=== PATIENT | female | born 1970 | race Caucasian/White ===

== ENCOUNTER 2018-01-15 10:51 | Inpatient (IN) | payer BC ==
--- NOTE | 2018-01-15 12:10 | HP ---
CIWA Score - CIWA Score Nausea/Vomitin Muscle Tremors: 3 Anxiety: 3 Agitation: 2 Paroxysmal Sweats: 1-Minimal Palms Moist Orientation: 0-Oriented Tacttile Disturbances: 1-Very Mild Itch/Numbness Auditory Disturbances: 1-Very Mild Visual Disturbances: 0-None Headache: 2-Mild CIWA-Ar Total Score: 16 Admission ROS BHS - HPI Chief Complaint: i need help to stop drinking alcoho,heroin abused Allergies/Adverse Reactions: Allergies Allergy/AdvReac Type Severity Reaction Status Date / Time Fish Containing Products Allergy Verified 01/15/18 12:04 History of Present Illness: this 47 years old female with alcohol and heroin dependence,seeking detox, withdrawal symptom,last detox 2017 unknown facility in the city seen in [place] last night history of anemia weight loss no significant period of sobriety Exam Limitations: No Limitations - Ebola screening Have you traveled outside of the country in the last 21 days: No Have you had contact with anyone from an Ebola affected area: No Have you been sick,other than usual withdrawal symptoms: No Do you have a fever: No - Review of Systems Constitutional: Loss of Appetite, Malaise, Night Sweats, Changes in sleep, Weakness, Unintentional Wgt. Loss EENT: reports: Nose Congestion Respiratory: reports: No Symptoms reported Cardiac: reports: No Symptoms Reported GI: reports: Nausea, Vomiting, Abdominal cramping : reports: No Symptoms Reported Musculoskeletal: reports: Back Pain, Muscle Pain Integumentary: reports: Dryness Neuro: reports: Headache, Tremors Endocrine: reports: No Symptoms Reported Hematology: reports: No Symptoms Reported Psychiatric: reports: No Sypmtoms Reported, Judgement Intact, Mood/Affect Appropiate Patient History - Patient Medical History Hx Anemia: No Hx Asthma: No Hx Chronic Obstructive Pulmonary Disease (COPD): No Hx Cancer: No Hx Cardiac Disorders: No Hx Congestive Heart Failure: No Hx Hypertension: No Hx Hypercholesterolemia: No Hx Pacemaker: No HX Cerebrovascular Accident: No Hx Seizures: No Hx Dementia: No Hx Diabetes: No Hx Gastrointestinal Disorders: No Hx Liver Disease: No Hx Genitourinary Disorders: No Hx Sexually Transmitted Disorders: No Hx Renal Disease (ESRD): No Hx Thyroid Disease: No Hx Human Immunodeficiency Virus (HIV): No (last ) Hx Hepatitis C: No Hx Depression: No Hx Suicide Attempt: No Hx Bipolar Disorder: No Hx Schizophrenia: No Other Medical History: no suicidal,no homicidal - Patient Surgical History Past Surgical History: No - PPD History Previous Implant?: Yes Documented Results: Negative w/o proof Implanted On Prior [facility] Admission?: No PPD to be Administered?: Yes - Reproductive History Patient is a Female of Child Bearing Age (11 -55 yrs old): Yes Last Menstrual Period: 12/04/17 Patient : No - Smoking Cessation Smoking history: Never smoked - Substance & Tx. History Hx Alcohol Use: Yes Hx Substance Use: Yes Substance Use Type: Alcohol, Heroin Hx Substance Use Treatment: Yes (2017 unknown facility ) Family Disease History - Family Disease History Family Disease History: Other: Father (alcohol ) Admission Physical Exam [facility] - Vital Signs Vital Signs: Vital Signs - 24 hr 01/15/18 01/15/18 11:23 11:36 Temperature 97.4 F L 97.4 F L Pulse Rate 97 H 97 H Respiratory 18 18 Rate Blood Pressure 101/68 101/68 - Physical General Appearance: Yes: Moderate Distress, Tremorous, Irritable, Sweating, Anxious HEENTM: Yes: Normal ENT Inspection, ROSALBA, Pharynx Normal Respiratory: Yes: Within Normal Limits, Lungs Clear, Normal Breath Sounds Neck: Yes: Within Normal Limits, Supple, Trachea in good position Breast: Yes: Breast Exam Deferred Cardiology: Yes: Within Normal Limits, Regular Rhythm, Regular Rate, S1, S2 Abdominal: Yes: Within Normal Limits, Normal Bowel Sounds, Non Tender, Flat, Soft Genitourinary: Yes: Within Normal Limits Back: Yes: Muscle Spasm Musculoskeletal: Yes: full range of Motion, Back pain, Muscle Pain Extremities: Yes: Tremors Neurological: Yes: building maintenance mechanic II-XII NML intact, Alert, Motor Strength 5/5 Integumentary: Yes: Dry, Other (tattoes) Lymphatic: Yes: Within Normal Limits - Diagnostic (1) Alcohol dependence with uncomplicated withdrawal Current Visit: Yes Status: Acute (2) Heroin abuse Current Visit: Yes Status: Acute (3) Dehydration Current Visit: Yes Status: Acute (4) Weight loss Current Visit: Yes Status: Acute Cleared for Admission [facility] - Detox or Rehab [facility] Level of Care: Medically Managed Detox Regimen/Protocol: Librium (urine for drug screeing negative for opiate, patient is awared she will not get methadone ) [facility] Breath Alcohol Content Breath Alcohol Content: 0.088 Urine Pregancy Test - Result Urine Test Results: Negative- NO Line Present Urine Drug Screen - Results Drug Screen Negative: No Urine Drug Screen Results: BZO-Benzodiazepines, TCA-Tricyclic Antidepress
[2018-01-15] MEDS ORDERED: MAGNESIUM HYDROX 2400MG/30ML ORAL SUSPENSION 30 ML CUP PO PRN (12:31)
[2018-01-15] MEDS ORDERED: guaiFENesin/D-METHORPHAN HB 10 ML UNIT-DOSE CUPS PO PRN (12:31)
[2018-01-15] MEDS ORDERED: IBUPROFEN 400 MG TABLET (FP) PO PRN (12:31)
[2018-01-15] MEDS ORDERED: LOPERAMIDE HCL 2 MG CAPSULE PO PRN (12:31)
[2018-01-15] MEDS ORDERED: MAGNESIUM CITRATE 300 ML BOTTLE PO PRN (12:31)
[2018-01-15] MEDS ORDERED: P-EPHED 60MG/TRIPROLIDI 2.5MG TABLET PO PRN (12:31)
[2018-01-15] MEDS ORDERED: MENTHOL/PHENOL 1 EACH UD MM PRN (12:31)
[2018-01-15] MEDS ORDERED: MAG HYDROX/AL HYDROX/SIMETH 30 ML UNIT-DOSE CUP PO PRN (12:31)
[2018-01-15] MEDS ORDERED: chlordiazePOXIDE HCL 25 MG CAPSULE PO PRN (12:31)
[2018-01-15] MEDS ORDERED: ACETAMINOPHEN 325 MG TABLET (FP) PO PRN (12:31)
[2018-01-15] MEDS ORDERED: CYCLOBENZAPRINE HCL 5 MG TABLET PO PRN (12:34)
[2018-01-15] MEDS ORDERED: chlordiazePOXIDE HCL 25 MG CAPSULE PO ONE (13:00)
[2018-01-15] MEDS: chlordiazePOXIDE HCL 25 MG CAPSULE PO SCH ×2 (17:53→22:34)
[2018-01-15] MEDS ORDERED: MELATONIN 5 MG TABLETS PO PRN (22:00)
[2018-01-15] MEDS: cloNIDine HCL 0.1 MG TABLET PO SCH (22:34)
[2018-01-15] MEDS: THIAMINE HCL 100 MG TABLET (FP) PO SCH (22:34)
[2018-01-16] MEDS: chlordiazePOXIDE HCL 25 MG CAPSULE PO SCH ×4 (08:27→22:59)
[2018-01-16 10:17] LABS: HEMATOCRIT 22.4 % (32.4-45.2); MCHC 30.8 g/dl (32.0-36.0); MEAN CELL VOLUME 63.4 fl (80-96); MEAN PLT VOLUME 7.7 fl (7.5-11.1); PLATELET COUNT 467 K/MM3 (134-434); RBC 3.54 M/mm3 (3.60-5.2); RDW 21.4 % (11.6-15.6); WHITE BLOOD COUNT 5.8 K/mm3 (4.0-10.0)
[2018-01-16 10:28] LABS: MCH 19.5 pg (25.7-33.7)
[2018-01-16 10:30] LABS: HEMOGLOBIN 6.9 GM/dL (10.7-15.3)
[2018-01-16 10:32] LABS: URINE APPEARANCE SLCLOUDY; URINE BILIRUBIN NEGATIVE (<2.0 mg/dL); URINE COLOR LTYELLOW; URINE GLUCOSE (UA) NEGATIVE (NEGATIVE); URINE KETONE NEGATIVE (NEGATIVE); URINE LEUK ESTERASE NEGATIVE (NEGATIVE); URINE NITRITE NEGATIVE (NEGATIVE); URINE PROTEIN NEGATIVE (NEGATIVE); URINE UROBILINOGEN NEGATIVE mg/dL (0.2-1.0)
[2018-01-16 10:36] LABS: ALK PHOS 64 U/L (45-117); ANION GAP 9 (8-16); BILIRUBIN,TOTAL 0.3 mg/dL (0.2-1.0); BLOOD UREA NITROGEN 16 mg/dL (7-18); CALCIUM 8.6 mg/dL (8.5-10.1); CHLORIDE 104 mmol/L (98-107); CO2 25 mmol/L (21-32); CREATININE 0.7 mg/dL (0.55-1.02); GLUCOSE,RANDOM 80 mg/dL (74-106); SGOT/AST 27 U/L (15-37); SGPT/ALT 25 U/L (12-78); SODIUM 138 mmol/L (136-145); TOT PROT 8.4 g/dl (6.4-8.2)
--- NOTE | 2018-01-16 10:45 | PN ---
S CIWA - CIWA Score Nausea/Vomitin Muscle Tremors: 2 Anxiety: 2 Agitation: 2 Paroxysmal Sweats: 2 Orientation: 0-Oriented Tacttile Disturbances: 1-Very Mild Itch/Numbness Auditory Disturbances: 1-Very Mild Visual Disturbances: 1-Very Mild Sensitivity Headache: 2-Mild CIWA-Ar Total Score: 15 S Progress Note (SOAP) Subjective: Generalized weakness, interrupted sleep, restlessness Objective: 01/16/18 10:42 Vital Signs - 8 hr 01/16/18 01/16/18 01/16/18 03:30 06:00 10:35 Temperature 96.6 F L 97.9 F Pulse Rate 85 96 H Respiratory 16 18 16 Rate Blood Pressure 107/65 94/58 Laboratory Last Values WBC 5.8 K/mm3 (4.0-10.0) 01/16/18 05:30 RBC 3.54 M/mm3 (3.60-5.2) L 01/16/18 05:30 Hgb 6.9 GM/dL (10.7-15.3) L* 01/16/18 05:30 Hct 22.4 % (32.4-45.2) L 01/16/18 05:30 MCV 63.4 fl (80-96) L 01/16/18 05:30 MCH 19.5 pg (25.7-33.7) L 01/16/18 05:30 MCHC 30.8 g/dl (32.0-36.0) L 01/16/18 05:30 RDW 21.4 % (11.6-15.6) H 01/16/18 05:30 Plt Count 467 K/MM3 (134-434) H 01/16/18 05:30 MPV 7.7 fl (7.5-11.1) 01/16/18 05:30 Urine Color Ltyellow 01/16/18 05:50 Urine Appearance Slcloudy 01/16/18 05:50 Urine pH 5.0 (5.0-8.0) 01/16/18 05:50 Ur Specific [place] 1.009 (1.001-1.035) 01/16/18 05:50 Urine Protein Negative (NEGATIVE) 01/16/18 05:50 Urine Glucose (UA) Negative (NEGATIVE) 01/16/18 05:50 Urine Ketones Negative (NEGATIVE) 01/16/18 05:50 Urine Blood Negative (NEGATIVE) 01/16/18 05:50 Urine Nitrite Negative (NEGATIVE) 01/16/18 05:50 Urine Bilirubin Negative (<2.0 mg/dL) 01/16/18 05:50 Urine Urobilinogen Negative mg/dL (0.2-1.0) 01/16/18 05:50 Ur Leukocyte Esterase Negative (NEGATIVE) 01/16/18 05:50 HIV 1&2 Antibody Screen Negative 01/15/18 12:30 HIV P24 Antigen Negative 01/15/18 12:30 Labs noted-low H/H Assessment: 01/16/18 10:43 Withdrawal sx Anemia with critical values, patient reports h/o blood transfusions, most recent in June at a [facility] Plan: Transfer to ED for possible BT Continue detox
[2018-01-16] MEDS: PRENATAL VITAMINS W/ FOLIC ACID TABLET (FP) PO SCH (10:56)
[2018-01-16] MEDS: cloNIDine HCL 0.1 MG TABLET PO SCH ×2 (10:57→22:59)
[2018-01-16] MEDS: THIAMINE HCL 100 MG TABLET (FP) PO SCH (23:00)
[2018-01-17] MEDS: chlordiazePOXIDE HCL 25 MG CAPSULE PO SCH ×2 (06:34→10:41)
[2018-01-17] MEDS: PRENATAL VITAMINS W/ FOLIC ACID TABLET (FP) PO SCH (10:41)
[2018-01-17] MEDS: cloNIDine HCL 0.1 MG TABLET PO SCH (10:41)
--- NOTE | 2018-01-17 15:12 | PN ---
[facility] CIWA - CIWA Score Nausea/Vomitin-No Nausea/No Vomiting Muscle Tremors: 4-Moderate,w/Arms Extend Anxiety: 4-Mod. Anxious/Guarded Agitation: 4-Moderately Restless Paroxysmal Sweats: 1-Minimal Palms Moist Orientation: 0-Oriented Tacttile Disturbances: 0-None Auditory Disturbances: 0-None Visual Disturbances: 0-None Headache: 0-None Present CIWA-Ar Total Score: 13 [facility] Progress Note (SOAP) Subjective: sweat tremor restlessness returned to [facility] after 2 units blood transfusion denies shortness of breath no blood transfusion complication noted eating meals in day room with peers Objective: 01/17/18 15:14 Vital Signs Temperature 96.8 F L 01/17/18 10:00 Pulse Rate 82 01/17/18 10:00 Respiratory Rate 18 01/17/18 10:00 Blood Pressure 105/72 01/17/18 10:00 O2 Sat by Pulse Oximetry (%) Laboratory Last Values WBC 5.8 K/mm3 (4.0-10.0) 01/16/18 05:30 RBC 3.54 M/mm3 (3.60-5.2) L 01/16/18 05:30 Hgb 6.9 GM/dL (10.7-15.3) L* 01/16/18 05:30 Hct 22.4 % (32.4-45.2) L 01/16/18 05:30 MCV 63.4 fl (80-96) L 01/16/18 05:30 MCH 19.5 pg (25.7-33.7) L 01/16/18 05:30 MCHC 30.8 g/dl (32.0-36.0) L 01/16/18 05:30 RDW 21.4 % (11.6-15.6) H 01/16/18 05:30 Plt Count 467 K/MM3 (134-434) H 01/16/18 05:30 MPV 7.7 fl (7.5-11.1) 01/16/18 05:30 Sodium 138 mmol/L (136-145) 01/16/18 05:30 Potassium 4.0 mmol/L (3.5-5.1) 01/16/18 05:30 Chloride 104 mmol/L (98-107) 01/16/18 05:30 Carbon Dioxide 25 mmol/L (21-32) 01/16/18 05:30 Anion Gap 9 (8-16) 01/16/18 05:30 BUN 16 mg/dL (7-18) 01/16/18 05:30 Creatinine 0.7 mg/dL (0.55-1.02) 01/16/18 05:30 Creat Clearance w eGFR > 60 (>60) 01/16/18 05:30 Random Glucose 80 mg/dL (74-106) 01/16/18 05:30 Calcium 8.6 mg/dL (8.5-10.1) 01/16/18 05:30 Total Bilirubin 0.3 mg/dL (0.2-1.0) 01/16/18 05:30 AST 27 U/L (15-37) 01/16/18 05:30 ALT 25 U/L (12-78) 01/16/18 05:30 Alkaline Phosphatase 64 U/L (45-117) 01/16/18 05:30 Total Protein 8.4 g/dl (6.4-8.2) H 01/16/18 05:30 Albumin 4.0 g/dl (3.4-5.0) 01/16/18 05:30 Urine Color Ltyellow 01/16/18 05:50 Urine Appearance Slcloudy 01/16/18 05:50 Urine pH 5.0 (5.0-8.0) 01/16/18 05:50 Ur Specific [place] 1.009 (1.001-1.035) 01/16/18 05:50 Urine Protein Negative (NEGATIVE) 01/16/18 05:50 Urine Glucose (UA) Negative (NEGATIVE) 01/16/18 05:50 Urine Ketones Negative (NEGATIVE) 01/16/18 05:50 Urine Blood Negative (NEGATIVE) 01/16/18 05:50 Urine Nitrite Negative (NEGATIVE) 01/16/18 05:50 Urine Bilirubin Negative (<2.0 mg/dL) 01/16/18 05:50 Urine Urobilinogen Negative mg/dL (0.2-1.0) 01/16/18 05:50 Ur Leukocyte Esterase Negative (NEGATIVE) 01/16/18 05:50 RPR Titer Nonreactive (NONREACTIVE) 01/16/18 05:30 HIV 1&2 Antibody Screen Negative 01/15/18 12:30 HIV P24 Antigen Negative 01/15/18 12:30 lab noted Assessment: 01/17/18 15:14 withdrawal sx s/p blood transfusion Plan: continue detox
[2018-01-17] MEDS: chlordiazePOXIDE 5 MG CAPSULE PO SCH (18:05)
[2018-01-18] MEDS: THIAMINE HCL 100 MG TABLET (FP) PO SCH (00:23)
[2018-01-18] MEDS: cloNIDine HCL 0.1 MG TABLET PO SCH (00:23)
[2018-01-18] MEDS: chlordiazePOXIDE 5 MG CAPSULE PO SCH ×2 (00:23→05:37)
[2018-01-18 07:09] VITALS: BP 106/72; PULSE 64; TEMP 97.7
--- NOTE | 2018-01-18 09:51 | DS ---
[facility] Detox Discharge Summary Admission Date: 01/15/18 Discharge Date: 01/18/18 - History Present History: Alcohol Dependence Additional Comments: 47 years old female admitted on 01/15/18 for alcohol withdrawal sx patient prefers to return home and follow up with primary care hemotologist in [facility] total of six blood transfusion over the past few years reports major drug issue is cocaine encourage chemical rehab program patient said that she lives in the [place] and is closer to [facility] - Physical Exam Results Vital Signs: Vital Signs Temperature 97.7 F 01/18/18 07:08 Pulse Rate 64 01/18/18 07:08 Respiratory Rate 18 01/18/18 07:08 Blood Pressure 106/72 01/18/18 07:08 O2 Sat by Pulse Oximetry (%) Pertinent Admission Physical Exam Findings: alcohol withdrawal sx Vital Signs Temperature 97.7 F 01/18/18 07:08 Pulse Rate 64 01/18/18 07:08 Respiratory Rate 18 01/18/18 07:08 Blood Pressure 106/72 01/18/18 07:08 O2 Sat by Pulse Oximetry (%) Laboratory Last Values WBC 5.8 K/mm3 (4.0-10.0) 01/16/18 05:30 RBC 3.54 M/mm3 (3.60-5.2) L 01/16/18 05:30 Hgb 6.9 GM/dL (10.7-15.3) L* 01/16/18 05:30 Hct 22.4 % (32.4-45.2) L 01/16/18 05:30 MCV 63.4 fl (80-96) L 01/16/18 05:30 MCH 19.5 pg (25.7-33.7) L 01/16/18 05:30 MCHC 30.8 g/dl (32.0-36.0) L 01/16/18 05:30 RDW 21.4 % (11.6-15.6) H 01/16/18 05:30 Plt Count 467 K/MM3 (134-434) H 01/16/18 05:30 MPV 7.7 fl (7.5-11.1) 01/16/18 05:30 Sodium 138 mmol/L (136-145) 01/16/18 05:30 Potassium 4.0 mmol/L (3.5-5.1) 01/16/18 05:30 Chloride 104 mmol/L (98-107) 01/16/18 05:30 Carbon Dioxide 25 mmol/L (21-32) 01/16/18 05:30 Anion Gap 9 (8-16) 01/16/18 05:30 BUN 16 mg/dL (7-18) 01/16/18 05:30 Creatinine 0.7 mg/dL (0.55-1.02) 01/16/18 05:30 Creat Clearance w eGFR > 60 (>60) 01/16/18 05:30 Random Glucose 80 mg/dL (74-106) 01/16/18 05:30 Calcium 8.6 mg/dL (8.5-10.1) 01/16/18 05:30 Total Bilirubin 0.3 mg/dL (0.2-1.0) 01/16/18 05:30 AST 27 U/L (15-37) 01/16/18 05:30 ALT 25 U/L (12-78) 01/16/18 05:30 Alkaline Phosphatase 64 U/L (45-117) 01/16/18 05:30 Total Protein 8.4 g/dl (6.4-8.2) H 01/16/18 05:30 Albumin 4.0 g/dl (3.4-5.0) 01/16/18 05:30 Urine Color Ltyellow 01/16/18 05:50 Urine Appearance Slcloudy 01/16/18 05:50 Urine pH 5.0 (5.0-8.0) 01/16/18 05:50 Ur Specific [place] 1.009 (1.001-1.035) 01/16/18 05:50 Urine Protein Negative (NEGATIVE) 01/16/18 05:50 Urine Glucose (UA) Negative (NEGATIVE) 01/16/18 05:50 Urine Ketones Negative (NEGATIVE) 01/16/18 05:50 Urine Blood Negative (NEGATIVE) 01/16/18 05:50 Urine Nitrite Negative (NEGATIVE) 01/16/18 05:50 Urine Bilirubin Negative (<2.0 mg/dL) 01/16/18 05:50 Urine Urobilinogen Negative mg/dL (0.2-1.0) 01/16/18 05:50 Ur Leukocyte Esterase Negative (NEGATIVE) 01/16/18 05:50 RPR Titer Nonreactive (NONREACTIVE) 01/16/18 05:30 HIV 1&2 Antibody Screen Negative 01/15/18 12:30 HIV P24 Antigen Negative 01/15/18 12:30 lab noted patient agrees to follow up with [facility] services - Treatment Hospital Course: Detox Protocol Followed, Detoxed Safely, Responded well, Discharged Condition Good, Rehab Referral Accepted Patient has Accepted a Rehab Referral to: [facility] ser[facility] - Medication Discharge Medications: Ambulatory Orders Chlordiazepoxide [Librium -] 25 mg PO ASDIR 01/16/18 Clonidine HCl [Catapres] 0.1 mg PO BID 01/16/18 Vit/Iron Fum/Folic AC [ Tablet] 1 each PO DAILY 01/16/18 Thiamine HCl [Vitamin B1 -] 100 mg PO HS 01/16/18 - Diagnosis (1) Alcohol dependence with uncomplicated withdrawal Current Visit: Yes Status: Acute (2) Weight loss Current Visit: Yes Status: Acute (3) Anemia Current Visit: Yes Status: Chronic Qualifiers: Anemia type: unspecified type Qualified Code(s): D64.9 - Anemia, unspecified - AMA Did Patient Leave Against Medical Advice: No
--- NOTE | 2018-01-18 11:10 | EKG ---
Test Reason : Blood Pressure : / mmHG Vent. Rate : 100 BPM Atrial Rate : 100 BPM P-R Int : 120 ms QRS Dur : 092 ms QT Int : 362 ms P-R-T Axes : 064 059 -32 degrees QTc Int : 466 ms NORMAL SINUS RHYTHM POSSIBLE LEFT ATRIAL ENLARGEMENT NONSPECIFIC ST AND T WAVE ABNORMALITY ABNORMAL ECG NO PREVIOUS ECGS AVAILABLE Confirmed by SMITHA BRODY MD ([id number]) on 01/18/2018 11:10:19 AM Referred By: Confirmed By:SMITHA BRODY MD
[2018-01-18] MEDS ORDERED: chlordiazePOXIDE HCL 10 MG CAPSULE PO SCH (17:00)
== END 2018-01-18 10:35 | disposition home or self-care (01) | DRG 773 ==
LOC: EDBD → YASAS 10:51 → Y6N 12:32
PROVIDERS: ADMIT Surgery; ATTEND Surgery
PROC: HZ2ZZZZ Detoxification Services for Substance Abuse Treatment (ICD-10-PCS; principal; 2018-01-15)
DX: F10.230 Alcohol dependence with withdrawal, uncomplicated (principal); F11.10 Opioid abuse, uncomplicated; D64.9 Anemia, unspecified; E86.0 Dehydration; R63.4 Abnormal weight loss; Z68.20 Body mass index [BMI] 20.0-20.9, adult
CPT/HCPCS: 36415; 80053; 81003; 85027; 86593; 87389; 93005; 93010; J0735

== ENCOUNTER 2018-01-16 13:18 | Emergency (ER) | payer BC ==
--- NOTE | 2018-01-16 14:15 | PDOC ---
History of Present Illness - General Chief Complaint: Blood Transfusion Stated Complaint: LOW HEMOGLOBIA COUNTS Time Seen by Provider: 01/16/18 13:39 History Source: Patient, Other (detox) - History of Present Illness Timing/Duration: other (today) Past History - Past Medical History Allergies/Adverse Reactions: Allergies Allergy/AdvReac Type Severity Reaction Status Date / Time Fish Containing Products Allergy Verified 01/15/18 12:04 Home Medications: Ambulatory Orders NK [No Known Home Medication] 01/15/18 Anemia: No Asthma: No Cancer: No Cardiac Disorders: No CVA: No COPD: No CHF: No Dementia: No Diabetes: No GI Disorders: No Disorders: No HTN: No Hypercholesterolemia: No Kidney Stones: No Liver Disease: No Seizures: No Thyroid Disease: No - Reproductive History PID: No - Suicide/Smoking/Psychosocial Hx Smoking History: Never smoked Hx Alcohol Use: Yes Drug/Substance Use Hx: Yes Substance Use Type: Alcohol, Heroin Hx Substance Use Treatment: Yes (2017 unknown facility ) Review of Systems - Review of Systems Constitutional: No: Chills, Fever, Malaise, Weakness Respiratory: No: Shortness of Breath Cardiac (ROS): No: Chest Pain, Lightheadedness, Palpitations, Syncope ABD/GI: No: Blood Streaked Bowels, Nausea, Rectal Bleeding, Vomiting, Abdominal cramping *Physical Exam - Physical Exam General Appearance: Yes: Appropriately Dressed. No: Apparent Distress HEENT: positive: Normal Voice Neck: positive: Supple Respiratory/Chest: positive: Lungs Clear, Normal Breath Sounds. negative: Respiratory Distress Cardiovascular: positive: Regular Rate, S1, S2 Gastrointestinal/Abdominal: positive: Soft. negative: Tender Rectal Exam: positive: other (pt refused rectal/guaiac exam) Integumentary: positive: Dry, Warm Neurologic: positive: Fully Oriented, Alert, Normal Mood/Affect ED Treatment Course - LABORATORY CBC & Chemistry Diagram: 01/16/18 15:05 01/16/18 15:05 Medical Decision Making - Medical Decision Making 01/16/18 14:15 47-year-old female, history of polysubstance abuse, anemia, s/p transfusion x 1 at OSH 07/09, endorses h/o menorrhagia, LMP last month, no h/o fibroids, detox at [address] [place] for hemoglobin of 6 on routine labs today. Patient states she feels well and denies any dizziness, weakness, shortness of breath, abd pain, vag bleed, melena or BRBPR. States she currently does not have a PMD see exam Asx anemia Hgb ~6 at [facility] today Endorses h/o menorrhagia, no known fibroids, LMP 12/07 S/p transfusion x 1, 07/09 at OSH Poor f/u Stable and well raimundo w/ unremarkable exam, patient refusing rectal exam at this time -labs including iron studies -transfuse -admit to OBs though pt states she will not stay overnight though agrees to transfusion at this time (A&O x 3, does not appear acutely intoxicated, appears to have capacity at this time) 01/16/18 15:41 Microcytic hypochromic anemia with hemoglobin of 7 on labs. Unsure baselien as no prior lab on record here. Will transfuse 2 units. Patient told that usually patients get admitted after transfusion to observe for any potential reactions. Patient verbalized understanding, but continues to state that she agrees to transfusion, but wants to be transferred back to [address] [place] [address]. ED attending aware 01/16/18 15:48 Per lab, need additional tubes for iron studies. Patient informed but at this time refusing for ER staff to draw additional specimen 01/16/18 16:56 Pt finally consents to vitals taken and stable. Blood ready 01/16/18 19:09 Pt signed out to spike ASHLEY who is made aware that patient does not want to be kept for observation overnight and will most likely after signing out AGAINST MEDICAL ADVICE to return to [facility] *DC/Admit/Observation/Transfer Diagnosis at time of Disposition: Anemia Qualifiers: Anemia type: unspecified type Qualified Code(s): D64.9 - Anemia, unspecified - Referrals - Patient Instructions - Post Discharge Activity
[2018-01-16 15:13] LABS: BASO % 1.2 % (0-2.0); EOS % 3.3 % (0-4.5); HEMATOCRIT 22.6 % (32.4-45.2); LYMPH % 40.3 % (8-40); MCH 19.5 pg (25.7-33.7); MCHC 30.8 g/dl (32.0-36.0); MEAN CELL VOLUME 63.3 fl (80-96); MEAN PLT VOLUME 8.6 fl (7.5-11.1); MONO % 8.9 % (3.8-10.2); NEUT % 46.3 % (42.8-82.8); PLATELET COUNT 372 K/MM3 (134-434); RBC 3.57 M/mm3 (3.60-5.2); WHITE BLOOD COUNT 4.4 K/mm3 (4.0-10.0)
[2018-01-16 15:24] LABS: INR 0.96 (0.82-1.09); PROTHROMBIN TIME (PATIENT) 10.9 SEC (9.7-13.0)
[2018-01-16 15:37] LABS: ALBUMIN 3.5 g/dl (3.4-5.0); ANION GAP 10 (8-16); BILIRUBIN,TOTAL 0.3 mg/dL (0.2-1.0); BLOOD UREA NITROGEN 20 mg/dL (7-18); CALCIUM 8.9 mg/dL (8.5-10.1); CHLORIDE 104 mmol/L (98-107); CO2 27 mmol/L (21-32); CREATININE 0.7 mg/dL (0.55-1.02); GLUCOSE,RANDOM 83 mg/dL (74-106); POTASSIUM 3.7 mmol/L (3.5-5.1); SGOT/AST 18 U/L (15-37); SGPT/ALT 22 U/L (12-78); SODIUM 141 mmol/L (136-145); TOT PROT 7.7 g/dl (6.4-8.2)
[2018-01-16 15:39] LABS: ALK PHOS 65 U/L (45-117)
[2018-01-16 16:02] LABS: ANISOCYTOSIS 2+; PLATELET ESTIMATE ADEQUATE
--- NOTE | 2018-01-16 23:41 | PDOC ---
*Physical Exam - Vital Signs Last Vital Signs Temp Pulse Resp BP Pulse Ox 97.7 F 81 20 105/70 100 01/16/18 17:55 01/16/18 17:55 01/16/18 17:55 01/16/18 17:55 01/16/18 17:55 ED Treatment Course - LABORATORY CBC & Chemistry Diagram: 01/16/18 15:05 01/16/18 15:05 - ADDITIONAL ORDERS Additional order review: Laboratory Results 01/16/18 01/16/18 01/16/18 15:51 15:05 15:05 PT with INR INR Sodium 141 Potassium 3.7 Chloride 104 Carbon Dioxide 27 Anion Gap 10 BUN 20 H Creatinine 0.7 Creat Clearance w eGFR > 60 Random Glucose 83 Calcium 8.9 Ferritin 6.6 L Total Bilirubin 0.3 AST 18 ALT 22 Alkaline Phosphatase 65 Total Protein 7.7 Albumin 3.5 Serum , Qual Blood Type O POSITIVE O POSITIVE Antibody Screen Negative Crossmatch See Detail 01/16/18 01/16/18 15:05 14:31 PT with INR 10.90 INR 0.96 Sodium Potassium Chloride Carbon Dioxide Anion Gap BUN Creatinine Creat Clearance w eGFR Random Glucose Calcium Ferritin Total Bilirubin AST ALT Alkaline Phosphatase Total Protein Albumin Serum , Qual Negative Blood Type Antibody Screen Crossmatch 01/16/18 15:05 RBC 3.57 L MCV 63.3 L MCHC 30.8 L RDW 22.0 H MPV 8.6 D Neutrophils % 46.3 Lymphocytes % 40.3 H Monocytes % 8.9 Eosinophils % 3.3 Basophils % 1.2 Medical Decision Making - Medical Decision Making 01/16/18 23:35 Patient endorsed to de for blood transfusion and disposition. D/W patient the policy of admission to [facility] but is not willing to stay. States she would like to get transfused and go back to [facility] for her Detox. Patient completed 1st unit without complications. 01/17/18 01:37 Patient completed second unit of blood, found sleeping in no acute distress. She 3 with steady gait. Will discharge to [facility] for detox. I discussed the physical exam findings, ancillary test results and final diagnoses with the patient. I answered all of the patient's questions. The patient was satisfied with the care received and felt comfortable with the discharge plan and treatment plan. The Patient agrees to follow up with the primary care physician within 24-72 hours. *DC/Admit/Observation/Transfer Diagnosis at time of Disposition: Anemia Qualifiers: Anemia type: unspecified type Qualified Code(s): D64.9 - Anemia, unspecified - Discharge Dispostion Disposition: HOME Condition at time of disposition: Stable - Referrals - Patient Instructions Printed Discharge Instructions: DI for Iron Deficiency Anemia-Adult Additional Instructions: Your Discharge Instructions: You your being transferred to [facility] for continuation of detox. You must call primary care physician within 24 hours to arrange follow-up. Return to the Emergency Department with any new, persistent or worsening symptoms, for fever, chills, SOB, dizziness or any other concerning changes that may occur. - Post Discharge Activity - Transfer to Acute Care Facility Receiving Facility: Other hosp. not listed ([facility])
[2018-01-17 02:12] VITALS: BP 122/74; PULSE 68; TEMP 98.2
== END 2018-01-17 03:38 | disposition home or self-care (01) ==
LOC: JER 13:18
PROC: 30263N1 (ICD-10-PCS; principal; 2018-01-16)
DX: D64.9 Anemia, unspecified (principal); F11.20 Opioid dependence, uncomplicated; F10.20 Alcohol dependence, uncomplicated; Z87.42 Personal history of other diseases of the female genital tract
CPT/HCPCS: 36415; 36430; 80053; 82728; 84703; 85025; 85610; 86850; 86900; 86901; 86922; 99284-25; P9038; P9058

== ENCOUNTER 2018-03-20 12:32 | Inpatient (IN) | payer BC ==
[2018-03-20 12:47] VITALS: BMI 21.9
--- NOTE | 2018-03-20 13:05 | HP ---
COWS - Scale Resting Pulse: 1= ID [id number] Sweatin= No chills or Flushing Restless Observation: 0= Sits Still Pupil Size: 0= Normal to Room Light Bone or Joint Aches: 1= Mild Discomfort Runny Nose/ Eye Tearin= Nasal Congestion GI Upset > 30mins: 1= Stomach Cramp Tremor Observation: 2= Slight Tremor Visible Yawning Observation: 0= None Anxiety or Irritability: 1=Feels Anxious/Irritable Goose Flesh Skin: 0=Smooth Skin COWS Score: 7 CIWA Score - CIWA Score Nausea/Vomitin-Mild Nausea/No Vomiting Muscle Tremors: 4-Moderate,w/Arms Extend Anxiety: 4-Mod. Anxious/Guarded Agitation: 1-Slight > Activity Paroxysmal Sweats: No Perspiration Orientation: 0-Oriented Tacttile Disturbances: 1-Very Mild Itch/Numbness Auditory Disturbances: 1-Very Mild Visual Disturbances: 0-None Headache: 1-Very Mild CIWA-Ar Total Score: 13 Admission ROS BHS - HPI Chief Complaint: I'm here for detox, I had a seizure, I can't stop, I'm on the street Allergies/Adverse Reactions: Allergies Allergy/AdvReac Type Severity Reaction Status Date / Time Fish Containing Products Allergy Verified 03/20/18 13:27 History of Present Illness: 48 yo woman here for detox alcohol and opiates. Denies any benzo use (urine tox + bzo) - states had a seizure three days ago. Last year was on methadone program but stopped going as too far and began buying on street. States she gets very sick when she tries to stop. Noted severe anemia from January 16, 2018 admission but patient left ED prior to transfusionon 01/16/18 and never did work up - states she's had anemia since she was a baby, asymptomatic. Exam Limitations: Clinical Condition - Ebola screening Have you traveled outside of the country in the last 21 days: No (N) Have you had contact with anyone from an Ebola affected area: No Have you been sick,other than usual withdrawal symptoms: No Do you have a fever: No - Review of Systems Constitutional: Loss of Appetite, Malaise, Weakness EENT: reports: Blurred Vision, Nose Congestion Respiratory: reports: No Symptoms reported Cardiac: reports: No Symptoms Reported GI: reports: Nausea, Poor Appetite, Poor Fluid Intake, Abdominal cramping : reports: Frequency Musculoskeletal: reports: Back Pain, Muscle Pain Integumentary: reports: Dryness Neuro: reports: No Symptoms reported Endocrine: reports: No Symptoms Reported Hematology: reports: Anemia Psychiatric: reports: Judgement Intact, Mood/Affect Appropiate, Anxious Other Systems: Reviewed and Negative Patient History - Patient Medical History Hx Anemia: Yes (states life long as a baby) Hx Asthma: No Hx Chronic Obstructive Pulmonary Disease (COPD): No Hx Cancer: No Hx Cardiac Disorders: No Hx Congestive Heart Failure: No Hx Hypertension: No Hx Hypercholesterolemia: No Hx Pacemaker: No HX Cerebrovascular Accident: No Hx Seizures: Yes (last one 03/17/18) Hx Dementia: No Hx Diabetes: No Hx Gastrointestinal Disorders: No Hx Liver Disease: No Hx Genitourinary Disorders: No Hx Sexually Transmitted Disorders: No Hx Renal Disease (ESRD): No Hx Thyroid Disease: No Hx Human Immunodeficiency Virus (HIV): No (last 01/10/17) Hx Hepatitis C: No Hx Depression: Yes (October 2017 [place]) Hx Suicide Attempt: Yes Hx Bipolar Disorder: Yes Hx Schizophrenia: No - Patient Surgical History Past Surgical History: No - PPD History Previous Implant?: Yes Documented Results: Negative w/o proof Implanted On Prior [facility] Admission?: Yes Date: 01/17/18 (never read) PPD to be Administered?: Yes - Reproductive History Patient is a Female of Child Bearing Age (11 -55 yrs old): Yes Last Menstrual Period: 12/04/17 - Smoking Cessation Smoking history: Never smoked Have you smoked in the past 12 months: No - Substance & Tx. History Hx Alcohol Use: Yes Hx Substance Use: Yes Substance Use Type: Alcohol, Cocaine, Opiates Hx Substance Use Treatment: Yes - Substances Abused heroin Route: Smoking Frequency: 3-6 times per week Amount used: 4 bags Age of first use: 46 Date of Last Use: 03/16/18 non-prescribed methadone Route: Oral Frequency: 1-2 times per week Amount used: 60 mg Age of first use: 47 Date of Last Use: 03/17/18 alcohol Route: Oral Frequency: Daily Amount used: 3 pints vodka, five cans 12 oz Age of first use: 42 Date of Last Use: 03/20/18 cocaine Route: Inhalation Frequency: 1-2 times per week Amount used: 4 bags Age of first use: 44 Date of Last Use: 03/15/18 Family Disease History - Family Disease History Family Disease History: Other: Father (alcohol ), Mother (living - ), Brother (two - healthy), Daughter (two -alcohol) Admission Physical Exam [facility] - Vital Signs Vital Signs: Vital Signs - 24 hr 03/20/18 12:45 Temperature 97.6 F Pulse Rate 80 Respiratory 19 Rate Blood Pressure 113/80 - Physical General Appearance: Yes: Nourished, Appropriately Dressed, Mild Distress, Thin, Tremorous HEENTM: Yes: EOMI, Hearing grossly Normal, Normocephalic, Normal Voice, Nasal Congestion Respiratory: Yes: Normal Breath Sounds, No Respiratory Distress Neck: Yes: No masses,lesions,Nodules, Supple Breast: Yes: Breast Exam Deferred Cardiology: Yes: Regular Rhythm, Regular Rate Abdominal: Yes: Flat, Soft Genitourinary: Yes: Frequency Back: Yes: Normal Inspection Musculoskeletal: Yes: full range of Motion, Gait Steady Extremities: Yes: Non-Tender Neurological: Yes: Alert, Normal Mood/Affect, Normal Response Integumentary: Yes: Normal Color, Warm Lymphatic: Yes: Within Normal Limits - Diagnostic (1) Opioid dependence with withdrawal Current Visit: Yes Status: Chronic (2) Alcohol dependence with uncomplicated withdrawal Current Visit: Yes Status: Chronic (3) Anemia Current Visit: Yes Status: Chronic Qualifiers: Anemia type: unspecified type Qualified Code(s): D64.9 - Anemia, unspecified (4) Weight loss Current Visit: Yes Status: Chronic Cleared for Admission [facility] - Detox or Rehab [facility] Level of Care: Medically Managed Detox Regimen/Protocol: Methadone/Librium [facility] Breath Alcohol Content Breath Alcohol Content: 0 Urine Pregancy Test - Result Urine Test Results: Negative- NO Line Present Urine Drug Screen - Results Drug Screen Negative: No Urine Drug Screen Results: BZO-Benzodiazepines, MTD-Methadone
[2018-03-20] MEDS ORDERED: guaiFENesin/D-METHORPHAN HB 10 ML UNIT-DOSE CUPS PO PRN (13:30)
[2018-03-20] MEDS ORDERED: MAGNESIUM HYDROX 2400MG/30ML ORAL SUSPENSION 30 ML CUP PO PRN (13:30)
[2018-03-20] MEDS ORDERED: chlordiazePOXIDE HCL 25 MG CAPSULE PO PRN (13:30)
[2018-03-20] MEDS ORDERED: P-EPHED 60MG/TRIPROLIDI 2.5MG TABLET PO PRN (13:30)
[2018-03-20] MEDS ORDERED: MAGNESIUM CITRATE 300 ML BOTTLE PO PRN (13:30)
[2018-03-20] MEDS ORDERED: MAG HYDROX/AL HYDROX/SIMETH 30 ML UNIT-DOSE CUP PO PRN (13:30)
[2018-03-20] MEDS ORDERED: LOPERAMIDE HCL 2 MG CAPSULE PO PRN (13:30)
[2018-03-20] MEDS ORDERED: MENTHOL/PHENOL 1 EACH UD MM PRN (13:30)
[2018-03-20] MEDS ORDERED: ACETAMINOPHEN 325 MG TABLET (FP) PO PRN (13:30)
[2018-03-20] MEDS ORDERED: IBUPROFEN 400 MG TABLET (FP) PO PRN (13:30)
[2018-03-20] MEDS ORDERED: METHADONE HCL 10 MG TABLET (FOR DETOX USE ONLY) PO ONE ×2 (14:15→23:00)
[2018-03-20] MEDS: FERROUS SO4 325 MG TABLET (FP) PO SCH (17:30)
[2018-03-20] MEDS: chlordiazePOXIDE HCL 25 MG CAPSULE PO SCH ×2 (17:31→22:30)
[2018-03-20] MEDS: MELATONIN 5 MG TABLETS PO PRN (22:30)
[2018-03-20] MEDS: THIAMINE HCL 100 MG TABLET (FP) PO SCH (22:30)
[2018-03-20] MEDS ORDERED: COLLOIDAL OATMEAL 1 BAR EACH TP PRN (23:30)
[2018-03-21] MEDS: chlordiazePOXIDE HCL 25 MG CAPSULE PO SCH ×4 (06:00→22:45)
[2018-03-21] MEDS: FERROUS SO4 325 MG TABLET (FP) PO SCH ×2 (08:05→18:01)
[2018-03-21] MEDS ORDERED: METHADONE HCL 10 MG TABLET (FOR DETOX USE ONLY) PO SCH (10:00)
[2018-03-21] MEDS ORDERED: PRENATAL VITAMINS W/ FOLIC ACID TABLET (FP) PO SCH (10:00)
[2018-03-21 11:15] LABS: HEMATOCRIT 29.5 % (32.4-45.2); HEMOGLOBIN 9.3 GM/dL (10.7-15.3); MCH 26.1 pg (25.7-33.7); MCHC 31.6 g/dl (32.0-36.0); MEAN CELL VOLUME 82.5 fl (80-96); MEAN PLT VOLUME 8.8 fl (7.5-11.1); PLATELET COUNT 225 K/MM3 (134-434); RBC 3.57 M/mm3 (3.60-5.2); RDW 25.8 % (11.6-15.6); WHITE BLOOD COUNT 5.5 K/mm3 (4.0-10.0)
[2018-03-21 11:37] LABS: ALBUMIN 3.2 g/dl (3.4-5.0); ALK PHOS 47 U/L (45-117); ANION GAP 8 MMOL/L (8-16); BILIRUBIN,TOTAL 0.3 mg/dL (0.2-1); BLOOD UREA NITROGEN 18 mg/dL (7-18); CALCIUM 9.1 mg/dL (8.5-10.1); CHLORIDE 104 mmol/L (98-107); CO2 27 mmol/L (21-32); CREATININE 0.6 mg/dL (0.55-1.3); GLUCOSE,RANDOM 112 mg/dL (74-106); POTASSIUM 3.5 mmol/L (3.5-5.1); SGOT/AST 26 U/L (15-37); SGPT/ALT 23 U/L (13-61); SODIUM 139 mmol/L (136-145); TOT PROT 7.1 g/dl (6.4-8.2)
--- NOTE | 2018-03-21 12:06 | CONSULT ---
[facility] Psychiatric Consult - Data Date of interview: 03/21/18 Admission source: Self-referred Identifying data: Patient is a 48 y/o female zambian speaking, she is single, unemployed, domiciled, SSi recipient, mlther of 2 children Substance Abuse History: She has one prior Detox addmission to [facility], she is here , for ETOH, cocaine and heroin. Drinks Vodka, sniffed heroin daily, and smokes cocaine. Methadone dependent 20 mg po daily. Refer to addiction counselor note for more detailed drug history Medical History: Chronic anemia Psychiatric History: She denies prior psychiatric hospiotalization or treatment. Denies feeling depressed or anxious, denies psychosis or mood swings. Denies suicidal or homicidal ideation Physical/Sexual Abuse/Trauma History: Denied Mental Status Exam - Mental Status Exam Alert and Oriented to: Place, Person Cognitive Function: Fair Patient Appearance: Unkempt Mood: Euthymic Affect: Appropriate Patient Behavior: Cooperative Speech Pattern: Slurred Voice Loudness: Normal Thought Process: Intact Thought Disorder: Not Present Hallucinations: Denies Suicidal Ideation: Denies Homicidal Ideation: Denies Insight/Judgement: Fair Sleep: Fair Appetite: Good Muscle strength/Tone: Normal Gait/Station: Normal Psychiatric Findings - Problem List ([place] 1, 2,3) (1) Alcohol dependence with uncomplicated withdrawal Current Visit: Yes Status: Chronic (2) Anemia Current Visit: Yes Status: Chronic Qualifiers: Anemia type: unspecified type Qualified Code(s): D64.9 - Anemia, unspecified (3) Opioid dependence with withdrawal Current Visit: Yes Status: Chronic (4) Heroin abuse Current Visit: No Status: Acute - Initial Treatment Plan Initial Treatment Plan: Continue detox treatment. Monitor progresss
--- NOTE | 2018-03-21 17:24 | PN ---
[facility] CIWA - CIWA Score Nausea/Vomitin-No Nausea/No Vomiting Muscle Tremors: 3 Anxiety: 2 Agitation: 3 Paroxysmal Sweats: 1-Minimal Palms Moist Orientation: 0-Oriented Tacttile Disturbances: 1-Very Mild Itch/Numbness Auditory Disturbances: 0-None Visual Disturbances: 0-None Headache: 0-None Present CIWA-Ar Total Score: 10 BHS COWS - Scale Resting Pulse: 0= AL 80 or Below Sweatin= Chills/Flushing Restless Observation: 1= Difficult to Sit Still Pupil Size: 0= Normal to Room Light Bone or Joint Aches: 1= Mild Discomfort Runny Nose/ Eye Tearin= Nasal Congestion GI Upset > 30mins: 1= Stomach Cramp Tremor Observation of Outstretched Hands: 2= Slight Tremor Visible Yawning Observation: 2= >3x During Session Anxiety or Irritability: 1=Feels Anxious/Irritable Goose Flesh Skin: 0=Smooth Skin COWS Score: 10 S Progress Note (SOAP) Subjective: body ache trouble sleep at night itching skin sweat Objective: 03/21/18 17:23 Vital Signs Temperature 97.3 F L 03/21/18 14:11 Pulse Rate 87 03/21/18 14:11 Respiratory Rate 16 03/21/18 14:11 Blood Pressure 111/72 03/21/18 14:11 O2 Sat by Pulse Oximetry (%) Laboratory Last Values WBC 5.5 K/mm3 (4.0-10.0) 03/21/18 07:49 RBC 3.57 M/mm3 (3.60-5.2) L 03/21/18 07:49 Hgb 9.3 GM/dL (10.7-15.3) L 03/21/18 07:49 Hct 29.5 % (32.4-45.2) L D 03/21/18 07:49 MCV 82.5 fl (80-96) D 03/21/18 07:49 MCH 26.1 pg (25.7-33.7) D 03/21/18 07:49 MCHC 31.6 g/dl (32.0-36.0) L 03/21/18 07:49 RDW 25.8 % (11.6-15.6) H 03/21/18 07:49 Plt Count 225 K/MM3 (134-434) D 03/21/18 07:49 MPV 8.8 fl (7.5-11.1) 03/21/18 07:49 Sodium 139 mmol/L (136-145) 03/21/18 07:49 Potassium 3.5 mmol/L (3.5-5.1) 03/21/18 07:49 Chloride 104 mmol/L (98-107) 03/21/18 07:49 Carbon Dioxide 27 mmol/L (21-32) 03/21/18 07:49 Anion Gap 8 MMOL/L (8-16) 03/21/18 07:49 BUN 18 mg/dL (7-18) 03/21/18 07:49 Creatinine 0.6 mg/dL (0.55-1.3) 03/21/18 07:49 Creat Clearance w eGFR > 60 (>60) 03/21/18 07:49 Random Glucose 112 mg/dL (74-106) H 03/21/18 07:49 Calcium 9.1 mg/dL (8.5-10.1) 03/21/18 07:49 Total Bilirubin 0.3 mg/dL (0.2-1) 03/21/18 07:49 AST 26 U/L (15-37) 03/21/18 07:49 ALT 23 U/L (13-61) 03/21/18 07:49 Alkaline Phosphatase 47 U/L (45-117) 03/21/18 07:49 Total Protein 7.1 g/dl (6.4-8.2) 03/21/18 07:49 Albumin 3.2 g/dl (3.4-5.0) L 03/21/18 07:49 RPR Titer Nonreactive (NONREACTIVE) 03/21/18 07:49 lab noted Assessment: 03/21/18 17:23 withdrawal sx Plan: continue detox
--- NOTE | 2018-03-21 17:56 | PN ---
Mary Progress Note Note: patient did not want to complete treatment,all attempts to convince patient to stay with no avail, seen by counselor,signed release ama,risks of withdrawal and relapsing explained ,advise to go to er if emergency medical problem
--- NOTE | 2018-03-21 18:01 | PN ---
S Progress Note Note: patient changed her mind and will stay
[2018-03-21] MEDS: THIAMINE HCL 100 MG TABLET (FP) PO SCH (22:45)
[2018-03-21] MEDS: MELATONIN 5 MG TABLETS PO PRN (22:45)
[2018-03-22] MEDS: chlordiazePOXIDE HCL 25 MG CAPSULE PO SCH (05:21)
[2018-03-22 06:17] VITALS: BP 108/70; PULSE 79; TEMP 96.6
[2018-03-22] MEDS: FERROUS SO4 325 MG TABLET (FP) PO SCH (07:15)
--- NOTE | 2018-03-22 08:40 | PN ---
S Progress Note Note: pt insisted to leave AMA. pt states she wants to go see her mom. Pt signed out AMA.
--- NOTE | 2018-03-22 08:44 | DS ---
[facility] Detox Discharge Summary Admission Date: 03/20/18 - History Present History: Alcohol Dependence, Opioid Dependence - Physical Exam Results Vital Signs: Vital Signs Temperature 96.6 F L 03/22/18 06:00 Pulse Rate 79 03/22/18 06:00 Respiratory Rate 16 03/22/18 06:00 Blood Pressure 108/70 03/22/18 06:00 O2 Sat by Pulse Oximetry (%) - Treatment Hospital Course: Discharged Condition Good - Medication Discharge Medications: Ambulatory Orders Ferrous Sulfate 325 mg PO DAILY 03/20/18 Multivitamin [Multiple Vitamins] 1 each PO DAILY 03/20/18 - Diagnosis (1) Alcohol dependence with uncomplicated withdrawal Current Visit: Yes Status: Chronic (2) Anemia Current Visit: Yes Status: Chronic Qualifiers: Anemia type: unspecified type Qualified Code(s): D64.9 - Anemia, unspecified (3) Opioid dependence with withdrawal Current Visit: Yes Status: Chronic (4) Weight loss Current Visit: Yes Status: Chronic (5) Dehydration Current Visit: No Status: Acute (6) Heroin abuse Current Visit: No Status: Acute - AMA Did Patient Leave Against Medical Advice: Yes (going home)
[2018-03-22] MEDS ORDERED: METHADONE HCL 5 MG TABLET (FOR DETOX USE ONLY) PO SCH (10:00)
[2018-03-22] MEDS ORDERED: chlordiazePOXIDE 5 MG CAPSULE PO SCH (17:00)
--- NOTE | 2018-03-23 11:09 | EKG ---
Test Reason : Blood Pressure : / mmHG Vent. Rate : 082 BPM Atrial Rate : 082 BPM P-R Int : 124 ms QRS Dur : 092 ms QT Int : 366 ms P-R-T Axes : 058 061 031 degrees QTc Int : 427 ms NORMAL SINUS RHYTHM NORMAL ECG Confirmed by Dony Romero MD ([id number]) on 03/23/2018 11:09:33 AM Referred By: Confirmed By:Dony Romero MD
[2018-03-23] MEDS ORDERED: chlordiazePOXIDE HCL 10 MG CAPSULE PO SCH (17:00)
[2018-03-24] MEDS ORDERED: METHADONE HCL 10 MG TABLET (FOR DETOX USE ONLY) PO SCH (10:00)
[2018-03-25] MEDS ORDERED: METHADONE HCL 5 MG TABLET (FOR DETOX USE ONLY) PO SCH (06:00)
== END 2018-03-22 09:40 | disposition left against medical advice (07) | DRG 770 ==
LOC: YASAS 12:32 → Y6N 13:43
PROC: HZ2ZZZZ Detoxification Services for Substance Abuse Treatment (ICD-10-PCS; principal; 2018-03-20)
DX: F11.23 Opioid dependence with withdrawal (principal); F10.230 Alcohol dependence with withdrawal, uncomplicated; D64.9 Anemia, unspecified; E86.0 Dehydration; Z86.69 Personal history of other diseases of the nervous system and sense organs; Z91.013 Allergy to seafood; Z87.898 Personal history of other specified conditions
CPT/HCPCS: 36415; 80053; 85027; 86593; 93005; 93010

== ENCOUNTER 2018-04-30 12:42 | Inpatient (IN) | payer BC ==
[2018-04-30 13:00] VITALS: BMI 21.6
--- NOTE | 2018-04-30 20:30 | HP ---
CIWA Score Nausea/Vomitin Muscle Tremors: 4-Moderate,w/Arms Extend Anxiety: 3 Agitation: 3 Paroxysmal Sweats: 1-Minimal Palms Moist Orientation: 1-Uncertain about Date Tacttile Disturbances: 0-None Auditory Disturbances: 0-None Visual Disturbances: 0-None Headache: 3-Moderate CIWA-Ar Total Score: 17 - Admission Criteria [facility] Guidelines: Admission for Medically Managed Detox: Requires at least one of the followin. CIWA greater than 12 2. Seizures within the past 24 hours 3. Delirium tremens within the past 24 hours 4. Hallucinations within the past 24 hours 5. Acute intervention needed for co occurring medical disorder 6. Acute intervention needed for co occurring psychiatric disorder 7. Severe withdrawal that cannot be handled at a lower level of care (continued vomiting, continued diarrhea, abnormal vital signs) requiring intravenous medication and/or fluids 8. Admission ROS S - HPI Chief Complaint: Alcohol withdrawal symptoms Allergies/Adverse Reactions: Allergies Allergy/AdvReac Type Severity Reaction Status Date / Time Fish Containing Products Allergy Verified 04/30/18 21:25 History of Present Illness: 48 years old female with a long history of alcohol dependence is seeking admission to detox. Patient has been in previous detox and reports insignificant period of sobriety. Patient has medical history of seizures, anemia and depression. She reports suicide attempt at age 42 and denies suicidal ideation at this time. - Ebola screening Have you traveled outside of the country in the last 21 days: No Have you had contact with anyone from an Ebola affected area: No Have you been sick,other than usual withdrawal symptoms: No Patient History - Patient Medical History Hx Anemia: Yes (Ferrous Sulfate) Hx Asthma: No Hx Chronic Obstructive Pulmonary Disease (COPD): No Hx Cancer: No Hx Cardiac Disorders: No Hx Congestive Heart Failure: No Hx Hypertension: No Hx Hypercholesterolemia: No Hx Pacemaker: No HX Cerebrovascular Accident: No Hx Seizures: Yes (last one 03/17/18 - Not on medication) Hx Dementia: No Hx Diabetes: No Hx Gastrointestinal Disorders: No Hx Liver Disease: No Hx Genitourinary Disorders: No Hx Sexually Transmitted Disorders: No Hx Renal Disease (ESRD): No Hx Thyroid Disease: No Hx Human Immunodeficiency Virus (HIV): No (last 01/10/17) Hx Hepatitis C: No Hx Depression: Yes (Not on medication) Hx Suicide Attempt: Yes (Denies suicidal ideation at this time) Hx Bipolar Disorder: Yes Hx Schizophrenia: No - Patient Surgical History Past Surgical History: No - PPD History Previous Implant?: Yes Documented Results: Negative w/o proof Implanted On Prior [facility] Admission?: No Date: 01/17/18 PPD to be Administered?: Yes - Reproductive History Patient is a Female of Child Bearing Age (11 -55 yrs old): Yes Last Menstrual Period: 04/10/18 Patient : No - Smoking Cessation Smoking history: Never smoked Have you smoked in the past 12 months: No Hx Chewing Tobacco Use: No Initiated information on smoking cessation: No - Substance & Tx. History Hx Alcohol Use: Yes Hx Substance Use: Yes Substance Use Type: Alcohol, Cocaine Hx Substance Use Treatment: Yes ([facility]) - Substances Abused Alcohol Route: Oral Frequency: Daily Amount used: 4 BOTTLES OF VODKA Age of first use: 20 Date of Last Use: 04/30/18 Family Disease History - Family Disease History Family Disease History: Other: Father (alcohol ), Mother (living - ), Brother (two - healthy), Daughter (two -alcohol) Admission Physical Exam [facility] - Vital Signs Vital Signs: Vital Signs - 24 hr 04/30/18 12:56 Temperature 97.0 F L Pulse Rate 92 H Respiratory 20 Rate Blood Pressure 129/111 H - Physical General Appearance: Yes: Moderate Distress, Tremorous, Irritable, Anxious HEENTM: Yes: EOMI, Normal ENT Inspection, Normal Voice, [place] Respiratory: Yes: Lungs Clear, Normal Breath Sounds, No Respiratory Distress Neck: Yes: Supple Breast: Yes: Breast Exam Deferred Cardiology: Yes: Tachycardia Abdominal: Yes: Normal Bowel Sounds, Soft Genitourinary: Yes: Within Normal Limits Back: Yes: Normal Inspection Musculoskeletal: Yes: Within Normal Limits Extremities: Yes: Tremors Neurological: Yes: Normal Response Integumentary: Yes: Warm Lymphatic: Yes: Within Normal Limits - Diagnostic (1) Seizure Current Visit: Yes Status: Chronic (2) Depression Current Visit: Yes Status: Chronic Qualifiers: Depression Type: unspecified Qualified Code(s): F32.9 - Major depressive disorder, single episode, unspecified (3) Dehydration Current Visit: Yes Status: Chronic (4) Alcohol dependence with uncomplicated withdrawal Current Visit: Yes Status: Chronic (5) Anemia Current Visit: Yes Status: Chronic Qualifiers: Anemia type: unspecified type Qualified Code(s): D64.9 - Anemia, unspecified Cleared for Admission [facility] - Detox or Rehab [facility] Level of Care: Medically Managed Detox Regimen/Protocol: Librium [facility] Breath Alcohol Content Breath Alcohol Content: 0.002 Urine Pregancy Test - Result Urine Test Results: Negative- NO Line Present Urine Drug Screen - Results Drug Screen Negative: No Urine Drug Screen Results: TOM-Cocaine, BZO-Benzodiazepines
[2018-04-30] MEDS ORDERED: ACETAMINOPHEN 325 MG TABLET (FP) PO PRN (20:47)
[2018-04-30] MEDS ORDERED: MAGNESIUM CITRATE 300 ML BOTTLE PO PRN (20:47)
[2018-04-30] MEDS ORDERED: LOPERAMIDE HCL 2 MG CAPSULE PO PRN (20:47)
[2018-04-30] MEDS ORDERED: IBUPROFEN 400 MG TABLET (FP) PO PRN (20:47)
[2018-04-30] MEDS ORDERED: MENTHOL/PHENOL 1 EACH UD MM PRN (20:47)
[2018-04-30] MEDS ORDERED: MAGNESIUM HYDROX 2400MG/30ML ORAL SUSPENSION 30 ML CUP PO PRN (20:47)
[2018-04-30] MEDS ORDERED: guaiFENesin/D-METHORPHAN HB 10 ML UNIT-DOSE CUPS PO PRN (20:47)
[2018-04-30] MEDS ORDERED: MAG HYDROX/AL HYDROX/SIMETH 30 ML UNIT-DOSE CUP PO PRN (20:47)
[2018-04-30] MEDS ORDERED: P-EPHED 60MG/TRIPROLIDI 2.5MG TABLET PO PRN (20:47)
[2018-04-30] MEDS ORDERED: MELATONIN 5 MG TABLETS PO PRN (22:00)
[2018-04-30] MEDS: chlordiazePOXIDE HCL 25 MG CAPSULE PO SCH (23:48)
[2018-04-30] MEDS: THIAMINE HCL 100 MG TABLET (FP) PO SCH (23:49)
[2018-05-01] MEDS: chlordiazePOXIDE HCL 25 MG CAPSULE PO SCH ×4 (06:13→22:43)
--- NOTE | 2018-05-01 09:59 | PN ---
[facility] CIWA - CIWA Score Nausea/Vomitin Muscle Tremors: None Anxiety: 2 Agitation: 2 Paroxysmal Sweats: No Perspiration Orientation: 0-Oriented Tacttile Disturbances: 2-Mild Itch/Numbness/Burn Auditory Disturbances: 0-None Visual Disturbances: 0-None Headache: 0-None Present CIWA-Ar Total Score: 8 BHS Progress Note (SOAP) Subjective: PATIENT C/O BACK PAIN, ANXIETY, AND MILD ITCHY/ DRY SKIN TO HANDS. Objective: 05/01/18 09:58 Vital Signs Temperature 97.7 F 05/01/18 09:40 Pulse Rate 86 05/01/18 09:40 Respiratory Rate 16 05/01/18 09:40 Blood Pressure 124/81 05/01/18 09:40 O2 Sat by Pulse Oximetry (%) PE: SKIN WARM AND DRY, + DRYNESS TO PALMS CAR S1S2 RESP CTA BL EXT FULL ROM, AMB AD IAN ANXIOUS, PACING IN HALLWAY Assessment: 05/01/18 09:59 WITHDRAWAL SX Plan: CONTINUE DETOX ENCOURAGE ORAL FLUIDS EUCERIN CREAM ADD FLEXERIL FOR BACK PAIN CONTINUE TO MONITOR
[2018-05-01] MEDS ORDERED: MULTIVITAMINS (DAILY MVI) TABLET (FP) PO SCH (10:00)
[2018-05-01] MEDS: PRENATAL VITAMINS W/ FOLIC ACID TABLET (FP) PO SCH (10:06)
[2018-05-01] MEDS: FERROUS SO4 325 MG TABLET (FP) PO SCH (10:06)
[2018-05-01] MEDS: MINERAL OIL/PETROLAT/WATER TOPICAL CREAM 113 GM JAR TP SCH ×2 (10:25→22:43)
[2018-05-01 11:14] LABS: URINE APPEARANCE CLOUDY; URINE BILIRUBIN NEGATIVE (<2.0 mg/dL); URINE COLOR YELLOW; URINE GLUCOSE (UA) NEGATIVE (NEGATIVE); URINE KETONE NEGATIVE (NEGATIVE); URINE LEUK ESTERASE TRACE (NEGATIVE); URINE NITRITE NEGATIVE (NEGATIVE); URINE PROTEIN NEGATIVE (NEGATIVE); URINE UROBILINOGEN NEGATIVE mg/dL (0.2-1.0)
[2018-05-01 11:22] LABS: ALBUMIN 3.8 g/dl (3.4-5.0); ALK PHOS 62 U/L (45-117); ANION GAP 8 MMOL/L (8-16); BILIRUBIN,TOTAL 0.6 mg/dL (0.2-1); BLOOD UREA NITROGEN 15 mg/dL (7-18); CALCIUM 8.9 mg/dL (8.5-10.1); CHLORIDE 102 mmol/L (98-107); CO2 29 mmol/L (21-32); CREATININE 0.7 mg/dL (0.55-1.3); GLUCOSE,RANDOM 105 mg/dL (74-106); POTASSIUM 3.8 mmol/L (3.5-5.1); SGOT/AST 27 U/L (15-37); SGPT/ALT 24 U/L (13-61); SODIUM 139 mmol/L (136-145); TOT PROT 8.1 g/dl (6.4-8.2)
[2018-05-01 11:23] LABS: HEMATOCRIT 29.5 % (32.4-45.2); HEMOGLOBIN 9.4 GM/dL (10.7-15.3); MCH 27.6 pg (25.7-33.7); MCHC 31.7 g/dl (32.0-36.0); MEAN CELL VOLUME 87.1 fl (80-96); MEAN PLT VOLUME 7.4 fl (7.5-11.1); PLATELET COUNT 404 K/MM3 (134-434); RBC 3.39 M/mm3 (3.60-5.2); WHITE BLOOD COUNT 4.7 K/mm3 (4.0-10.0)
[2018-05-01 11:35] LABS: EPI CELLS MODERATE /HPF (FEW); URINE HYALINE CAST 3 /lpf; URINE MUCUS MODERATE
[2018-05-01] MEDS: CYCLOBENZAPRINE HCL 5 MG TABLET PO SCH ×2 (13:26→22:43)
[2018-05-01] MEDS: chlordiazePOXIDE HCL 25 MG CAPSULE PO PRN (17:37)
[2018-05-01] MEDS: THIAMINE HCL 100 MG TABLET (FP) PO SCH (22:43)
[2018-05-02] MEDS: chlordiazePOXIDE HCL 25 MG CAPSULE PO PRN (00:03)
[2018-05-02] MEDS: chlordiazePOXIDE HCL 25 MG CAPSULE PO SCH ×3 (06:01→16:32)
[2018-05-02] MEDS: CYCLOBENZAPRINE HCL 5 MG TABLET PO SCH (06:02)
--- NOTE | 2018-05-02 10:44 | PN ---
[facility] CIWA - CIWA Score Nausea/Vomitin-Mild Nausea/No Vomiting Muscle Tremors: 3 Anxiety: 1-Mildly Anxious Agitation: 1-Slight > Activity Paroxysmal Sweats: 1-Minimal Palms Moist Orientation: 1-Uncertain about Date Tacttile Disturbances: 1-Very Mild Itch/Numbness Auditory Disturbances: 1-Very Mild Visual Disturbances: 0-None Headache: 1-Very Mild CIWA-Ar Total Score: 11 BHS Progress Note (SOAP) Subjective: tremor sweat anxiety restlessness gi idstress Objective: 05/02/18 10:43 Vital Signs Temperature 96.4 F L 05/02/18 07:35 Pulse Rate 89 05/02/18 07:35 Respiratory Rate 18 05/02/18 07:35 Blood Pressure 100/66 05/02/18 07:35 O2 Sat by Pulse Oximetry (%) Laboratory Last Values WBC 4.7 K/mm3 (4.0-10.0) 05/01/18 07:30 RBC 3.39 M/mm3 (3.60-5.2) L 05/01/18 07:30 Hgb 9.4 GM/dL (10.7-15.3) L 05/01/18 07:30 Hct 29.5 % (32.4-45.2) L 05/01/18 07:30 MCV 87.1 fl (80-96) 05/01/18 07:30 MCH 27.6 pg (25.7-33.7) 05/01/18 07:30 MCHC 31.7 g/dl (32.0-36.0) L 05/01/18 07:30 RDW 16.0 % (11.6-15.6) H 05/01/18 07:30 Plt Count 404 K/MM3 (134-434) D 05/01/18 07:30 MPV 7.4 fl (7.5-11.1) L D 05/01/18 07:30 Sodium 139 mmol/L (136-145) 05/01/18 07:30 Potassium 3.8 mmol/L (3.5-5.1) 05/01/18 07:30 Chloride 102 mmol/L (98-107) 05/01/18 07:30 Carbon Dioxide 29 mmol/L (21-32) 05/01/18 07:30 Anion Gap 8 MMOL/L (8-16) 05/01/18 07:30 BUN 15 mg/dL (7-18) 05/01/18 07:30 Creatinine 0.7 mg/dL (0.55-1.3) 05/01/18 07:30 Creat Clearance w eGFR > 60 (>60) 05/01/18 07:30 Random Glucose 105 mg/dL (74-106) 05/01/18 07:30 Calcium 8.9 mg/dL (8.5-10.1) 05/01/18 07:30 Total Bilirubin 0.6 mg/dL (0.2-1) 05/01/18 07:30 AST 27 U/L (15-37) 05/01/18 07:30 ALT 24 U/L (13-61) 05/01/18 07:30 Alkaline Phosphatase 62 U/L (45-117) 05/01/18 07:30 Total Protein 8.1 g/dl (6.4-8.2) 05/01/18 07:30 Albumin 3.8 g/dl (3.4-5.0) 05/01/18 07:30 Urine Color Yellow 05/01/18 08:30 Urine Appearance Cloudy 05/01/18 08:30 Urine pH 5.0 (5.0-8.0) 05/01/18 08:30 Ur Specific [place] 1.020 (1.010-1.035) 05/01/18 08:30 Urine Protein Negative (NEGATIVE) 05/01/18 08:30 Urine Glucose (UA) Negative (NEGATIVE) 05/01/18 08:30 Urine Ketones Negative (NEGATIVE) 05/01/18 08:30 Urine Blood Negative (NEGATIVE) 05/01/18 08:30 Urine Nitrite Negative (NEGATIVE) 05/01/18 08:30 Urine Bilirubin Negative (<2.0 mg/dL) 05/01/18 08:30 Urine Urobilinogen Negative mg/dL (0.2-1.0) 05/01/18 08:30 Ur Leukocyte Esterase Trace (NEGATIVE) 05/01/18 08:30 Urine WBC (Auto) 5 /hpf (3-5) 05/01/18 08:30 Urine RBC (Auto) 4 /hpf (0-3) 05/01/18 08:30 Ur Epithelial Cells Moderate /HPF (FEW) 05/01/18 08:30 Hyaline Casts 3 /lpf 05/01/18 08:30 Urine Mucus Moderate 05/01/18 08:30 RPR Titer Nonreactive (NONREACTIVE) 05/01/18 07:30 HIV 1&2 Antibody Screen Negative 05/01/18 07:30 HIV P24 Antigen Negative 05/01/18 07:30 lab noted Assessment: 05/02/18 10:44 withdrawal sx ensure supplement Plan: continue detox
[2018-05-02] MEDS ORDERED: CYCLOBENZAPRINE HCL 10 MG TABLET (FP) PO PRN (10:56)
[2018-05-02] MEDS: PRENATAL VITAMINS W/ FOLIC ACID TABLET (FP) PO SCH (11:31)
[2018-05-02] MEDS: FERROUS SO4 325 MG TABLET (FP) PO SCH (11:31)
[2018-05-02] MEDS: MINERAL OIL/PETROLAT/WATER TOPICAL CREAM 113 GM JAR TP SCH ×2 (11:32→22:08)
--- NOTE | 2018-05-02 19:32 | EKG ---
Test Reason : Blood Pressure : / mmHG Vent. Rate : 093 BPM Atrial Rate : 093 BPM P-R Int : 116 ms QRS Dur : 084 ms QT Int : 364 ms P-R-T Axes : 068 068 026 degrees QTc Int : 452 ms NORMAL SINUS RHYTHM WITH SINUS ARRHYTHMIA NORMAL ECG WHEN COMPARED WITH ECG OF 20-MAR-2018 14:23, NO SIGNIFICANT CHANGE WAS FOUND Confirmed by SMITHA BRODY MD ([id number]) on 05/02/2018 7:32:23 PM Referred By: Confirmed By:SMITHA BRODY MD
[2018-05-02] MEDS: chlordiazePOXIDE 5 MG CAPSULE PO SCH (22:08)
[2018-05-02] MEDS: THIAMINE HCL 100 MG TABLET (FP) PO SCH (22:08)
[2018-05-03] MEDS: chlordiazePOXIDE 5 MG CAPSULE PO SCH ×3 (05:51→18:10)
--- NOTE | 2018-05-03 10:01 | PN ---
B[facility] Progress Note (SOAP) Subjective: feeling better no tremor less sweat no gi distress social with peers in day room and hallway Objective: 05/03/18 10:03 Vital Signs Temperature 96.4 F L 05/03/18 09:24 Pulse Rate 93 H 05/03/18 09:24 Respiratory Rate 16 05/03/18 09:24 Blood Pressure 106/76 05/03/18 09:24 O2 Sat by Pulse Oximetry (%) Laboratory Last Values WBC 4.7 K/mm3 (4.0-10.0) 05/01/18 07:30 RBC 3.39 M/mm3 (3.60-5.2) L 05/01/18 07:30 Hgb 9.4 GM/dL (10.7-15.3) L 05/01/18 07:30 Hct 29.5 % (32.4-45.2) L 05/01/18 07:30 MCV 87.1 fl (80-96) 05/01/18 07:30 MCH 27.6 pg (25.7-33.7) 05/01/18 07:30 MCHC 31.7 g/dl (32.0-36.0) L 05/01/18 07:30 RDW 16.0 % (11.6-15.6) H 05/01/18 07:30 Plt Count 404 K/MM3 (134-434) D 05/01/18 07:30 MPV 7.4 fl (7.5-11.1) L D 05/01/18 07:30 Sodium 139 mmol/L (136-145) 05/01/18 07:30 Potassium 3.8 mmol/L (3.5-5.1) 05/01/18 07:30 Chloride 102 mmol/L (98-107) 05/01/18 07:30 Carbon Dioxide 29 mmol/L (21-32) 05/01/18 07:30 Anion Gap 8 MMOL/L (8-16) 05/01/18 07:30 BUN 15 mg/dL (7-18) 05/01/18 07:30 Creatinine 0.7 mg/dL (0.55-1.3) 05/01/18 07:30 Creat Clearance w eGFR > 60 (>60) 05/01/18 07:30 Random Glucose 105 mg/dL (74-106) 05/01/18 07:30 Calcium 8.9 mg/dL (8.5-10.1) 05/01/18 07:30 Total Bilirubin 0.6 mg/dL (0.2-1) 05/01/18 07:30 AST 27 U/L (15-37) 05/01/18 07:30 ALT 24 U/L (13-61) 05/01/18 07:30 Alkaline Phosphatase 62 U/L (45-117) 05/01/18 07:30 Total Protein 8.1 g/dl (6.4-8.2) 05/01/18 07:30 Albumin 3.8 g/dl (3.4-5.0) 05/01/18 07:30 Urine Color Yellow 05/01/18 08:30 Urine Appearance Cloudy 05/01/18 08:30 Urine pH 5.0 (5.0-8.0) 05/01/18 08:30 Ur Specific [place] 1.020 (1.010-1.035) 05/01/18 08:30 Urine Protein Negative (NEGATIVE) 05/01/18 08:30 Urine Glucose (UA) Negative (NEGATIVE) 05/01/18 08:30 Urine Ketones Negative (NEGATIVE) 05/01/18 08:30 Urine Blood Negative (NEGATIVE) 05/01/18 08:30 Urine Nitrite Negative (NEGATIVE) 05/01/18 08:30 Urine Bilirubin Negative (<2.0 mg/dL) 05/01/18 08:30 Urine Urobilinogen Negative mg/dL (0.2-1.0) 05/01/18 08:30 Ur Leukocyte Esterase Trace (NEGATIVE) 05/01/18 08:30 Urine WBC (Auto) 5 /hpf (3-5) 05/01/18 08:30 Urine RBC (Auto) 4 /hpf (0-3) 05/01/18 08:30 Ur Epithelial Cells Moderate /HPF (FEW) 05/01/18 08:30 Hyaline Casts 3 /lpf 05/01/18 08:30 Urine Mucus Moderate 05/01/18 08:30 RPR Titer Nonreactive (NONREACTIVE) 05/01/18 07:30 HIV 1&2 Antibody Screen Negative 05/01/18 07:30 HIV P24 Antigen Negative 05/01/18 07:30 lab noted Assessment: 05/03/18 10:03 mild withdrawal sx Plan: medically supervised detox
[2018-05-03] MEDS: PRENATAL VITAMINS W/ FOLIC ACID TABLET (FP) PO SCH (10:33)
[2018-05-03] MEDS: FERROUS SO4 325 MG TABLET (FP) PO SCH (10:34)
[2018-05-03] MEDS: MINERAL OIL/PETROLAT/WATER TOPICAL CREAM 113 GM JAR TP SCH ×2 (10:35→22:12)
[2018-05-03 21:37] VITALS: PULSE 85
[2018-05-03] MEDS: THIAMINE HCL 100 MG TABLET (FP) PO SCH (22:11)
[2018-05-03] MEDS: chlordiazePOXIDE HCL 10 MG CAPSULE PO SCH (22:11)
[2018-05-04] MEDS: chlordiazePOXIDE HCL 10 MG CAPSULE PO SCH ×2 (05:22→11:19)
[2018-05-04 06:31] VITALS: BP 108/70; TEMP 97
[2018-05-04] MEDS: FERROUS SO4 325 MG TABLET (FP) PO SCH (11:18)
[2018-05-04] MEDS: MINERAL OIL/PETROLAT/WATER TOPICAL CREAM 113 GM JAR TP SCH (11:18)
[2018-05-04] MEDS: PRENATAL VITAMINS W/ FOLIC ACID TABLET (FP) PO SCH (11:19)
--- NOTE | 2018-05-04 14:17 | DS ---
[facility] Detox Discharge Summary Admission Date: 04/30/18 Discharge Date: 05/04/18 - History Present History: Alcohol Dependence Additional Comments: 48 years old female admitted on 04/30/18 for alcohol withdrawal sx completed detox regimen tolerated well denies alcohol withdrawal sx alert oriented x 3 no acute distress after[facility] - Physical Exam Results Vital Signs: Vital Signs Temperature 97 F L 05/04/18 06:30 Pulse Rate 85 05/04/18 06:30 Respiratory Rate 18 05/04/18 06:30 Blood Pressure 108/70 05/04/18 06:30 O2 Sat by Pulse Oximetry (%) Pertinent Admission Physical Exam Findings: alcohol withdrawal sx Vital Signs Temperature 97 F L 05/04/18 06:30 Pulse Rate 85 05/04/18 06:30 Respiratory Rate 18 05/04/18 06:30 Blood Pressure 108/70 05/04/18 06:30 O2 Sat by Pulse Oximetry (%) Laboratory Last Values WBC 4.7 K/mm3 (4.0-10.0) 05/01/18 07:30 RBC 3.39 M/mm3 (3.60-5.2) L 05/01/18 07:30 Hgb 9.4 GM/dL (10.7-15.3) L 05/01/18 07:30 Hct 29.5 % (32.4-45.2) L 05/01/18 07:30 MCV 87.1 fl (80-96) 05/01/18 07:30 MCH 27.6 pg (25.7-33.7) 05/01/18 07:30 MCHC 31.7 g/dl (32.0-36.0) L 05/01/18 07:30 RDW 16.0 % (11.6-15.6) H 05/01/18 07:30 Plt Count 404 K/MM3 (134-434) D 05/01/18 07:30 MPV 7.4 fl (7.5-11.1) L D 05/01/18 07:30 Sodium 139 mmol/L (136-145) 05/01/18 07:30 Potassium 3.8 mmol/L (3.5-5.1) 05/01/18 07:30 Chloride 102 mmol/L (98-107) 05/01/18 07:30 Carbon Dioxide 29 mmol/L (21-32) 05/01/18 07:30 Anion Gap 8 MMOL/L (8-16) 05/01/18 07:30 BUN 15 mg/dL (7-18) 05/01/18 07:30 Creatinine 0.7 mg/dL (0.55-1.3) 05/01/18 07:30 Creat Clearance w eGFR > 60 (>60) 05/01/18 07:30 Random Glucose 105 mg/dL (74-106) 05/01/18 07:30 Calcium 8.9 mg/dL (8.5-10.1) 05/01/18 07:30 Total Bilirubin 0.6 mg/dL (0.2-1) 05/01/18 07:30 AST 27 U/L (15-37) 05/01/18 07:30 ALT 24 U/L (13-61) 05/01/18 07:30 Alkaline Phosphatase 62 U/L (45-117) 05/01/18 07:30 Total Protein 8.1 g/dl (6.4-8.2) 05/01/18 07:30 Albumin 3.8 g/dl (3.4-5.0) 05/01/18 07:30 Urine Color Yellow 05/01/18 08:30 Urine Appearance Cloudy 05/01/18 08:30 Urine pH 5.0 (5.0-8.0) 05/01/18 08:30 Ur Specific [place] 1.020 (1.010-1.035) 05/01/18 08:30 Urine Protein Negative (NEGATIVE) 05/01/18 08:30 Urine Glucose (UA) Negative (NEGATIVE) 05/01/18 08:30 Urine Ketones Negative (NEGATIVE) 05/01/18 08:30 Urine Blood Negative (NEGATIVE) 05/01/18 08:30 Urine Nitrite Negative (NEGATIVE) 05/01/18 08:30 Urine Bilirubin Negative (<2.0 mg/dL) 05/01/18 08:30 Urine Urobilinogen Negative mg/dL (0.2-1.0) 05/01/18 08:30 Ur Leukocyte Esterase Trace (NEGATIVE) 05/01/18 08:30 Urine WBC (Auto) 5 /hpf (3-5) 05/01/18 08:30 Urine RBC (Auto) 4 /hpf (0-3) 05/01/18 08:30 Ur Epithelial Cells Moderate /HPF (FEW) 05/01/18 08:30 Hyaline Casts 3 /lpf 05/01/18 08:30 Urine Mucus Moderate 05/01/18 08:30 RPR Titer Nonreactive (NONREACTIVE) 05/01/18 07:30 HIV 1&2 Antibody Screen Negative 05/01/18 07:30 HIV P24 Antigen Negative 05/01/18 07:30 lab noted - Treatment Hospital Course: Detox Protocol Followed, Detoxed Safely, Responded well, Discharged Condition Good, Rehab Referral Accepted Patient has Accepted a Rehab Referral to: [facility] - Medication Discharge Medications: Ambulatory Orders Ferrous Sulfate 325 mg PO DAILY 03/20/18 Multivitamin [Multiple Vitamins] 1 each PO DAILY 03/20/18 - Diagnosis (1) Alcohol dependence with uncomplicated withdrawal Status: Acute (2) Anemia Status: Chronic Qualifiers: Anemia type: iron deficiency Iron deficiency anemia type: unspecified iron deficiency Qualified Code(s): D50.9 - Iron deficiency anemia, unspecified (3) Weight loss Status: Acute - AMA Did Patient Leave Against Medical Advice: No
== END 2018-05-04 11:25 | disposition home or self-care (01) | DRG 775 ==
LOC: YASAS 12:42 → Y6N 22:20
PROC: HZ2ZZZZ Detoxification Services for Substance Abuse Treatment (ICD-10-PCS; principal; 2018-04-30)
DX: F10.230 Alcohol dependence with withdrawal, uncomplicated (principal); F32.9 Major depressive disorder, single episode, unspecified; D50.9 Iron deficiency anemia, unspecified; L98.8 Other specified disorders of the skin and subcutaneous tissue; G40.909 Epilepsy, unspecified, not intractable, without status epilepticus; E86.0 Dehydration
CPT/HCPCS: 36415; 80053; 81003; 81015; 85027; 86593; 87389; 93005; 93010

== ENCOUNTER 2018-06-29 13:17 | Inpatient (IN) | payer BC ==
--- NOTE | 2018-06-29 15:31 | HP ---
CIWA Score Nausea/Vomitin-No Nausea/No Vomiting Muscle Tremors: None Anxiety: 4-Mod. Anxious/Guarded Agitation: 1-Slight > Activity Paroxysmal Sweats: No Perspiration Orientation: 1-Uncertain about Date Tacttile Disturbances: 0-None Auditory Disturbances: 0-None Visual Disturbances: 3-Moderate Sensitivity Headache: 0-None Present CIWA-Ar Total Score: 9 - Admission Criteria OASAS Guidelines: Admission for Medically Managed Detox: Requires at least one of the followin. CIWA greater than 12 2. Seizures within the past 24 hours 3. Delirium tremens within the past 24 hours 4. Hallucinations within the past 24 hours 5. Acute intervention needed for co occurring medical disorder 6. Acute intervention needed for co occurring psychiatric disorder 7. Severe withdrawal that cannot be handled at a lower level of care (continued vomiting, continued diarrhea, abnormal vital signs) requiring intravenous medication and/or fluids 8. Admission ROS S - HPI Allergies/Adverse Reactions: Allergies Allergy/AdvReac Type Severity Reaction Status Date / Time Fish Containing Products Allergy Verified 06/29/18 14:39 No Known Drug Allergies Allergy Verified 06/29/18 16:19 History of Present Illness: patient here requesting detox from ETOH use , reports 3-4 bottles vodka /day , latest use today , current brittany 0.147 " I drink all day " , reports tremors if not drinking , denies seizures , denies falls , denies blackouts , first age of use 32 , pior detox March 2018 in [place] , denies periods of sobriety except during prior detox . Patient referred by GURMEET cocaine : 5 bags /day denies IVDU tobacco : denies denies other illicits PMHx : anemia , fall [place] 2 years ago w/ laceration to face . PSHx : denies PSych : denies ( see below for discrepancy ) Meds : denies LMP 06/10/18 , 2 children 24 , 26 SHx : lives alone , on SSI for MH issues Exam Limitations: Clinical Condition, Intoxication - Ebola screening Have you traveled outside of the country in the last 21 days: No Have you had contact with anyone from an Ebola affected area: No Do you have a fever: No - Review of Systems Constitutional: See HPI EENT: reports: See HPI Respiratory: reports: No Symptoms reported Cardiac: reports: No Symptoms Reported GI: reports: No Symptoms Reported : reports: No Symptoms Reported Musculoskeletal: reports: No Symptoms Reported Neuro: reports: No Symptoms reported Endocrine: reports: No Symptoms Reported Hematology: reports: Anemia Psychiatric: reports: Orientated x3, Anxious Patient History - Patient Medical History Hx Anemia: Yes (Ferrous Sulfate) Hx Asthma: No Hx Chronic Obstructive Pulmonary Disease (COPD): No Hx Cancer: No Hx Cardiac Disorders: No Hx Congestive Heart Failure: No Hx Hypertension: No Hx Hypercholesterolemia: No Hx Pacemaker: No HX Cerebrovascular Accident: No Hx Seizures: No (DENIES AT THIS TIME) Hx Dementia: No Hx Diabetes: No Hx Gastrointestinal Disorders: No Hx Liver Disease: No Hx Genitourinary Disorders: No Hx Sexually Transmitted Disorders: No Hx Renal Disease (ESRD): No Hx Thyroid Disease: No Hx Human Immunodeficiency Virus (HIV): No (last 01/10/17) Hx Hepatitis C: No Hx Depression: No Hx Suicide Attempt: No (Denies suicidal ideation at this time) Hx Bipolar Disorder: Yes Hx Schizophrenia: No - Patient Surgical History Past Surgical History: No Hx Neurologic Surgery: No Hx Cataract Extraction: No Hx Cardiac Surgery: No Hx Lung Surgery: No Hx Breast Surgery: No Hx Breast Biopsy: No Hx Abdominal Surgery: No Hx Appendectomy: No Hx Cholecystectomy: No Hx Genitourinary Surgery: No Hx Section: No Hx Orthopedic Surgery: No Anesthesia Reaction: No - PPD History Date: 01/17/18 Results: NEGATIVE - Reproductive History Last Menstrual Period: 06/10/18 Patient : No - Smoking Cessation Smoking history: Never smoked Have you smoked in the past 12 months: No Hx Chewing Tobacco Use: No - Substances Abused Alcohol Route: Oral Frequency: Daily Amount used: 4 PINTS OF VODKA Age of first use: 32 Date of Last Use: 06/29/18 Cocaine Route: Smoking Frequency: Daily Amount used: 5 BAGS Age of first use: 43 Date of Last Use: 06/28/18 Family Disease History - Family Disease History Family Disease History: Other: Father (alcohol ), Mother (living - ), Brother (two - healthy), Daughter (two -alcohol) Admission Physical Exam BHS - Physical General Appearance: Yes: Moderate Distress, Tremorous, Anxious HEENTM: Yes: EOMI, Hearing grossly Normal, Normocephalic, Normal Voice Respiratory: Yes: Chest Non-Tender, Lungs Clear, Normal Breath Sounds Breast: Yes: Breast Exam Deferred Cardiology: Yes: Regular Rhythm, Regular Rate, S1, S2, Tachycardia Abdominal: Yes: Normal Bowel Sounds, Flat Genitourinary: Yes: Within Normal Limits Back: Yes: Normal Inspection Musculoskeletal: Yes: full range of Motion, Gait Steady Extremities: Yes: Normal Capillary Refill, Normal Inspection, Tremors Neurological: Yes: Motor Strength 5/5, Normal Mood/Affect Integumentary: Yes: Normal Color, Dry, Warm, Other (many tattoos) - Addiitonal Findings: patient found to have bottle of liquor in her pants pocket which fell out when she moved on the exam table. nursing staff made aware and removed contraband from patient. - Diagnostic (1) Cocaine dependence Current Visit: Yes Status: Chronic Qualifiers: Substance use status: uncomplicated Qualified Code(s): F14.20 - Cocaine dependence, uncomplicated (2) Alcohol dependence with uncomplicated withdrawal Current Visit: No Status: Acute BHS Breath Alcohol Content Breath Alcohol Content: 0.002
[2018-06-29] MEDS ORDERED: IBUPROFEN 400 MG TABLET (FP) PO PRN (15:39)
[2018-06-29] MEDS ORDERED: MAGNESIUM HYDROX 2400MG/30ML ORAL SUSPENSION 30 ML CUP PO PRN (15:39)
[2018-06-29] MEDS ORDERED: MAGNESIUM CITRATE 300 ML BOTTLE PO PRN (15:39)
[2018-06-29] MEDS ORDERED: MENTHOL/PHENOL 1 EACH UD MM PRN (15:39)
[2018-06-29] MEDS ORDERED: LOPERAMIDE HCL 2 MG CAPSULE PO PRN (15:39)
[2018-06-29] MEDS ORDERED: guaiFENesin/D-METHORPHAN HB 10 ML UNIT-DOSE CUPS PO PRN (15:39)
[2018-06-29] MEDS ORDERED: chlordiazePOXIDE HCL 25 MG CAPSULE PO PRN (15:39)
[2018-06-29] MEDS ORDERED: P-EPHED 60MG/TRIPROLIDI 2.5MG TABLET PO PRN (15:39)
[2018-06-29] MEDS ORDERED: MAG HYDROX/AL HYDROX/SIMETH 30 ML UNIT-DOSE CUP PO PRN (15:39)
[2018-06-29] MEDS ORDERED: ACETAMINOPHEN 325 MG TABLET (FP) PO PRN (15:39)
[2018-06-29 16:03] VITALS: BMI 22.6
[2018-06-29] MEDS ORDERED: MELATONIN 5 MG TABLETS PO PRN (22:00)
[2018-06-29] MEDS: chlordiazePOXIDE HCL 25 MG CAPSULE PO SCH (22:28)
[2018-06-29] MEDS: THIAMINE HCL 100 MG TABLET (FP) PO SCH (22:28)
[2018-06-30] MEDS: chlordiazePOXIDE HCL 25 MG CAPSULE PO SCH ×3 (06:10→18:02)
[2018-06-30] MEDS ORDERED: NICOTINE POLACRILEX 2 MG GUM BUC PRN (09:54)
[2018-06-30] MEDS ORDERED: NICOTINE 7 MG/24 HOURS TOPICAL PATCH TD SCH (10:00)
[2018-06-30] MEDS ORDERED: PRENATAL VITAMINS W/ FOLIC ACID TABLET (FP) PO SCH (10:00)
[2018-06-30] MEDS ORDERED: FLU VACCINE QUAD 60 MCG/0.5 ML (MDV 18-19) IM ONE (12:00)
--- NOTE | 2018-06-30 15:42 | PN ---
BHS CIWA - CIWA Score Nausea/Vomitin-No Nausea/No Vomiting Muscle Tremors: 2 Anxiety: 3 Agitation: 3 Paroxysmal Sweats: 2 Orientation: 0-Oriented Tacttile Disturbances: 0-None Auditory Disturbances: 0-None Visual Disturbances: 0-None Headache: 0-None Present CIWA-Ar Total Score: 10 BHS Progress Note (SOAP) Subjective: PATIENT C/O SHAKES, ANXIETY AND RESTLESSNESS. Objective: 06/30/18 15:40 Vital Signs Temperature 96.8 F L 06/30/18 14:29 Pulse Rate 101 H 06/30/18 14:29 Respiratory Rate 16 06/30/18 14:29 Blood Pressure 100/55 L 06/30/18 14:29 O2 Sat by Pulse Oximetry (%) PE: ALERT AND ORIENTED X 3 SKIN WARM AND DRY CAR S1S2 RESP CTA BL EXT MILD TREMORS, AMB AD IAN +RESTLESSNESS, ANXIETY Assessment: 06/30/18 15:41 WITHDRAWAL SX Plan: CONTINUE DETOX LABS REORDERED FOR THE AM ENCOURAGE FLUIDS ENSURE ADDED TO DIET CONTINUE TO MONITOR
[2018-06-30] MEDS ORDERED: chlordiazePOXIDE HCL 25 MG CAPSULE PO ONE (18:45)
--- NOTE | 2018-06-30 18:51 | PN ---
[facility] Progress Note Note: Patient requesting to leave AMA. Gait is unsteady. Explained to patient that, for safety reasons, she should stay until morning. Patient agrees to stay overnight but will not take any Librium after tonights dose, so that she will be steady enough to leave. Librium doses adjusted. Patient is aware that leaving in the morning is against medical advice.
[2018-06-30] MEDS: THIAMINE HCL 100 MG TABLET (FP) PO SCH (22:30)
[2018-06-30] MEDS ORDERED: chlordiazePOXIDE HCL 25 MG CAPSULE PO SCH (23:00)
[2018-07-01] MEDS ORDERED: chlordiazePOXIDE 5 MG CAPSULE PO ONE (06:40)
[2018-07-01 06:55] VITALS: BP 127/87; PULSE 99; TEMP 97.9
--- NOTE | 2018-07-01 10:12 | PN ---
S Progress Note Note: pt refused to complete detox and did not want to continue to take any medication , her vital signs nor have blood drawn. pt states she is feeling better and wants to sign out. Pt signed out AMA.
--- NOTE | 2018-07-01 10:22 | DS ---
[facility] Detox Discharge Summary Admission Date: 06/29/18 - History Present History: Alcohol Dependence, Opioid Dependence - Physical Exam Results Vital Signs: Vital Signs Temperature 97.9 F 07/01/18 06:55 Pulse Rate 99 H 07/01/18 06:55 Respiratory Rate 20 07/01/18 06:55 Blood Pressure 127/87 07/01/18 06:55 O2 Sat by Pulse Oximetry (%) - Treatment Hospital Course: Discharged Condition Good - Medication Discharge Medications: Ambulatory Orders NK [No Known Home Medication] 06/29/18 - Diagnosis (1) Alcohol dependence with uncomplicated withdrawal Status: Chronic (2) Heroin abuse Status: Acute (3) Weight loss Status: Acute (4) Cocaine dependence Status: Chronic Qualifiers: Substance use status: uncomplicated Qualified Code(s): F14.20 - Cocaine dependence, uncomplicated (5) Depression Status: Chronic Qualifiers: Depression Type: unspecified Qualified Code(s): F32.9 - Major depressive disorder, single episode, unspecified (6) Opioid dependence with withdrawal Status: Chronic (7) Seizure Status: Chronic - AMA Did Patient Leave Against Medical Advice: Yes
[2018-07-01] MEDS ORDERED: chlordiazePOXIDE 5 MG CAPSULE PO SCH (23:00)
[2018-07-02] MEDS ORDERED: chlordiazePOXIDE HCL 10 MG CAPSULE PO SCH (23:00)
== END 2018-07-01 09:15 | disposition left against medical advice (07) | DRG 770 ==
LOC: YASAS 13:17 → Y6N 15:54
PROC: HZ2ZZZZ Detoxification Services for Substance Abuse Treatment (ICD-10-PCS; principal; 2018-06-29)
DX: F10.230 Alcohol dependence with withdrawal, uncomplicated (principal); F11.10 Opioid abuse, uncomplicated; F14.20 Cocaine dependence, uncomplicated; F32.9 Major depressive disorder, single episode, unspecified; D64.9 Anemia, unspecified; R00.0 Tachycardia, unspecified; Z86.69 Personal history of other diseases of the nervous system and sense organs

== ENCOUNTER 2018-11-24 09:38 | Inpatient (IN) | payer BC ==
[2018-11-24 10:31] VITALS: BMI 22.6
--- NOTE | 2018-11-24 11:16 | HP ---
CIWA Score Nausea/Vomitin Muscle Tremors: None Anxiety: 3 Agitation: 0-Normal Activity Paroxysmal Sweats: 2 Orientation: 0-Oriented Tacttile Disturbances: 1-Very Mild Itch/Numbness Auditory Disturbances: 0-None Visual Disturbances: 2-Mild Sensitivity Headache: 3-Moderate CIWA-Ar Total Score: 14 - Admission Criteria OASAS Guidelines: Admission for Medically Managed Detox: Requires at least one of the followin. CIWA greater than 12 2. Seizures within the past 24 hours 3. Delirium tremens within the past 24 hours 4. Hallucinations within the past 24 hours 5. Acute intervention needed for co occurring medical disorder 6. Acute intervention needed for co occurring psychiatric disorder 7. Severe withdrawal that cannot be handled at a lower level of care (continued vomiting, continued diarrhea, abnormal vital signs) requiring intravenous medication and/or fluids 8. Patient presents the following: CIWA greater than 12 Admission Criteria Met: Admission criteria met Admission ROS [facility] Chief Complaint: alcohol withdrawal symptoms Allergies/Adverse Reactions: Allergies Allergy/AdvReac Type Severity Reaction Status Date / Time Fish Containing Products Allergy Verified 11/24/18 10:27 No Known Drug Allergies Allergy Verified 11/24/18 10:27 History of Present Illness: Patient is a 48 yo female with hx withh cocaine and alcohol dependence presents today for inpatient alcohol detox d/t withdrawal symptoms. Utox positive for BZO , MTD, TOM, reports no recent hospital admission, last detox [facility] June 2018. Reports she wanted 3extaking [address]. PMHX: Anemia Psych: bipolar Denies seizures, reports remote hx of ETIH blackouts with last episode two years ago Denies SI/ HI Exam Limitations: No Limitations - Ebola screening Have you traveled outside of the country in the last 21 days: No (N) Have you had contact with anyone from an Ebola affected area: No Do you have a fever: No - Review of Systems Constitutional: Loss of Appetite, Weakness, Other (weight gain 16 lbs in past two months) EENT: reports: No Symptoms Reported Respiratory: reports: Cough (x 2 days) Cardiac: reports: No Symptoms Reported GI: reports: Nausea, Poor Appetite, Poor Fluid Intake, Vomiting Musculoskeletal: reports: No Symptoms Reported Integumentary: reports: Dryness Neuro: reports: Headache Endocrine: reports: Increased Thirst Hematology: reports: No Symptoms Reported Psychiatric: reports: Anxious Other Systems: Reviewed and Negative Patient History - Patient Medical History Hx Anemia: Yes (Ferrous Sulfate) Hx Asthma: No Hx Chronic Obstructive Pulmonary Disease (COPD): No Hx Cancer: No Hx Cardiac Disorders: No Hx Congestive Heart Failure: No Hx Hypertension: No Hx Hypercholesterolemia: No Hx Pacemaker: No HX Cerebrovascular Accident: No Hx Seizures: No (DENIES AT THIS TIME) Hx Dementia: No Hx Diabetes: No Hx Gastrointestinal Disorders: No Hx Liver Disease: No Hx Genitourinary Disorders: No Hx Sexually Transmitted Disorders: No Hx Renal Disease (ESRD): No Hx Thyroid Disease: No Hx Human Immunodeficiency Virus (HIV): No (last 01/10/17) Hx Hepatitis C: No Hx Depression: No Hx Suicide Attempt: No (Denies suicidal ideation at this time) Hx Bipolar Disorder: Yes Hx Schizophrenia: No - Patient Surgical History Past Surgical History: No Hx Neurologic Surgery: No Hx Cataract Extraction: No Hx Cardiac Surgery: No Hx Lung Surgery: No Hx Breast Surgery: No Hx Breast Biopsy: No Hx Abdominal Surgery: No Hx Appendectomy: No Hx Cholecystectomy: No Hx Genitourinary Surgery: No Hx Section: No Hx Orthopedic Surgery: No Anesthesia Reaction: No - PPD History Previous Implant?: No Date: 01/17/18 Results: NEGATIVE PPD to be Administered?: No - Reproductive History Last Menstrual Period: 06/10/18 - Smoking Cessation Smoking history: Never smoked Have you smoked in the past 12 months: No Hx Chewing Tobacco Use: No Initiated information on smoking cessation: No 'Breaking Loose' booklet given: 11/24/18 - Substance & Tx. History Hx Alcohol Use: Yes Hx Substance Use: Yes Substance Use Type: Alcohol, Cocaine Hx Substance Use Treatment: Yes ([facility] detox June 2018) - Substances abused Alcohol Substance route: Oral Frequency: Daily Amount used: 3 PINT VODKA , one x 6 PACKS BEER x 24 oz Age of first use: 42 Date of last use: 11/24/18 Family Disease History - Family Disease History Family Disease History: Other: Father (alcohol ), Mother (living - ), Brother (two - healthy), Daughter (two -alcohol) Admission Physical Exam BHS - Vital Signs Vital Signs: Vital Signs - 24 hr 11/24/18 10:23 Temperature 96.7 F L Pulse Rate 87 Respiratory 19 Rate Blood Pressure 118/79 - Physical General Appearance: Yes: Disheveled, Thin, Sweating, Anxious HEENTM: Yes: EOMI, Hearing grossly Normal, Normal ENT Inspection, Normocephalic , Normal Voice, ROSALBA, Pharynx Normal, Tm's normal, Other (poor dentition, cheilitis) Respiratory: Yes: Chest Non-Tender, Lungs Clear, Normal Breath Sounds, No Respiratory Distress, No Accessory Muscle Use Neck: Yes: Within Normal Limits Breast: Yes: Breast Exam Deferred Cardiology: Yes: Regular Rhythm, Regular Rate Abdominal: Yes: Normal Bowel Sounds, Non Tender, Flat, Soft Genitourinary: Yes: Within Normal Limits Back: Yes: Normal Inspection Musculoskeletal: Yes: full range of Motion, Gait Steady, Pelvis Stable Extremities: Yes: Normal Capillary Refill, Normal Inspection, Normal Range of Motion, Non-Tender Neurological: Yes: flatwork washer II-XII NML intact, Fully Oriented, Alert, Motor Strength 5/5, Depressed Affect Integumentary: Yes: Normal Color, Warm, Diaphoresis, Other (scars on left wrist , reports while in nursing home use to cut her self) Lymphatic: Yes: Within Normal Limits - Diagnostic (1) Alcohol dependence with uncomplicated withdrawal Current Visit: Yes Status: Chronic (2) Cocaine dependence Current Visit: Yes Status: Chronic Qualifiers: Substance use status: uncomplicated Qualified Code(s): F14.20 - Cocaine dependence, uncomplicated Cleared for Admission [facility] - Detox or Rehab [facility] Level of Care: Medically Managed Detox Regimen/Protocol: Librium Breathalyzer - Breathalyzer Breathalyzer: 0.002 Urine Drug Screen - Test Device Lot number: [id number] Expiration date: 08/19/20 - Control Is test valid?: Yes - Results Drug screen NEGATIVE: No Urine drug screen results: TOM-Cocaine, MTD-Methadone, BZO-Benzodiazepines Inpatient Rehab Admission - Rehab Decision to Admit Inpatient rehab admission?: No
[2018-11-24] MEDS ORDERED: BISMUTH SUBSALICYLATE 524 MG/30 ML UD PO PRN (11:23)
[2018-11-24] MEDS ORDERED: MAGNESIUM CITRATE 300 ML BOTTLE PO PRN (11:23)
[2018-11-24] MEDS ORDERED: MAG HYDROX/AL HYDROX/SIMETH 30 ML UNIT-DOSE CUP PO PRN (11:23)
[2018-11-24] MEDS ORDERED: hydrOXYzine PAMOATE 25 MG CAPSULE (FP) PO PRN (11:23)
[2018-11-24] MEDS ORDERED: MENTHOL/PHENOL 1 EACH UD MM PRN (11:23)
[2018-11-24] MEDS ORDERED: MELATONIN 5 MG TABLETS PO PRN (11:23)
[2018-11-24] MEDS ORDERED: ACETAMINOPHEN 325 MG TABLET (FP) PO PRN ×2 (11:23)
[2018-11-24] MEDS ORDERED: METHOCARBAMOL 500 MG TABLET PO PRN (11:23)
[2018-11-24] MEDS ORDERED: chlordiazePOXIDE HCL 25 MG CAPSULE PO PRN (11:23)
[2018-11-24] MEDS ORDERED: IBUPROFEN 400 MG TABLET (FP) PO PRN (11:23)
[2018-11-24] MEDS ORDERED: MAGNESIUM HYDROX 2400MG/30ML ORAL SUSPENSION 30 ML CUP PO PRN (11:23)
[2018-11-24] MEDS ORDERED: BISMUTH SUBSALICYLATE 262 MG/15 ML BTL PO PRN (11:39)
[2018-11-24 15:02] LABS: HEMATOCRIT 28.6 % (32.4-45.2); HEMOGLOBIN 9.1 GM/dL (10.7-15.3); MCH 25.1 pg (25.7-33.7); MCHC 31.6 g/dl (32.0-36.0); MEAN CELL VOLUME 79.3 fl (80-96); MEAN PLT VOLUME 8.5 fl (7.5-11.1); PLATELET COUNT 325 K/MM3 (134-434); RBC 3.61 M/mm3 (3.60-5.2); RDW 16.6 % (11.6-15.6); WHITE BLOOD COUNT 5.6 K/mm3 (4.0-10.0)
[2018-11-24 15:13] LABS: EPI CELLS 10.1 /HPF (0-5/HPF); HYALINE CASTS 14 /lpf (0-8); URINE APPEARANCE CLOUDY; URINE BACTERIA 311.7 /hpf (NEGATIVE); URINE BILIRUBIN NEGATIVE (NEGATIVE); URINE COLOR YELLOW; URINE GLUCOSE (UA) NEGATIVE (NEGATIVE); URINE KETONE NEGATIVE (NEGATIVE); URINE LEUK ESTERASE 1+ (NEGATIVE); URINE NITRITE NEGATIVE (NEGATIVE); URINE PROTEIN NEGATIVE (NEGATIVE); URINE UROBILINOGEN 0.2 mg/dL (0.2-1.0); URINE WBC 6 /hpf (0-5)
[2018-11-24 15:17] LABS: ALBUMIN 3.9 g/dl (3.4-5.0); BILIRUBIN,TOTAL 0.2 mg/dL (0.2-1); CALCIUM 8.9 mg/dL (8.5-10.1); CREATININE 0.7 mg/dL (0.55-1.3); TOT PROT 8.5 g/dl (6.4-8.2)
[2018-11-24 15:51] LABS: URINE RBC 3.2 /hpf (0-4)
[2018-11-24] MEDS: chlordiazePOXIDE HCL 25 MG CAPSULE PO SCH ×2 (20:40→23:57)
[2018-11-24] MEDS: THIAMINE HCL 100 MG TABLET (FP) PO SCH (23:57)
[2018-11-25] MEDS: chlordiazePOXIDE HCL 25 MG CAPSULE PO SCH ×5 (06:50→22:31)
[2018-11-25] MEDS: PRENATAL VITAMINS W/ FOLIC ACID TABLET (FP) PO SCH (11:08)
[2018-11-25] MEDS ORDERED: ONDANSETRON *ODT* 4 MG TABLET SL PRN (11:54)
--- NOTE | 2018-11-25 11:54 | PN ---
[facility] CIWA - CIWA Score Nausea/Vomitin-Mild Nausea/No Vomiting Muscle Tremors: 3 Anxiety: 3 Agitation: 4-Moderately Restless Paroxysmal Sweats: 3 Orientation: 0-Oriented Tacttile Disturbances: 0-None Auditory Disturbances: 0-None Visual Disturbances: 0-None Headache: 0-None Present CIWA-Ar Total Score: 14 S Progress Note (SOAP) Subjective: nausea irritable agitation interrupted sleep Objective: 11/25/18 11:51 Vital Signs Temperature 97.7 F 11/25/18 09:38 Pulse Rate 96 H 11/25/18 09:38 Respiratory Rate 18 11/25/18 09:38 Blood Pressure 105/52 L 11/25/18 09:38 O2 Sat by Pulse Oximetry (%) Laboratory Tests 11/24/18 11/24/18 11/24/18 10:55 11:30 11:30 WBC 5.6 RBC 3.61 Hgb 9.1 L Hct 28.6 L MCV 79.3 L MCH 25.1 L MCHC 31.6 L RDW 16.6 H Plt Count 325 MPV 8.5 D Sodium Potassium Chloride Carbon Dioxide Anion Gap BUN Creatinine Est GFR (CKD-EPI)AfAm Est GFR (CKD-EPI)NonAf Random Glucose Calcium Total Bilirubin AST ALT Alkaline Phosphatase Total Protein Albumin Urine Color Urine Appearance Urine pH Ur Specific [place] Urine Protein Urine Glucose (UA) Urine Ketones Urine Blood Urine Nitrite Urine Bilirubin Urine Urobilinogen Ur Leukocyte Esterase Urine WBC (Auto) Urine RBC (Auto) Urine Casts (Auto) U Pathogenic Cast Auto U Epithel Cells (Auto) Urine Bacteria (Auto) POC Urine HCG, Qual Negative RPR Titer Nonreactive 11/24/18 11/24/18 11:30 12:10 WBC RBC Hgb Hct MCV MCH MCHC RDW Plt Count MPV Sodium 140 Potassium 4.0 Chloride 103 Carbon Dioxide 30 Anion Gap 7 L BUN 17 Creatinine 0.7 Est GFR (CKD-EPI)AfAm 120.43 Est GFR (CKD-EPI)NonAf 103.90 Random Glucose 54 L Calcium 8.9 Total Bilirubin 0.2 AST 24 ALT 19 Alkaline Phosphatase 61 Total Protein 8.5 H Albumin 3.9 Urine Color Yellow Urine Appearance Cloudy Urine pH 5.0 Ur Specific [place] 1.018 Urine Protein Negative Urine Glucose (UA) Negative Urine Ketones Negative Urine Blood 3+ H Urine Nitrite Negative Urine Bilirubin Negative Urine Urobilinogen 0.2 Ur Leukocyte Esterase 1+ H Urine WBC (Auto) 6 Urine RBC (Auto) 3.2 Urine Casts (Auto) 14 U Pathogenic Cast Auto None seen U Epithel Cells (Auto) 10.1 Urine Bacteria (Auto) 311.7 POC Urine HCG, Qual RPR Titer labs noted mildly low H:H aaox3 ambulating no acute distress pt denies having a UTI. pt is currently on her menstruation Assessment: 11/25/18 11:52 withdrawal sx Plan: continue detox increase fluids iron supplement ordered repeat labs zofran prn
[2018-11-25] MEDS: FERROUS SO4 325 MG TABLET (FP) PO SCH (18:33)
[2018-11-25] MEDS: THIAMINE HCL 100 MG TABLET (FP) PO SCH (22:31)
[2018-11-26] MEDS: chlordiazePOXIDE HCL 25 MG CAPSULE PO SCH ×2 (07:31→10:47)
[2018-11-26] MEDS: FERROUS SO4 325 MG TABLET (FP) PO SCH ×2 (07:34→11:21)
[2018-11-26] MEDS: PRENATAL VITAMINS W/ FOLIC ACID TABLET (FP) PO SCH (10:47)
--- NOTE | 2018-11-26 11:53 | PN ---
[facility] CIWA - CIWA Score Nausea/Vomitin-Mild Nausea/No Vomiting Muscle Tremors: 3 Anxiety: 3 Agitation: 3 Paroxysmal Sweats: 2 Orientation: 0-Oriented Tacttile Disturbances: 0-None Auditory Disturbances: 0-None Visual Disturbances: 0-None Headache: 0-None Present CIWA-Ar Total Score: 12 S Progress Note (SOAP) Subjective: feeling better little nausea sweats tired Objective: 11/26/18 11:51 Vital Signs Temperature 97.0 F L 11/26/18 06:00 Pulse Rate 66 11/26/18 06:00 Respiratory Rate 16 11/26/18 06:00 Blood Pressure 99/56 L 11/26/18 06:00 O2 Sat by Pulse Oximetry (%) Laboratory Tests 11/24/18 11/24/18 11/24/18 10:55 11:30 11:30 WBC 5.6 RBC 3.61 Hgb 9.1 L Hct 28.6 L MCV 79.3 L MCH 25.1 L MCHC 31.6 L RDW 16.6 H Plt Count 325 MPV 8.5 D Sodium Potassium Chloride Carbon Dioxide Anion Gap BUN Creatinine Est GFR (CKD-EPI)AfAm Est GFR (CKD-EPI)NonAf Random Glucose Calcium Total Bilirubin AST ALT Alkaline Phosphatase Total Protein Albumin Urine Color Urine Appearance Urine pH Ur Specific [place] Urine Protein Urine Glucose (UA) Urine Ketones Urine Blood Urine Nitrite Urine Bilirubin Urine Urobilinogen Ur Leukocyte Esterase Urine WBC (Auto) Urine RBC (Auto) Urine Casts (Auto) U Pathogenic Cast Auto U Epithel Cells (Auto) Urine Bacteria (Auto) POC Urine HCG, Qual Negative RPR Titer Nonreactive 11/24/18 11/24/18 11:30 12:10 WBC RBC Hgb Hct MCV MCH MCHC RDW Plt Count MPV Sodium 140 Potassium 4.0 Chloride 103 Carbon Dioxide 30 Anion Gap 7 L BUN 17 Creatinine 0.7 Est GFR (CKD-EPI)AfAm 120.43 Est GFR (CKD-EPI)NonAf 103.90 Random Glucose 54 L Calcium 8.9 Total Bilirubin 0.2 AST 24 ALT 19 Alkaline Phosphatase 61 Total Protein 8.5 H Albumin 3.9 Urine Color Yellow Urine Appearance Cloudy Urine pH 5.0 Ur Specific [place] 1.018 Urine Protein Negative Urine Glucose (UA) Negative Urine Ketones Negative Urine Blood 3+ H Urine Nitrite Negative Urine Bilirubin Negative Urine Urobilinogen 0.2 Ur Leukocyte Esterase 1+ H Urine WBC (Auto) 6 Urine RBC (Auto) 3.2 Urine Casts (Auto) 14 U Pathogenic Cast Auto None seen U Epithel Cells (Auto) 10.1 Urine Bacteria (Auto) 311.7 POC Urine HCG, Qual RPR Titer aaox3 ambulating no acute distress repeat cbc Assessment: 11/26/18 11:52 withdrawal sx Plan: continue detox increase fluids pending repeated labs
[2018-11-26] MEDS ORDERED: chlordiazePOXIDE HCL 10 MG CAPSULE PO PRN (17:00)
[2018-11-26] MEDS ORDERED: chlordiazePOXIDE HCL 10 MG CAPSULE PO SCH (17:00)
[2018-11-26 17:55] VITALS: BP 101/65; PULSE 75; TEMP 98.2
[2018-11-27] MEDS ORDERED: chlordiazePOXIDE HCL 10 MG CAPSULE PO SCH (17:00)
== END 2018-11-26 17:25 | disposition left against medical advice (07) | DRG 770 ==
LOC: YASAS 09:38 → Y6N 11:30
PROVIDERS: ADMIT Surgery; ATTEND Surgery
PROC: HZ2ZZZZ Detoxification Services for Substance Abuse Treatment (ICD-10-PCS; principal; 2018-11-24)
DX: F10.230 Alcohol dependence with withdrawal, uncomplicated (principal); F14.20 Cocaine dependence, uncomplicated; F13.20 Sedative, hypnotic or anxiolytic dependence, uncomplicated; F11.20 Opioid dependence, uncomplicated; F31.9 Bipolar disorder, unspecified; D64.9 Anemia, unspecified
CPT/HCPCS: 36415; 80053; 81003; 81025; 85027; 86593; Q0162

== ENCOUNTER 2018-12-09 08:13 | Inpatient (IN) | payer BC ==
[2018-12-09 09:13] VITALS: BMI 22.1
--- NOTE | 2018-12-09 09:59 | HP ---
CIWA Score Nausea/Vomitin-Mild Nausea/No Vomiting Muscle Tremors: 1-None Visible, but [place] Anxiety: 4-Mod. Anxious/Guarded Agitation: 4-Moderately Restless Paroxysmal Sweats: No Perspiration Orientation: 0-Oriented Tacttile Disturbances: 0-None Auditory Disturbances: 2-Mild Harshness/Frighten Visual Disturbances: 2-Mild Sensitivity Headache: 3-Moderate CIWA-Ar Total Score: 17 - Admission Criteria OASAS Guidelines: Admission for Medically Managed Detox: Requires at least one of the followin. CIWA greater than 12 2. Seizures within the past 24 hours 3. Delirium tremens within the past 24 hours 4. Hallucinations within the past 24 hours 5. Acute intervention needed for co occurring medical disorder 6. Acute intervention needed for co occurring psychiatric disorder 7. Severe withdrawal that cannot be handled at a lower level of care (continued vomiting, continued diarrhea, abnormal vital signs) requiring intravenous medication and/or fluids 8. Admission ROS [facility] - HPI Allergies/Adverse Reactions: Allergies Allergy/AdvReac Type Severity Reaction Status Date / Time Fish Containing Products Allergy Verified 12/09/18 09:07 No Known Drug Allergies Allergy Verified 12/09/18 09:07 History of Present Illness: patient here requesting detox from ETOH use , reports 5 nips vodka /day , latest use yesterday evening , current brittany 0.0 reports tremors if not drinking , denies seizures , denies falls , denies blackouts , first age of use 32 , prior detox 2 weeks ago left AMA , denies periods of sobriety except during prior detox cocaine : 7-10 bags /day denies IVDU tobacco : denies denies other illicits PMHx : anemia , fall [place] 2 years ago w/ laceration to face . PSHx : denies PSych : denies ( see below for discrepancy ) Meds : denies LMP 06/10/18 , 2 children 24 , 26 SHx : lives alone , on SSI for MH issues travels to / from [place] every few months , reports heavier use of cocaine while in [place] . Exam Limitations: Clinical Condition - Ebola screening Have you traveled outside of the country in the last 21 days: No (N) Have you had contact with anyone from an Ebola affected area: No Do you have a fever: No - Review of Systems Constitutional: No Symptoms Reported EENT: reports: See HPI Respiratory: reports: No Symptoms reported Cardiac: reports: No Symptoms Reported GI: reports: No Symptoms Reported : reports: No Symptoms Reported Musculoskeletal: reports: No Symptoms Reported Integumentary: reports: No Symptoms Reported Neuro: reports: Headache Endocrine: reports: No Symptoms Reported Psychiatric: reports: Orientated x3, Agitated, Anxious Patient History - Patient Medical History Hx Anemia: Yes (Ferrous Sulfate) Hx Asthma: No Hx Chronic Obstructive Pulmonary Disease (COPD): No Hx Cancer: No Hx Cardiac Disorders: No Hx Congestive Heart Failure: No Hx Hypertension: No Hx Hypercholesterolemia: No Hx Pacemaker: No HX Cerebrovascular Accident: No Hx Seizures: No (DENIES AT THIS TIME) Hx Dementia: No Hx Diabetes: No Hx Gastrointestinal Disorders: No Hx Liver Disease: No Hx Genitourinary Disorders: No Hx Sexually Transmitted Disorders: No Hx Renal Disease (ESRD): No Hx Thyroid Disease: No Hx Human Immunodeficiency Virus (HIV): No (last 01/10/17) Hx Hepatitis C: No Hx Depression: No Hx Suicide Attempt: No (Denies suicidal ideation at this time) Hx Bipolar Disorder: Yes Hx Schizophrenia: No - Patient Surgical History Past Surgical History: No Hx Neurologic Surgery: No Hx Cataract Extraction: No Hx Cardiac Surgery: No Hx Lung Surgery: No Hx Breast Surgery: No Hx Breast Biopsy: No Hx Abdominal Surgery: No Hx Appendectomy: No Hx Cholecystectomy: No Hx Genitourinary Surgery: No Hx Section: No Hx Orthopedic Surgery: No Anesthesia Reaction: No - PPD History Date: 01/17/18 Results: NEGATIVE - Reproductive History Last Menstrual Period: 06/10/18 - Smoking Cessation Smoking history: Never smoked Have you smoked in the past 12 months: No Hx Chewing Tobacco Use: No - Substances abused Alcohol Substance route: Oral Frequency: Daily Amount used: 4 PINT VODKA , one x 6 PACKS BEER x 24 oz Age of first use: 38 Date of last use: 12/09/18 Cocaine Substance route: Smoking Frequency: 3-6 times per week Amount used: 5 bags Age of first use: 42 Date of last use: 12/08/18 Family Disease History - Family Disease History Family Disease History: Other: Father (alcohol ), Mother (living - ), Brother (two - healthy), Daughter (two -alcohol) Admission Physical Exam [facility] - Vital Signs Vital Signs: Vital Signs - 24 hr 12/09/18 12/09/18 09:07 09:25 Temperature 96 F L 96 F L Pulse Rate 78 78 Respiratory 17 17 Rate Blood Pressure 114/82 114/82 - Physical General Appearance: Yes: Mild Distress, Thin, Irritable, Anxious HEENTM: Yes: EOMI, Hearing grossly Normal, Normocephalic, Normal Voice Respiratory: Yes: Chest Non-Tender, Lungs Clear, Normal Breath Sounds, No Respiratory Distress, No Accessory Muscle Use Neck: Yes: No masses,lesions,Nodules, Trachea in good position Cardiology: Yes: Regular Rhythm, Regular Rate, S1, S2 Abdominal: Yes: Normal Bowel Sounds, Non Tender, Soft Back: Yes: Normal Inspection Musculoskeletal: Yes: Gait Steady Extremities: Yes: Normal Range of Motion, Non-Tender Neurological: Yes: Alert, Motor Strength 5/5, Depressed Affect Integumentary: Yes: Warm, Other (tattoos and piercings extensive UE scarring from previous self- inflicted injuries) - Diagnostic (1) Alcohol dependence with uncomplicated withdrawal Current Visit: Yes Status: Acute (2) Cocaine dependence Current Visit: Yes Status: Chronic Qualifiers: Substance use status: uncomplicated Qualified Code(s): F14.20 - Cocaine dependence, uncomplicated Breathalyzer - Breathalyzer Breathalyzer: 0 Urine Drug Screen - Test Device Lot number: [id number] Expiration date: 08/19/20 - Control Is test valid?: Yes - Results Drug screen NEGATIVE: No Urine drug screen results: THC-Marijuana, TOM-Cocaine, BZO-Benzodiazepines Inpatient Rehab Admission - Rehab Decision to Admit Inpatient rehab admission?: No
[2018-12-09] MEDS ORDERED: ACETAMINOPHEN 325 MG TABLET (FP) PO PRN ×2 (10:19)
[2018-12-09] MEDS ORDERED: MAG HYDROX/AL HYDROX/SIMETH 30 ML UNIT-DOSE CUP PO PRN (10:19)
[2018-12-09] MEDS ORDERED: hydrOXYzine PAMOATE 25 MG CAPSULE (FP) PO PRN (10:19)
[2018-12-09] MEDS ORDERED: MENTHOL/PHENOL 1 EACH UD MM PRN (10:19)
[2018-12-09] MEDS ORDERED: MAGNESIUM HYDROX 2400MG/30ML ORAL SUSPENSION 30 ML CUP PO PRN (10:19)
[2018-12-09] MEDS ORDERED: diazePAM 5 MG TABLET PO PRN (10:19)
[2018-12-09] MEDS ORDERED: MAGNESIUM CITRATE 300 ML BOTTLE PO PRN (10:19)
[2018-12-09] MEDS ORDERED: BISMUTH SUBSALICYLATE 524 MG/30 ML UD PO PRN (10:19)
[2018-12-09] MEDS ORDERED: MELATONIN 5 MG TABLETS PO PRN (10:19)
[2018-12-09] MEDS ORDERED: IBUPROFEN 400 MG TABLET (FP) PO PRN (10:19)
[2018-12-09] MEDS: diazePAM 5 MG TABLET PO SCH ×2 (15:00→23:40)
[2018-12-09] MEDS: THIAMINE HCL 100 MG TABLET (FP) PO SCH (23:40)
[2018-12-10] MEDS: diazePAM 5 MG TABLET PO SCH ×3 (05:42→22:35)
[2018-12-10] MEDS: PRENATAL VITAMINS W/ FOLIC ACID TABLET (FP) PO SCH (11:24)
--- NOTE | 2018-12-10 12:51 | PN ---
[facility] CIWA - CIWA Score Nausea/Vomitin-No Nausea/No Vomiting Muscle Tremors: 2 Anxiety: 1-Mildly Anxious Agitation: 1-Slight > Activity Paroxysmal Sweats: 1-Minimal Palms Moist Orientation: 0-Oriented Tacttile Disturbances: 0-None Auditory Disturbances: 0-None Visual Disturbances: 0-None Headache: 0-None Present CIWA-Ar Total Score: 5 [facility] Progress Note (SOAP) Subjective: tired feeling better Objective: 12/10/18 12:51 Vital Signs Temperature 96.6 F L 12/10/18 06:00 Pulse Rate 70 12/10/18 06:00 Respiratory Rate 16 12/10/18 06:00 Blood Pressure 98/58 L 12/10/18 06:00 O2 Sat by Pulse Oximetry (%) Laboratory Tests 12/09/18 09:26 POC Urine HCG, Qual Negative rest of labs pending aaox3 ambulating no acute distress Assessment: 12/10/18 12:51 mild withdrawal sx Plan: continue detox increase fluids d/c in am
[2018-12-10] MEDS: THIAMINE HCL 100 MG TABLET (FP) PO SCH (22:35)
[2018-12-11] MEDS ORDERED: diazePAM 5 MG TABLET PO ONE (06:00)
[2018-12-11] MEDS: PRENATAL VITAMINS W/ FOLIC ACID TABLET (FP) PO SCH (09:11)
[2018-12-11 10:00] VITALS: BP 109/66; PULSE 88; TEMP 97.3
--- NOTE | 2018-12-11 13:20 | DS ---
[facility] Detox Discharge Summary Admission Date: 12/09/18 Discharge Date: 12/11/18 - History Present History: Alcohol Dependence, Cocaine Dependence - Physical Exam Results Vital Signs: Vital Signs Temperature 97.3 F L 12/11/18 10:00 Pulse Rate 88 12/11/18 10:00 Respiratory Rate 16 12/11/18 10:00 Blood Pressure 109/66 12/11/18 10:00 O2 Sat by Pulse Oximetry (%) - Treatment Hospital Course: Detox Protocol Followed, Detoxed Safely, Responded well, Discharged Condition Good - Medication Discharge Medications: Ambulatory Orders NK [No Known Home Medication] 06/29/18 - Diagnosis (1) Alcohol dependence Current Visit: Yes Status: Chronic Qualifiers: Substance use status: uncomplicated Qualified Code(s): F10.20 - Alcohol dependence, uncomplicated (2) Cocaine dependence Current Visit: Yes Status: Chronic Qualifiers: Substance use status: uncomplicated Qualified Code(s): F14.20 - Cocaine dependence, uncomplicated - AMA Did Patient Leave Against Medical Advice: No
== END 2018-12-11 13:07 | disposition home or self-care (01) | DRG 774 ==
LOC: YASAS 08:13 → Y6N 10:29
PROVIDERS: ADMIT Surgery; ATTEND Surgery
PROC: HZ2ZZZZ Detoxification Services for Substance Abuse Treatment (ICD-10-PCS; principal; 2018-12-09)
DX: F10.230 Alcohol dependence with withdrawal, uncomplicated (principal); F13.20 Sedative, hypnotic or anxiolytic dependence, uncomplicated; F14.20 Cocaine dependence, uncomplicated; F12.20 Cannabis dependence, uncomplicated; F31.9 Bipolar disorder, unspecified; D64.9 Anemia, unspecified
CPT/HCPCS: 81025

== ENCOUNTER 2019-01-03 08:45 | Inpatient (IN) | payer BC ==
[2019-01-03 09:25] VITALS: BMI 21.9
--- NOTE | 2019-01-03 10:03 | HP ---
CIWA Score Nausea/Vomitin Muscle Tremors: 2 Anxiety: 2 Agitation: 2 Paroxysmal Sweats: 1-Minimal Palms Moist Orientation: 0-Oriented Tacttile Disturbances: 1-Very Mild Itch/Numbness Auditory Disturbances: 1-Very Mild Visual Disturbances: 0-None Headache: 2-Mild CIWA-Ar Total Score: 13 - Admission Criteria OASAS Guidelines: Admission for Medically Managed Detox: Requires at least one of the followin. CIWA greater than 12 2. Seizures within the past 24 hours 3. Delirium tremens within the past 24 hours 4. Hallucinations within the past 24 hours 5. Acute intervention needed for co occurring medical disorder 6. Acute intervention needed for co occurring psychiatric disorder 7. Severe withdrawal that cannot be handled at a lower level of care (continued vomiting, continued diarrhea, abnormal vital signs) requiring intravenous medication and/or fluids 8. Admission ROS [facility] - HPI Chief Complaint: i need help to stop drinking alcohol and cocaine Allergies/Adverse Reactions: Allergies Allergy/AdvReac Type Severity Reaction Status Date / Time Fish Containing Products Allergy Verified 01/03/19 09:19 No Known Drug Allergies Allergy Verified 01/03/19 09:19 History of Present Illness: this 48 years old male with alcohol and cocaine dependence seeking detox, withdrawal symptom, multiple admissions in detox last 12/09/18 to 12/11/18 not completed history of non compliance weight loss longest period of sobriety 5 months plan for rehab after detox bipolar disorder,no med Exam Limitations: No Limitations - Ebola screening Have you traveled outside of the country in the last 21 days: No Have you had contact with anyone from an Ebola affected area: No Do you have a fever: No - Review of Systems Constitutional: Chills, Loss of Appetite, Malaise, Night Sweats, Changes in sleep, Weakness, Unintentional Wgt. Loss EENT: reports: Nose Congestion Respiratory: reports: No Symptoms reported Cardiac: reports: No Symptoms Reported GI: reports: Nausea, Poor Appetite, Abdominal cramping : reports: No Symptoms Reported Musculoskeletal: reports: Back Pain, Muscle Pain Integumentary: reports: Dryness Neuro: reports: Headache, Tremors Endocrine: reports: No Symptoms Reported Hematology: reports: No Symptoms Reported Psychiatric: reports: No Sypmtoms Reported, Judgement Intact, Mood/Affect Appropiate, Orientated x3 Other Systems: Reviewed and Negative Patient History - Patient Medical History Hx Anemia: Yes (no med) Hx Asthma: No Hx Chronic Obstructive Pulmonary Disease (COPD): No Hx Cancer: No Hx Cardiac Disorders: No Hx Congestive Heart Failure: No Hx Hypertension: No Hx Hypercholesterolemia: No Hx Pacemaker: No HX Cerebrovascular Accident: No Hx Seizures: No (DENIES AT THIS TIME) Hx Dementia: No Hx Diabetes: No Hx Gastrointestinal Disorders: No Hx Liver Disease: No Hx Genitourinary Disorders: No Hx Sexually Transmitted Disorders: No Hx Renal Disease (ESRD): No Hx Thyroid Disease: No Hx Human Immunodeficiency Virus (HIV): No (08/10 negative) Hx Hepatitis C: No Hx Depression: No Hx Suicide Attempt: No (Denies suicidal ideation at this time) Hx Bipolar Disorder: Yes Hx Schizophrenia: No Other Medical History: no suicidal,no homicidal - Patient Surgical History Past Surgical History: No Hx Neurologic Surgery: No Hx Cataract Extraction: No Hx Cardiac Surgery: No Hx Lung Surgery: No Hx Breast Surgery: No Hx Breast Biopsy: No Hx Abdominal Surgery: No Hx Appendectomy: No Hx Cholecystectomy: No Hx Genitourinary Surgery: No Hx Section: No Hx Orthopedic Surgery: No Anesthesia Reaction: No - PPD History Previous Implant?: Yes Documented Results: Negative w/proof Implanted On Prior R Admission?: Yes Date: 01/17/18 Results: NEGATIVE 0mm PPD to be Administered?: No - Reproductive History Patient is a Female of Child Bearing Age (11 -55 yrs old): Yes Last Menstrual Period: 12/29/18 Patient : No - Smoking Cessation Smoking history: Never smoked Have you smoked in the past 12 months: No Hx Chewing Tobacco Use: No - Substance & Tx. History Hx Alcohol Use: Yes Hx Substance Use: Yes Substance Use Type: Alcohol, Cocaine Hx Substance Use Treatment: Yes ([facility] 12/09/18 to 12/11/18 not completed) - Substances abused Alcohol Substance route: Oral Frequency: Daily Amount used: 4 PINT VODKA , one x 6 PACKS BEER x 24 oz Age of first use: 38 Date of last use: 01/02/19 Cocaine Substance route: Smoking Frequency: Daily Amount used: 10-12 BAGS 200$ Age of first use: 42 Date of last use: 01/03/19 Family Disease History - Family Disease History Family Disease History: Other: Father (alcohol ), Mother (living - ), Brother (two - healthy), Daughter (two -alcohol) Admission Physical Exam [facility] - Vital Signs Vital Signs: Vital Signs - 24 hr 01/03/19 01/03/19 09:20 09:36 Temperature 97.0 F L 97.0 F L Pulse Rate 83 83 Respiratory 14 14 Rate Blood Pressure 110/82 110/82 - Physical General Appearance: Yes: Moderate Distress, Tremorous, Irritable, Sweating, Anxious HEENTM: Yes: Normal ENT Inspection, [place], Pharynx Normal Respiratory: Yes: Lungs Clear, Normal Breath Sounds, No Respiratory Distress Neck: Yes: Within Normal Limits, Supple, Trachea in good position Breast: Yes: Breast Exam Deferred Cardiology: Yes: Within Normal Limits, Regular Rhythm, Regular Rate, S1, S2 Abdominal: Yes: Within Normal Limits, Normal Bowel Sounds, Non Tender, Flat, Soft Genitourinary: Yes: Within Normal Limits Back: Yes: Muscle Spasm Musculoskeletal: Yes: Back pain, Muscle Pain Extremities: Yes: Tremors Neurological: Yes: lab director II-XII NML intact, Alert, Motor Strength 5/5 Integumentary: Yes: Dry Lymphatic: Yes: Within Normal Limits - Diagnostic (1) Alcohol dependence with uncomplicated withdrawal Current Visit: No Status: Acute (2) Weight loss Current Visit: No Status: Acute (3) Cocaine dependence Current Visit: No Status: Chronic Qualifiers: Substance use status: uncomplicated Qualified Code(s): F14.20 - Cocaine dependence, uncomplicated (4) Bipolar disorder Current Visit: Yes Status: Acute Cleared for Admission [facility] - Detox or Rehab [facility] Level of Care: Medically Managed Detox Regimen/Protocol: Librium Breathalyzer - Breathalyzer Breathalyzer: 0 Urine Drug Screen - Test Device Lot number: [id number] Expiration date: 10/19/20 - Control Is test valid?: Yes - Results Drug screen NEGATIVE: No Urine drug screen results: TOM-Cocaine, BZO-Benzodiazepines Inpatient Rehab Admission - Rehab Decision to Admit Inpatient rehab admission?: No
[2019-01-03] MEDS ORDERED: MELATONIN 5 MG TABLETS PO PRN (10:11)
[2019-01-03] MEDS ORDERED: MAGNESIUM HYDROX 2400MG/30ML ORAL SUSPENSION 30 ML CUP PO PRN (10:11)
[2019-01-03] MEDS ORDERED: MAGNESIUM CITRATE 300 ML BOTTLE PO PRN (10:11)
[2019-01-03] MEDS ORDERED: MENTHOL/PHENOL 1 EACH UD MM PRN (10:11)
[2019-01-03] MEDS ORDERED: IBUPROFEN 400 MG TABLET (FP) PO PRN (10:11)
[2019-01-03] MEDS ORDERED: ACETAMINOPHEN 325 MG TABLET (FP) PO PRN ×2 (10:11)
[2019-01-03] MEDS ORDERED: chlordiazePOXIDE HCL 25 MG CAPSULE PO PRN (10:11)
[2019-01-03] MEDS ORDERED: BISMUTH SUBSALICYLATE 524 MG/30 ML UD PO PRN (10:11)
[2019-01-03] MEDS ORDERED: MAG HYDROX/AL HYDROX/SIMETH 30 ML UNIT-DOSE CUP PO PRN (10:11)
[2019-01-03] MEDS ORDERED: hydrOXYzine PAMOATE 25 MG CAPSULE (FP) PO PRN (10:11)
[2019-01-03] MEDS ORDERED: METHOCARBAMOL 500 MG TABLET PO PRN (10:11)
[2019-01-03] MEDS ORDERED: hydrOXYzine HCL 25 MG TABLET (FP) PO PRN (11:29)
[2019-01-03 14:46] LABS: HEMATOCRIT 26.1 % (32.4-45.2); HEMOGLOBIN 8.5 GM/dL (10.7-15.3); MCH 25.3 pg (25.7-33.7); MCHC 32.4 g/dl (32.0-36.0); MEAN PLT VOLUME 8.9 fl (7.5-11.1); PLATELET COUNT 358 K/MM3 (134-434); RBC 3.34 M/mm3 (3.60-5.2); WHITE BLOOD COUNT 5.1 K/mm3 (4.0-10.0)
[2019-01-03 14:57] LABS: ALBUMIN 3.6 g/dl (3.4-5.0); BILIRUBIN,TOTAL 0.6 mg/dL (0.2-1); BLOOD UREA NITROGEN 23.9 mg/dL (7-18); CALCIUM 8.9 mg/dL (8.5-10.1); CREATININE 0.7 mg/dL (0.55-1.3); POTASSIUM 3.1 mmol/L (3.5-5.1); TOT PROT 7.9 g/dl (6.4-8.2)
[2019-01-03] MEDS: chlordiazePOXIDE HCL 25 MG CAPSULE PO SCH ×2 (17:31→22:28)
[2019-01-03] MEDS: THIAMINE HCL 100 MG TABLET (FP) PO SCH (22:28)
[2019-01-04] MEDS: chlordiazePOXIDE HCL 25 MG CAPSULE PO SCH ×4 (05:30→23:34)
--- NOTE | 2019-01-04 10:16 | CONSULT ---
[facility] Psychiatric Consult - Data Date of interview: 01/04/19 Admission source: [facility] Identifying data: Biology Adjunct Instructor approached patient for psychiatric consultation. Patient stated, " I don't have to see you." Psychiatric consultation refused.
[2019-01-04] MEDS: PRENATAL VITAMINS W/ FOLIC ACID TABLET (FP) PO SCH (10:58)
--- NOTE | 2019-01-04 12:39 | PN ---
S CIWA - CIWA Score Nausea/Vomitin-Mild Nausea/No Vomiting Muscle Tremors: 2 Anxiety: 3 Agitation: 2 Paroxysmal Sweats: 1-Minimal Palms Moist Orientation: 1-Uncertain about Date Tacttile Disturbances: 1-Very Mild Itch/Numbness Auditory Disturbances: 0-None Visual Disturbances: 0-None Headache: 1-Very Mild CIWA-Ar Total Score: 12 [facility] Progress Note (SOAP) Subjective: 48 years old female admitted on 01/03/19 for alcohol withdrawal sx feeling better today less tremor mild anxiety Objective: 01/04/19 12:42 Vital Signs Temperature 96.8 F L 01/04/19 09:14 Pulse Rate 76 01/04/19 09:14 Respiratory Rate 18 01/04/19 09:14 Blood Pressure 108/73 01/04/19 09:14 O2 Sat by Pulse Oximetry (%) Laboratory Last Values WBC 5.1 K/mm3 (4.0-10.0) 01/03/19 10:20 RBC 3.34 M/mm3 (3.60-5.2) L 01/03/19 10:20 Hgb 8.5 GM/dL (10.7-15.3) L 01/03/19 10:20 Hct 26.1 % (32.4-45.2) L 01/03/19 10:20 MCV 78.0 fl (80-96) L 01/03/19 10:20 MCH 25.3 pg (25.7-33.7) L 01/03/19 10:20 MCHC 32.4 g/dl (32.0-36.0) 01/03/19 10:20 RDW 18.0 % (11.6-15.6) H 01/03/19 10:20 Plt Count 358 K/MM3 (134-434) 01/03/19 10:20 MPV 8.9 fl (7.5-11.1) 01/03/19 10:20 Sodium 142 mmol/L (136-145) 01/03/19 10:20 Potassium 3.1 mmol/L (3.5-5.1) L 01/03/19 10:20 Chloride 105 mmol/L (98-107) 01/03/19 10:20 Carbon Dioxide 28 mmol/L (21-32) 01/03/19 10:20 Anion Gap 8 MMOL/L (8-16) 01/03/19 10:20 BUN 23.9 mg/dL (7-18) H 01/03/19 10:20 Creatinine 0.7 mg/dL (0.55-1.3) 01/03/19 10:20 Est GFR (CKD-EPI)AfAm 120.43 01/03/19 10:20 Est GFR (CKD-EPI)NonAf 103.90 01/03/19 10:20 Random Glucose 84 mg/dL (74-106) 01/03/19 10:20 Calcium 8.9 mg/dL (8.5-10.1) 01/03/19 10:20 Total Bilirubin 0.6 mg/dL (0.2-1) 01/03/19 10:20 AST 41 U/L (15-37) H 01/03/19 10:20 ALT 28 U/L (13-61) 01/03/19 10:20 Alkaline Phosphatase 66 U/L (45-117) 01/03/19 10:20 Total Protein 7.9 g/dl (6.4-8.2) 01/03/19 10:20 Albumin 3.6 g/dl (3.4-5.0) 01/03/19 10:20 POC Urine HCG, Qual Negative 01/03/19 10:52 RPR Titer Nonreactive (NONREACTIVE) 01/03/19 10:20 lab noted low K+ K+ supplement repeat K+ level 01/04/19 12:45 Assessment: 01/04/19 12:46 alcohol withdrawal sx Plan: continue alcohol detox
[2019-01-04] MEDS ORDERED: POTASSIUM CHLORIDE ORAL LIQUID 20 MEQ/15 ML PO SCH (12:45)
[2019-01-04] MEDS ORDERED: POTASSIUM CHLORIDE ORAL LIQUID 20 MEQ/15 ML PO ONE (14:03)
[2019-01-04] MEDS: POTASSIUM CHLORIDE ORAL LIQUID 20 MEQ/15 ML PO SCH (23:34)
[2019-01-04] MEDS: THIAMINE HCL 100 MG TABLET (FP) PO SCH (23:34)
[2019-01-05] MEDS: chlordiazePOXIDE HCL 25 MG CAPSULE PO SCH ×4 (06:52→22:54)
[2019-01-05] MEDS: PRENATAL VITAMINS W/ FOLIC ACID TABLET (FP) PO SCH (10:48)
[2019-01-05] MEDS: POTASSIUM CHLORIDE ORAL LIQUID 20 MEQ/15 ML PO SCH (10:48)
--- NOTE | 2019-01-05 16:49 | PN ---
[facility] CIWA - CIWA Score Nausea/Vomitin-Mild Nausea/No Vomiting Muscle Tremors: 2 Anxiety: 3 Agitation: 2 Paroxysmal Sweats: 1-Minimal Palms Moist Orientation: 0-Oriented Tacttile Disturbances: 0-None Auditory Disturbances: 0-None Visual Disturbances: 0-None Headache: 0-None Present CIWA-Ar Total Score: 9 S Progress Note (SOAP) Subjective: in better mood today ambulating on hallway social with staff in the nurse station discuss after with counselor that she would like to go to [facility] Objective: 01/05/19 16:46 Vital Signs Temperature 96.3 F L 01/05/19 13:21 Pulse Rate 90 01/05/19 13:21 Respiratory Rate 20 01/05/19 13:21 Blood Pressure 97/66 01/05/19 13:21 O2 Sat by Pulse Oximetry (%) Laboratory Last Values WBC 5.1 K/mm3 (4.0-10.0) 01/03/19 10:20 RBC 3.34 M/mm3 (3.60-5.2) L 01/03/19 10:20 Hgb 8.5 GM/dL (10.7-15.3) L 01/03/19 10:20 Hct 26.1 % (32.4-45.2) L 01/03/19 10:20 MCV 78.0 fl (80-96) L 01/03/19 10:20 MCH 25.3 pg (25.7-33.7) L 01/03/19 10:20 MCHC 32.4 g/dl (32.0-36.0) 01/03/19 10:20 RDW 18.0 % (11.6-15.6) H 01/03/19 10:20 Plt Count 358 K/MM3 (134-434) 01/03/19 10:20 MPV 8.9 fl (7.5-11.1) 01/03/19 10:20 Sodium 142 mmol/L (136-145) 01/03/19 10:20 Potassium 3.1 mmol/L (3.5-5.1) L 01/03/19 10:20 Chloride 105 mmol/L (98-107) 01/03/19 10:20 Carbon Dioxide 28 mmol/L (21-32) 01/03/19 10:20 Anion Gap 8 MMOL/L (8-16) 01/03/19 10:20 BUN 23.9 mg/dL (7-18) H 01/03/19 10:20 Creatinine 0.7 mg/dL (0.55-1.3) 01/03/19 10:20 Est GFR (CKD-EPI)AfAm 120.43 01/03/19 10:20 Est GFR (CKD-EPI)NonAf 103.90 01/03/19 10:20 Random Glucose 84 mg/dL (74-106) 01/03/19 10:20 Calcium 8.9 mg/dL (8.5-10.1) 01/03/19 10:20 Total Bilirubin 0.6 mg/dL (0.2-1) 01/03/19 10:20 AST 41 U/L (15-37) H 01/03/19 10:20 ALT 28 U/L (13-61) 01/03/19 10:20 Alkaline Phosphatase 66 U/L (45-117) 01/03/19 10:20 Total Protein 7.9 g/dl (6.4-8.2) 01/03/19 10:20 Albumin 3.6 g/dl (3.4-5.0) 01/03/19 10:20 POC Urine HCG, Qual Negative 01/03/19 10:52 RPR Titer Nonreactive (NONREACTIVE) 01/03/19 10:20 lab noted low K+ Assessment: 01/05/19 16:49 alcohol withdrawal sx low K+ Plan: continue alcohol detox K+ 20meq po bid repeat K+ serum level
[2019-01-05] MEDS: POTASSIUM CHLORIDE TABS 20 MEQ TABLET.ER (FP) PO SCH (18:09)
[2019-01-05] MEDS: THIAMINE HCL 100 MG TABLET (FP) PO SCH (22:54)
[2019-01-06] MEDS ORDERED: chlordiazePOXIDE HCL 10 MG CAPSULE PO PRN
[2019-01-06] MEDS: chlordiazePOXIDE HCL 10 MG CAPSULE PO SCH ×4 (05:58→22:58)
--- NOTE | 2019-01-06 10:04 | PN ---
[facility] CIWA - CIWA Score Nausea/Vomitin-No Nausea/No Vomiting Muscle Tremors: 3 Anxiety: 2 Agitation: 2 Paroxysmal Sweats: 1-Minimal Palms Moist Orientation: 0-Oriented Tacttile Disturbances: 0-None Auditory Disturbances: 0-None Visual Disturbances: 0-None Headache: 0-None Present CIWA-Ar Total Score: 8 S Progress Note (SOAP) Subjective: longer eye contact while carry conversation with staff feeling better [facility] patient acknowledges the low K+ and need K+ supplement as well as repeat K+ serum level Objective: 01/06/19 10:08 Vital Signs Temperature 97 F L 01/06/19 06:25 Pulse Rate 84 01/06/19 06:25 Respiratory Rate 16 01/06/19 06:25 Blood Pressure 107/75 01/06/19 06:25 O2 Sat by Pulse Oximetry (%) Laboratory Last Values WBC 5.1 K/mm3 (4.0-10.0) 01/03/19 10:20 RBC 3.34 M/mm3 (3.60-5.2) L 01/03/19 10:20 Hgb 8.5 GM/dL (10.7-15.3) L 01/03/19 10:20 Hct 26.1 % (32.4-45.2) L 01/03/19 10:20 MCV 78.0 fl (80-96) L 01/03/19 10:20 MCH 25.3 pg (25.7-33.7) L 01/03/19 10:20 MCHC 32.4 g/dl (32.0-36.0) 01/03/19 10:20 RDW 18.0 % (11.6-15.6) H 01/03/19 10:20 Plt Count 358 K/MM3 (134-434) 01/03/19 10:20 MPV 8.9 fl (7.5-11.1) 01/03/19 10:20 Sodium 142 mmol/L (136-145) 01/03/19 10:20 Potassium 3.1 mmol/L (3.5-5.1) L 01/03/19 10:20 Chloride 105 mmol/L (98-107) 01/03/19 10:20 Carbon Dioxide 28 mmol/L (21-32) 01/03/19 10:20 Anion Gap 8 MMOL/L (8-16) 01/03/19 10:20 BUN 23.9 mg/dL (7-18) H 01/03/19 10:20 Creatinine 0.7 mg/dL (0.55-1.3) 01/03/19 10:20 Est GFR (CKD-EPI)AfAm 120.43 01/03/19 10:20 Est GFR (CKD-EPI)NonAf 103.90 01/03/19 10:20 Random Glucose 84 mg/dL (74-106) 01/03/19 10:20 Calcium 8.9 mg/dL (8.5-10.1) 01/03/19 10:20 Total Bilirubin 0.6 mg/dL (0.2-1) 01/03/19 10:20 AST 41 U/L (15-37) H 01/03/19 10:20 ALT 28 U/L (13-61) 01/03/19 10:20 Alkaline Phosphatase 66 U/L (45-117) 01/03/19 10:20 Total Protein 7.9 g/dl (6.4-8.2) 01/03/19 10:20 Albumin 3.6 g/dl (3.4-5.0) 01/03/19 10:20 POC Urine HCG, Qual Negative 01/03/19 10:52 RPR Titer Nonreactive (NONREACTIVE) 01/03/19 10:20 lab noted K+ pending Assessment: 01/06/19 10:09 alcohol withdrawal sx 01/06/19 10:10 low K+ Plan: continue alcohol detox repeat K+ pending
[2019-01-06] MEDS: POTASSIUM CHLORIDE TABS 20 MEQ TABLET.ER (FP) PO SCH ×2 (11:05→19:16)
[2019-01-06] MEDS: PRENATAL VITAMINS W/ FOLIC ACID TABLET (FP) PO SCH (11:05)
[2019-01-06] MEDS: THIAMINE HCL 100 MG TABLET (FP) PO SCH (22:58)
[2019-01-07] MEDS ORDERED: chlordiazePOXIDE HCL 10 MG CAPSULE PO SCH (05:00)
[2019-01-07 09:08] VITALS: BP 111/60; PULSE 68; TEMP 98.2
--- NOTE | 2019-01-07 17:12 | PN ---
S CIWA - CIWA Score Nausea/Vomitin-No Nausea/No Vomiting Muscle Tremors: None Anxiety: 4-Mod. Anxious/Guarded Agitation: 2 Paroxysmal Sweats: 1-Minimal Palms Moist Orientation: 0-Oriented Tacttile Disturbances: 1-Very Mild Itch/Numbness Auditory Disturbances: 0-None Visual Disturbances: 0-None Headache: 0-None Present CIWA-Ar Total Score: 8 BHS Progress Note (SOAP) Subjective: Anxious, Restless. Objective: PATIENT A & O X 3, OBSERVED AMBULATING ON UNIT UNASSISTED. IN NO ACUTE DISTRESS. 01/07/19 17:12 Vital Signs Temperature 98.2 F 01/07/19 09:08 Pulse Rate 68 01/07/19 09:08 Respiratory Rate 18 01/07/19 09:08 Blood Pressure 111/60 01/07/19 09:08 O2 Sat by Pulse Oximetry (%) Laboratory Tests 01/03/19 01/03/19 01/03/19 10:20 10:20 10:20 WBC 5.1 RBC 3.34 L Hgb 8.5 L Hct 26.1 L MCV 78.0 L MCH 25.3 L MCHC 32.4 RDW 18.0 H Plt Count 358 MPV 8.9 Sodium 142 Potassium 3.1 L Chloride 105 Carbon Dioxide 28 Anion Gap 8 BUN 23.9 H Creatinine 0.7 Est GFR (CKD-EPI)AfAm 120.43 Est GFR (CKD-EPI)NonAf 103.90 Random Glucose 84 Calcium 8.9 Total Bilirubin 0.6 AST 41 H ALT 28 Alkaline Phosphatase 66 Total Protein 7.9 Albumin 3.6 POC Urine HCG, Qual RPR Titer Nonreactive 01/03/19 01/07/19 10:52 07:00 WBC RBC Hgb Hct MCV MCH MCHC RDW Plt Count MPV Sodium Potassium 4.4 Chloride Carbon Dioxide Anion Gap BUN Creatinine Est GFR (CKD-EPI)AfAm Est GFR (CKD-EPI)NonAf Random Glucose Calcium Total Bilirubin AST ALT Alkaline Phosphatase Total Protein Albumin POC Urine HCG, Qual Negative RPR Titer LABS NOTED. PATIENT LATER LEFT DETOX UNIT AMA. RESULT OF REPEAT K LEVEL NOT AVAILABLE AT THAT TIME. RESULT OF REPEAT K LEVEL LATER NOTED TO BE WITHIN NORMAL RANGE. 01/07/19 17:13 Assessment: 01/07/19 17:13 WITHDRAWAL SYMPTOMS. ANEMIA. Plan: CONTINUE DETOX.
--- NOTE | 2019-01-07 17:21 | DS ---
[facility] Detox Discharge Summary Admission Date: 01/03/19 Discharge Date: 01/07/19 - History Present History: Alcohol Dependence, Cocaine Dependence Additional Comments: DESPITE EFFORTS BY PROJECTION PRINTER AND BY NURSING STAFF TO ADDRESS PATIENT'S MEDICAL NEEDS / CONCERNS, PATIENT DOES NOT WISH TO REMAIN TO COMPLETE DETOX REGIMEN. (DETOX ADMISSION LABORATORY ASSESSMENT INDICATED HYPOKALEMIA; RESULT OF REPEAT K LEVEL NOT AVAILABLE AT TIME IN WHICH PATIENT ELECTED TO LEAVE DETOX UNIT AGAINST MEDICAL ADVICE). RESULT RISKS OF LEAVING DETOX UNIT AGAINST MEDICAL ADVICE AND PRIOR TO COMPLETION OF DETOX REGIMEN EXPLAINED TO PATIENT. PATIENT ADVISED TO GO IMMEDIATELY TO NEAREST ER SHOULD ANY INTOLERABLE WITHDRAWAL / DETOX SYMPTOMS DEVELOP AT ANY TIME. PATIENT ALSO ADVISED TO FOLLOW-UP WITH COMMERCIAL ACCOUNTANT SOON POSSIBLE FOR LOW POTASSIUM LEVEL NOTED ON DETOX ADMISSION LABORATORY ASSESSMENT. PATIENT VERBALIZED UNDERSTANDING OF ALL INFORMATION / RECOMMENDATIONS PRESENTED TO HER PRIOR TO DEPARTURE FROM DETOX UNIT. PATIENT LEFT DETOX UNIT IN STABLE MEDICAL CONDITION. Pertinent Past History: History Of Anemia, Bipolar Disorder, Weight Loss. - Physical Exam Results Vital Signs: Vital Signs Temperature 98.2 F 01/07/19 09:08 Pulse Rate 68 01/07/19 09:08 Respiratory Rate 18 01/07/19 09:08 Blood Pressure 111/60 01/07/19 09:08 O2 Sat by Pulse Oximetry (%) Pertinent Admission Physical Exam Findings: WITHDRAWAL SYMPTOMS. Laboratory Tests 01/03/19 01/03/19 01/03/19 10:20 10:20 10:20 WBC 5.1 RBC 3.34 L Hgb 8.5 L Hct 26.1 L MCV 78.0 L MCH 25.3 L MCHC 32.4 RDW 18.0 H Plt Count 358 MPV 8.9 Sodium 142 Potassium 3.1 L Chloride 105 Carbon Dioxide 28 Anion Gap 8 BUN 23.9 H Creatinine 0.7 Est GFR (CKD-EPI)AfAm 120.43 Est GFR (CKD-EPI)NonAf 103.90 Random Glucose 84 Calcium 8.9 Total Bilirubin 0.6 AST 41 H ALT 28 Alkaline Phosphatase 66 Total Protein 7.9 Albumin 3.6 POC Urine HCG, Qual RPR Titer Nonreactive 01/03/19 01/07/19 10:52 07:00 WBC RBC Hgb Hct MCV MCH MCHC RDW Plt Count MPV Sodium Potassium 4.4 Chloride Carbon Dioxide Anion Gap BUN Creatinine Est GFR (CKD-EPI)AfAm Est GFR (CKD-EPI)NonAf Random Glucose Calcium Total Bilirubin AST ALT Alkaline Phosphatase Total Protein Albumin POC Urine HCG, Qual Negative RPR Titer LABS NOTED. - Treatment Hospital Course: Detox Protocol Followed, Detoxed Safely - Medication Discharge Medications: Ambulatory Orders NK [No Known Home Medication] 06/29/18 - Diagnosis (1) Hypokalemia Status: Acute (2) Alcohol dependence with uncomplicated withdrawal Status: Acute (3) Bipolar disorder Status: Acute Qualifiers: Active/Remission status: remission status unspecified Qualified Code(s): F31.9 - Bipolar disorder, unspecified (4) Weight loss Status: Acute (5) Cocaine dependence Status: Chronic Qualifiers: Substance use status: uncomplicated Qualified Code(s): F14.20 - Cocaine dependence, uncomplicated - AMA Did Patient Leave Against Medical Advice: Yes (PATIENT DID NOT WISH TO REAMIN TO COMPLETE DETOX REGIMEN.)
[2019-01-08] MEDS ORDERED: chlordiazePOXIDE HCL 10 MG CAPSULE PO ONE (05:00)
== END 2019-01-07 09:38 | disposition left against medical advice (07) | DRG 770 ==
LOC: YASAS 08:45 → Y3N 10:23
PROVIDERS: ADMIT Surgery; ATTEND Surgery
PROC: HZ2ZZZZ Detoxification Services for Substance Abuse Treatment (ICD-10-PCS; principal; 2019-01-03)
DX: F10.230 Alcohol dependence with withdrawal, uncomplicated (principal); F14.20 Cocaine dependence, uncomplicated; F31.9 Bipolar disorder, unspecified; F32.9 Major depressive disorder, single episode, unspecified; E87.6 Hypokalemia; R63.4 Abnormal weight loss; Z68.22 Body mass index [BMI] 22.0-22.9, adult; Z86.2 Personal history of diseases of the blood and blood-forming organs and certain disorders involving the immune mechanism
CPT/HCPCS: 36415; 80053; 81025; 84132; 85027; 86593

== ENCOUNTER 2019-01-22 14:24 | Inpatient (IN) | payer BC ==
[2019-01-22 18:53] VITALS: BMI 21.8
--- NOTE | 2019-01-22 21:28 | HP ---
CIWA Score Nausea/Vomitin Muscle Tremors: 4-Moderate,w/Arms Extend Anxiety: 2 Agitation: 2 Paroxysmal Sweats: 2 Orientation: 0-Oriented Tacttile Disturbances: 0-None Auditory Disturbances: 0-None Visual Disturbances: 0-None Headache: 3-Moderate CIWA-Ar Total Score: 16 - Admission Criteria OASAS Guidelines: Admission for Medically Managed Detox: Requires at least one of the followin. CIWA greater than 12 2. Seizures within the past 24 hours 3. Delirium tremens within the past 24 hours 4. Hallucinations within the past 24 hours 5. Acute intervention needed for co occurring medical disorder 6. Acute intervention needed for co occurring psychiatric disorder 7. Severe withdrawal that cannot be handled at a lower level of care (continued vomiting, continued diarrhea, abnormal vital signs) requiring intravenous medication and/or fluids 8. Admission ROS [facility] Chief Complaint: alcohol withdrawal symptoms Allergies/Adverse Reactions: Allergies Allergy/AdvReac Type Severity Reaction Status Date / Time Fish Containing Products Allergy Verified 01/03/19 09:19 No Known Drug Allergies Allergy Verified 01/03/19 09:19 History of Present Illness: 48 years old female with a long history of alcohol dependence is seeking admission to detox. Patient has been in detox multiple times and reports insignificant period of sobriety. She reports history of anemia and depression. Denies suicidal ideation at this time. - Ebola screening Have you traveled outside of the country in the last 21 days: No (N) Have you had contact with anyone from an Ebola affected area: No Do you have a fever: No - Review of Systems Constitutional: Chills, Loss of Appetite, Malaise, Changes in sleep EENT: reports: Nose Congestion Respiratory: reports: No Symptoms reported Cardiac: reports: No Symptoms Reported GI: reports: Nausea, Poor Appetite, Poor Fluid Intake, Abdominal cramping : reports: No Symptoms Reported Musculoskeletal: reports: Back Pain Integumentary: reports: Dryness, Flushing Neuro: reports: Tremors Endocrine: reports: No Symptoms Reported Hematology: reports: No Symptoms Reported Psychiatric: reports: Mood/Affect Appropiate, Orientated x3, Depressed Other Systems: Reviewed and Negative Patient History - Patient Medical History Hx Anemia: Yes (Not on medication) Hx Asthma: No Hx Chronic Obstructive Pulmonary Disease (COPD): No Hx Cancer: No Hx Cardiac Disorders: No Hx Congestive Heart Failure: No Hx Hypertension: No Hx Hypercholesterolemia: No Hx Pacemaker: No HX Cerebrovascular Accident: No Hx Seizures: No (DENIES AT THIS TIME) Hx Dementia: No Hx Diabetes: No Hx Gastrointestinal Disorders: No Hx Liver Disease: No Hx Genitourinary Disorders: No Hx Sexually Transmitted Disorders: No Hx Renal Disease (ESRD): No Hx Thyroid Disease: No Hx Human Immunodeficiency Virus (HIV): No (Negative 2019) Hx Hepatitis C: No Hx Depression: Yes (Not on medication) Hx Suicide Attempt: No (Denies suicidal ideation at this time) Hx Bipolar Disorder: Yes Hx Schizophrenia: No - Patient Surgical History Past Surgical History: No Hx Neurologic Surgery: No Hx Cataract Extraction: No Hx Cardiac Surgery: No Hx Lung Surgery: No Hx Breast Surgery: No Hx Breast Biopsy: No Hx Abdominal Surgery: No Hx Appendectomy: No Hx Cholecystectomy: No Hx Genitourinary Surgery: No Hx Section: No Hx Orthopedic Surgery: No Anesthesia Reaction: No - PPD History Previous Implant?: Yes Documented Results: Negative w/proof Implanted On Prior [facility] Admission?: Yes Date: 01/17/18 Results: NEGATIVE 0mm PPD to be Administered?: No - Reproductive History Patient is a Female of Child Bearing Age (11 -55 yrs old): Yes Last Menstrual Period: 12/29/18 Patient : No - Smoking Cessation Smoking history: Never smoked Have you smoked in the past 12 months: No Hx Chewing Tobacco Use: No Initiated information on smoking cessation: No - Substance & Tx. History Hx Alcohol Use: Yes Substance Use Type: None, Alcohol, Cocaine Hx Substance Use Treatment: Yes ([facility]) - Substances abused Alcohol Substance route: Oral Frequency: Daily Amount used: 4 PINT VODKA , one x 6 PACKS BEER x 24 oz Age of first use: 38 Date of last use: 01/22/19 Cocaine Substance route: Smoking Frequency: Daily Amount used: 10-12 BAGS 200$ Age of first use: 42 Date of last use: 01/22/19 Family Disease History - Family Disease History Family Disease History: Other: Father (alcohol ), Mother (living - ), Brother (two - healthy), Daughter (two -alcohol) Admission Physical Exam BHS - Vital Signs Vital Signs: Vital Signs - 24 hr 01/22/19 18:47 Temperature 97.2 F L Pulse Rate 80 Respiratory 16 Rate Blood Pressure 126/91 - Physical General Appearance: Yes: Moderate Distress, Tremorous, Anxious HEENTM: Yes: Within Normal Limits Respiratory: Yes: Lungs Clear, Normal Breath Sounds, No Respiratory Distress Neck: Yes: Supple Breast: Yes: Breast Exam Deferred Cardiology: Yes: Regular Rhythm, Regular Rate Abdominal: Yes: Normal Bowel Sounds Genitourinary: Yes: Within Normal Limits Back: Yes: Normal Inspection Musculoskeletal: Yes: Back pain Extremities: Yes: Tremors Neurological: Yes: Within Normal Limits Integumentary: Yes: Warm Lymphatic: Yes: Within Normal Limits - Diagnostic (1) Anemia Current Visit: Yes Status: Chronic Qualifiers: Anemia type: iron deficiency (2) Alcohol dependence with uncomplicated withdrawal Current Visit: Yes Status: Acute (3) Depression Current Visit: Yes Status: Chronic Qualifiers: Depression Type: unspecified Qualified Code(s): F32.9 - Major depressive disorder, single episode, unspecified Cleared for Admission S - Detox or Rehab [facility] Level of Care: Medically Managed Detox Regimen/Protocol: Librium Breathalyzer - Breathalyzer Breathalyzer: 0 Urine Drug Screen - Test Device Lot number: [id number] Expiration date: 10/19/20 - Control Is test valid?: Yes - Results Drug screen NEGATIVE: No Urine drug screen results: TOM-Cocaine, BZO-Benzodiazepines Inpatient Rehab Admission - Rehab Decision to Admit Inpatient rehab admission?: No
[2019-01-22] MEDS ORDERED: hydrOXYzine PAMOATE 25 MG CAPSULE (FP) PO PRN (21:37)
[2019-01-22] MEDS ORDERED: ACETAMINOPHEN 325 MG TABLET (FP) PO PRN ×2 (21:37)
[2019-01-22] MEDS ORDERED: BISMUTH SUBSALICYLATE 524 MG/30 ML UD PO PRN (21:37)
[2019-01-22] MEDS ORDERED: MAG HYDROX/AL HYDROX/SIMETH 30 ML UNIT-DOSE CUP PO PRN (21:37)
[2019-01-22] MEDS ORDERED: IBUPROFEN 400 MG TABLET (FP) PO PRN (21:37)
[2019-01-22] MEDS ORDERED: MAGNESIUM CITRATE 300 ML BOTTLE PO PRN (21:37)
[2019-01-22] MEDS ORDERED: MELATONIN 5 MG TABLETS PO PRN (21:37)
[2019-01-22] MEDS ORDERED: chlordiazePOXIDE HCL 25 MG CAPSULE PO PRN (21:37)
[2019-01-22] MEDS ORDERED: MAGNESIUM HYDROX 2400MG/30ML ORAL SUSPENSION 30 ML CUP PO PRN (21:37)
[2019-01-22] MEDS ORDERED: METHOCARBAMOL 500 MG TABLET PO PRN (21:37)
[2019-01-22] MEDS ORDERED: MENTHOL/PHENOL 1 EACH UD MM PRN (21:37)
[2019-01-22] MEDS: chlordiazePOXIDE HCL 25 MG CAPSULE PO SCH (23:22)
[2019-01-22] MEDS: THIAMINE HCL 100 MG TABLET (FP) PO SCH (23:23)
[2019-01-23] MEDS: chlordiazePOXIDE HCL 25 MG CAPSULE PO SCH ×3 (06:51→17:04)
--- NOTE | 2019-01-23 09:17 | EKG ---
Test Reason : Blood Pressure : / mmHG Vent. Rate : 075 BPM Atrial Rate : 075 BPM P-R Int : 112 ms QRS Dur : 090 ms QT Int : 398 ms P-R-T Axes : 041 056 023 degrees QTc Int : 444 ms NORMAL SINUS RHYTHM NORMAL ECG WHEN COMPARED WITH ECG OF 01-MAY-2018 00:09, NO SIGNIFICANT CHANGE WAS FOUND Confirmed by SHIV EGAN MD ([id number]) on 01/23/2019 9:16:59 AM Referred By: QUINCY CHACKO Confirmed By:SHIV EGAN MD
[2019-01-23] MEDS: PRENATAL VITAMINS W/ FOLIC ACID TABLET (FP) PO SCH (11:07)
--- NOTE | 2019-01-23 14:23 | PN ---
S CIWA - CIWA Score Nausea/Vomitin-Mild Nausea/No Vomiting Muscle Tremors: 4-Moderate,w/Arms Extend Anxiety: 3 Agitation: 3 Paroxysmal Sweats: 1-Minimal Palms Moist Orientation: 0-Oriented Tacttile Disturbances: 0-None Auditory Disturbances: 0-None Visual Disturbances: 0-None Headache: 2-Mild CIWA-Ar Total Score: 14 BHS Progress Note (SOAP) Subjective: 48 years old female admitted on 01/22/19 for alcohol withdrawal sx management tired limited conversation with the staff resting on bed most of the day Objective: 01/23/19 14:22 Vital Signs Temperature 97.4 F L 01/23/19 14:08 Pulse Rate 91 H 01/23/19 14:08 Respiratory Rate 18 01/23/19 14:08 Blood Pressure 108/75 01/23/19 14:08 O2 Sat by Pulse Oximetry (%) 01/23/19 14:23 lab see 12/2018 result Assessment: 01/23/19 14:24 alcohol withdrawal sx Plan: continue alcohol detox
[2019-01-23] MEDS: THIAMINE HCL 100 MG TABLET (FP) PO SCH (22:33)
[2019-01-23] MEDS ORDERED: chlordiazePOXIDE HCL 10 MG CAPSULE PO ONE (23:00)
[2019-01-24] MEDS ORDERED: chlordiazePOXIDE 5 MG CAPSULE PO ONE (05:00)
[2019-01-24] MEDS: chlordiazePOXIDE HCL 25 MG CAPSULE PO SCH ×4 (05:28→23:12)
[2019-01-24] MEDS: PRENATAL VITAMINS W/ FOLIC ACID TABLET (FP) PO SCH (10:22)
--- NOTE | 2019-01-24 10:47 | PN ---
S CIWA - CIWA Score Nausea/Vomitin-Mild Nausea/No Vomiting Muscle Tremors: 3 Anxiety: 3 Agitation: 2 Paroxysmal Sweats: 1-Minimal Palms Moist Orientation: 0-Oriented Tacttile Disturbances: 1-Very Mild Itch/Numbness Auditory Disturbances: 0-None Visual Disturbances: 0-None Headache: 2-Mild CIWA-Ar Total Score: 13 BHS Progress Note (SOAP) Subjective: limited conversation with staff stay in room most of the time denies suicidal ideation tremor sweat tired Objective: 01/24/19 10:46 Vital Signs Temperature 97.4 F L 01/23/19 14:08 Pulse Rate 70 01/24/19 06:59 Respiratory Rate 16 01/24/19 06:59 Blood Pressure 85/57 L 01/24/19 06:59 O2 Sat by Pulse Oximetry (%) lab see 12/2018 Assessment: 01/24/19 10:47 alcohol withdrawal sx Plan: continue alcohol detox
[2019-01-24 22:15] VITALS: BP 114/73; PULSE 96; TEMP 97.6
[2019-01-24] MEDS: THIAMINE HCL 100 MG TABLET (FP) PO SCH (23:11)
[2019-01-25] MEDS ORDERED: chlordiazePOXIDE HCL 10 MG CAPSULE PO PRN
[2019-01-25] MEDS ORDERED: chlordiazePOXIDE HCL 10 MG CAPSULE PO SCH (05:00)
--- NOTE | 2019-01-25 09:31 | DS ---
[facility] Detox Discharge Summary Admission Date: 01/22/19 Discharge Date: 01/25/19 - History Present History: Alcohol Dependence Additional Comments: 48 years old female admitted on 01/22/19 for acute alcohol withdrawal sx management doing well with librium detox regimen resting on bed most of the day no complication through out the detox stay patient met with 360A and report feeling better prefers to leave the detox unit patient is alert oriented x 3 speech clearly steady gait denies shortness of breathe no dizziness encourage the patient to follow up with [facility] inpatient alcohol rehab program as well as community support approach Pertinent Past History: patient prefers nutritional food and fluid for alcohol detox not taking libirium multiple dosages current ciwa = 7 - Physical Exam Results Vital Signs: Vital Signs Temperature 97.6 F 01/24/19 22:14 Pulse Rate 96 H 01/24/19 22:14 Respiratory Rate 18 01/25/19 06:30 Blood Pressure 114/73 01/24/19 22:14 O2 Sat by Pulse Oximetry (%) Pertinent Admission Physical Exam Findings: alcohol withdrawal sx Laboratory Last Values POC Urine HCG, Qual Negative 01/22/19 19:17 lab see 12/2018 result encourage to take over the counter iron supplement and oral fluid - Treatment Hospital Course: Detox Protocol Followed, Detoxed Safely, Responded well, Discharged Condition Good, Rehab Referral Accepted Patient has Accepted a Rehab Referral to: [facility] - Medication Discharge Medications: Ambulatory Orders NK [No Known Home Medication] 06/29/18 - Diagnosis (1) Alcohol dependence with uncomplicated withdrawal Status: Acute (2) Weight loss Status: Acute (3) Anemia Status: Chronic Qualifiers: Anemia type: iron deficiency Iron deficiency anemia type: other iron deficiency Qualified Code(s): D50.8 - Other iron deficiency anemias - AMA Did Patient Leave Against Medical Advice: No CIWA Score - CIWA Score Nausea/Vomitin-No Nausea/No Vomiting Muscle Tremors: 2 Anxiety: 2 Agitation: 2 Paroxysmal Sweats: 1-Minimal Palms Moist Orientation: 0-Oriented Tacttile Disturbances: 0-None Auditory Disturbances: 0-None Visual Disturbances: 0-None Headache: 0-None Present CIWA-Ar Total Score: 7
[2019-01-26] MEDS ORDERED: chlordiazePOXIDE HCL 10 MG CAPSULE PO SCH (05:00)
[2019-01-27] MEDS ORDERED: chlordiazePOXIDE HCL 10 MG CAPSULE PO ONE (05:00)
== END 2019-01-25 08:56 | disposition home or self-care (01) | DRG 774 ==
LOC: YASAS 14:24 → Y3N 21:58
PROVIDERS: ADMIT Surgery; ATTEND Surgery
PROC: HZ2ZZZZ Detoxification Services for Substance Abuse Treatment (ICD-10-PCS; principal; 2019-01-22)
DX: F10.230 Alcohol dependence with withdrawal, uncomplicated (principal); F14.20 Cocaine dependence, uncomplicated; D50.8 Other iron deficiency anemias; F32.9 Major depressive disorder, single episode, unspecified; R63.4 Abnormal weight loss; Z68.21 Body mass index [BMI] 21.0-21.9, adult
CPT/HCPCS: 81025; 93005; 93010

== ENCOUNTER 2019-02-12 11:44 | Inpatient (IN) | payer BC ==
[2019-02-12 15:06] VITALS: BMI 21.4
--- NOTE | 2019-02-12 15:52 | HP ---
CIWA Score Nausea/Vomitin Muscle Tremors: 3 Anxiety: 3 Agitation: 2 Paroxysmal Sweats: 2 Orientation: 0-Oriented Tacttile Disturbances: 2-Mild Itch/Numbness/Burn Auditory Disturbances: 0-None Visual Disturbances: 2-Mild Sensitivity Headache: 2-Mild CIWA-Ar Total Score: 19 - Admission Criteria OASAS Guidelines: Admission for Medically Managed Detox: Requires at least one of the followin. CIWA greater than 12 2. Seizures within the past 24 hours 3. Delirium tremens within the past 24 hours 4. Hallucinations within the past 24 hours 5. Acute intervention needed for co occurring medical disorder 6. Acute intervention needed for co occurring psychiatric disorder 7. Severe withdrawal that cannot be handled at a lower level of care (continued vomiting, continued diarrhea, abnormal vital signs) requiring intravenous medication and/or fluids 8. Patient presents the following: CIWA greater than 12 Admission Criteria Met: Admission criteria met Admission ROS [facility] Chief Complaint: I am sick, I am drinking a lot Allergies/Adverse Reactions: Allergies Allergy/AdvReac Type Severity Reaction Status Date / Time Fish Containing Products Allergy Verified 02/12/19 15:00 No Known Drug Allergies Allergy Verified 02/12/19 15:00 History of Present Illness: 48 year old woman who was recently in treatment (01/22) at [facility] presents again for detox. She denies blackouts or seizures related to alcohol. Exam Limitations: No Limitations - Ebola screening Have you traveled outside of the country in the last 21 days: No (N) Have you had contact with anyone from an Ebola affected area: No Have you been sick,other than usual withdrawal symptoms: No Do you have a fever: No - Review of Systems Constitutional: Chills, Loss of Appetite, Changes in sleep, Unintentional Wgt. Loss EENT: reports: Nose Congestion Respiratory: reports: Cough Cardiac: reports: Lightheadedness GI: reports: Vomiting, Abdominal cramping : reports: No Symptoms Reported Musculoskeletal: reports: Back Pain, Muscle Pain, Muscle Weakness Integumentary: reports: Flushing Neuro: reports: Headache, Numbness, Tremors Endocrine: reports: No Symptoms Reported Hematology: reports: Anemia Psychiatric: reports: Depressed Other Systems: Reviewed and Negative Patient History - Patient Medical History Hx Anemia: Yes (Not on medication) Hx Asthma: No Hx Chronic Obstructive Pulmonary Disease (COPD): No Hx Cancer: No Hx Cardiac Disorders: No Hx Congestive Heart Failure: No Hx Hypertension: No Hx Hypercholesterolemia: No Hx Pacemaker: No HX Cerebrovascular Accident: No Hx Seizures: No Hx Dementia: No Hx Diabetes: No Hx Gastrointestinal Disorders: No Hx Liver Disease: No Hx Genitourinary Disorders: No Hx Sexually Transmitted Disorders: No Hx Renal Disease (ESRD): No Hx Thyroid Disease: No Hx Human Immunodeficiency Virus (HIV): No Hx Hepatitis C: No Hx Depression: Yes Hx Suicide Attempt: No Hx Bipolar Disorder: Yes Hx Schizophrenia: No - Patient Surgical History Past Surgical History: No - PPD History Previous Implant?: Yes Documented Results: Negative w/proof Implanted On Prior [facility] Admission?: Yes Date: 01/17/18 Results: NEGATIVE 0mm PPD to be Administered?: No - Reproductive History Patient is a Female of Child Bearing Age (11 -55 yrs old): Yes Last Menstrual Period: 12/29/18 Patient : No - Smoking Cessation Smoking history: Never smoked Have you smoked in the past 12 months: No Hx Chewing Tobacco Use: No - Substances abused Alcohol Substance route: Oral Frequency: Daily Amount used: 4 PINT VODKA , one x 6 PACKS BEER x 24 oz Age of first use: 38 Date of last use: 02/12/19 Cocaine Substance route: Smoking Frequency: Daily Amount used: 10-12 BAGS 200$ Age of first use: 42 Date of last use: 02/12/19 Heroin Substance route: Oral Frequency: Daily Amount used: 3 pints vodka Age of first use: 45 Date of last use: 02/11/19 Family Disease History - Family Disease History Family Disease History: Other: Father (alcohol ), Mother (living ), Brother (two - healthy), Daughter (two -alcohol) Admission Physical Exam BHS - Vital Signs Vital Signs: Vital Signs - 24 hr 02/12/19 15:01 Temperature 98 F Pulse Rate 89 Respiratory 14 Rate Blood Pressure 131/90 - Physical General Appearance: Yes: No Apparent Distress HEENTM: Yes: EOMI, Hearing grossly Normal, Normocephalic, Normal Voice, ROSALBA Respiratory: Yes: Chest Non-Tender, Lungs Clear, Normal Breath Sounds, No Respiratory Distress Neck: Yes: No masses,lesions,Nodules, Supple Breast: Yes: Breast Exam Deferred Cardiology: Yes: Regular Rhythm, Regular Rate Abdominal: Yes: Normal Bowel Sounds, Non Tender, Soft Genitourinary: Yes: Within Normal Limits Back: Yes: Normal Inspection Musculoskeletal: Yes: full range of Motion, Back pain Extremities: Yes: Non-Tender, Tremors Neurological: Yes: medical administrative assistant II-XII NML intact, Fully Oriented, Alert, Normal Mood/ Affect, Normal Response Integumentary: Yes: Normal Color, Clammy Lymphatic: Yes: Within Normal Limits - Diagnostic (1) Alcohol dependence with uncomplicated withdrawal Current Visit: Yes Status: Acute (2) Cocaine dependence Current Visit: Yes Status: Chronic Qualifiers: Substance use status: uncomplicated Qualified Code(s): F14.20 - Cocaine dependence, uncomplicated Cleared for Admission S - Detox or Rehab [facility] Level of Care: Medically Managed Detox Regimen/Protocol: Librium Breathalyzer - Breathalyzer Breathalyzer: 0 Urine Drug Screen - Test Device Lot number: [id number] Expiration date: 11/19/20 - Control Is test valid?: Yes - Results Drug screen NEGATIVE: No Urine drug screen results: TOM-Cocaine, BZO-Benzodiazepines Inpatient Rehab Admission - Rehab Decision to Admit Inpatient rehab admission?: No
[2019-02-12] MEDS ORDERED: MELATONIN 5 MG TABLETS PO PRN (15:59)
[2019-02-12] MEDS ORDERED: METHOCARBAMOL 500 MG TABLET PO PRN (15:59)
[2019-02-12] MEDS ORDERED: MAGNESIUM HYDROX 2400MG/30ML ORAL SUSPENSION 30 ML CUP PO PRN (15:59)
[2019-02-12] MEDS ORDERED: MAGNESIUM CITRATE 300 ML BOTTLE PO PRN (15:59)
[2019-02-12] MEDS ORDERED: ACETAMINOPHEN 325 MG TABLET (FP) PO PRN ×2 (15:59)
[2019-02-12] MEDS ORDERED: hydrOXYzine PAMOATE 25 MG CAPSULE (FP) PO PRN (15:59)
[2019-02-12] MEDS ORDERED: chlordiazePOXIDE HCL 25 MG CAPSULE PO ONE (15:59)
[2019-02-12] MEDS ORDERED: ONDANSETRON *ODT* 4 MG TABLET SL PRN (15:59)
[2019-02-12] MEDS ORDERED: chlordiazePOXIDE HCL 10 MG CAPSULE PO PRN (15:59)
[2019-02-12] MEDS ORDERED: MENTHOL/PHENOL 1 EACH UD MM PRN (15:59)
[2019-02-12] MEDS ORDERED: MAG HYDROX/AL HYDROX/SIMETH 30 ML UNIT-DOSE CUP PO PRN (15:59)
[2019-02-12] MEDS ORDERED: BISMUTH SUBSALICYLATE 524 MG/30 ML UD PO PRN (15:59)
[2019-02-12] MEDS ORDERED: IBUPROFEN 400 MG TABLET (FP) PO PRN (15:59)
[2019-02-12] MEDS: THIAMINE HCL 100 MG TABLET (FP) PO SCH (23:16)
[2019-02-12] MEDS: chlordiazePOXIDE HCL 25 MG CAPSULE PO SCH (23:16)
[2019-02-13] MEDS: chlordiazePOXIDE HCL 25 MG CAPSULE PO SCH ×3 (06:22→23:13)
[2019-02-13] MEDS: PRENATAL VITAMINS W/ FOLIC ACID TABLET (FP) PO SCH (11:17)
--- NOTE | 2019-02-13 16:55 | PN ---
S CIWA - CIWA Score Nausea/Vomitin-Mild Nausea/No Vomiting Muscle Tremors: 4-Moderate,w/Arms Extend Anxiety: 4-Mod. Anxious/Guarded Agitation: 4-Moderately Restless Paroxysmal Sweats: 3 Orientation: 0-Oriented Tacttile Disturbances: 0-None Auditory Disturbances: 0-None Visual Disturbances: 0-None Headache: 0-None Present CIWA-Ar Total Score: 16 BHS Progress Note (SOAP) Subjective: In bed covered with sheets from head to toe, answered to her name in very low tone when typewriter mechanic called her name; shaking her body intermittently and refused to speak with typewriter mechanic. Objective: 02/13/19 16:53 Last Vital Signs Temp Pulse Resp BP Pulse Ox 98.2 F 81 16 100/76 02/13/19 16:42 02/13/19 16:42 02/13/19 16:42 02/13/19 16:42 No admission lab result in chart Assessment: 02/13/19 16:54 Withdrawal sxs Plan: Continue detox Encouraged PO water intake
[2019-02-13] MEDS: THIAMINE HCL 100 MG TABLET (FP) PO SCH (23:13)
[2019-02-14] MEDS: chlordiazePOXIDE 5 MG CAPSULE PO SCH ×4 (05:16→22:38)
--- NOTE | 2019-02-14 10:47 | CONSULT ---
Mary Psychiatric Consult - Data Date of interview: 02/14/19 Psychiatric History: Patient approached by bedside. Told publications writer that she did not want to be seen by psychiatrist
[2019-02-14] MEDS: PRENATAL VITAMINS W/ FOLIC ACID TABLET (FP) PO SCH (10:57)
--- NOTE | 2019-02-14 11:30 | PN ---
S CIWA - CIWA Score Nausea/Vomitin-No Nausea/No Vomiting Muscle Tremors: 3 Anxiety: 3 Agitation: 3 Paroxysmal Sweats: 3 Orientation: 0-Oriented Tacttile Disturbances: 0-None Auditory Disturbances: 0-None Visual Disturbances: 0-None Headache: 0-None Present CIWA-Ar Total Score: 12 BHS Progress Note (SOAP) Subjective: sweats shakes interrupted sleep my feet are very itchy Objective: 02/14/19 11:27 Vital Signs Temperature 97.7 F 02/14/19 09:37 Pulse Rate 75 02/14/19 09:37 Respiratory Rate 17 02/14/19 09:37 Blood Pressure 124/77 02/14/19 09:37 O2 Sat by Pulse Oximetry (%) labs ordered aaox3 ambulating no acute distress Assessment: 02/14/19 11:29 withdrawal sx Plan: continue detox increase fluids labs ordered tinactin cream ordered
[2019-02-14] MEDS: TOLNAFTATE 1% CREAM 15 GM TUBE TP SCH ×2 (12:42→22:35)
[2019-02-14] MEDS: THIAMINE HCL 100 MG TABLET (FP) PO SCH (22:35)
[2019-02-15] MEDS ORDERED: chlordiazePOXIDE HCL 10 MG CAPSULE PO PRN
[2019-02-15] MEDS: chlordiazePOXIDE HCL 10 MG CAPSULE PO SCH ×2 (06:48→14:40)
[2019-02-15] MEDS: PRENATAL VITAMINS W/ FOLIC ACID TABLET (FP) PO SCH (10:11)
[2019-02-15] MEDS: TOLNAFTATE 1% CREAM 15 GM TUBE TP SCH (10:11)
--- NOTE | 2019-02-15 12:31 | PN ---
[facility] CIWA - CIWA Score Nausea/Vomitin-No Nausea/No Vomiting Muscle Tremors: 3 Anxiety: 2 Agitation: 2 Paroxysmal Sweats: 2 Orientation: 0-Oriented Tacttile Disturbances: 0-None Auditory Disturbances: 0-None Visual Disturbances: 0-None Headache: 0-None Present CIWA-Ar Total Score: 9 S Progress Note (SOAP) Subjective: anxiety restless Objective: 02/15/19 12:30 Vital Signs Temperature 97.3 F L 02/15/19 09:41 Pulse Rate 78 02/15/19 09:41 Respiratory Rate 18 02/15/19 09:41 Blood Pressure 102/65 02/15/19 09:41 O2 Sat by Pulse Oximetry (%) aaox3 ambulating no acute distress Assessment: 02/15/19 12:31 mild withdrawals Plan: continue detox increase fluids d/c in am
[2019-02-15 13:36] VITALS: BP 116/66; PULSE 77; TEMP 96.8
--- NOTE | 2019-02-15 17:19 | DS ---
[facility] Detox Discharge Summary Admission Date: 02/12/19 Discharge Date: 02/15/19 - History Pertinent Past History: 48 year old woman admitted for alcohol detox. Was to leave tomorrow- wants to leave today. No complaints. Will f/u PCP - Physical Exam Results Vital Signs: Vital Signs Temperature 96.8 F L 02/15/19 13:35 Pulse Rate 77 02/15/19 13:35 Respiratory Rate 18 02/15/19 13:35 Blood Pressure 116/66 02/15/19 13:35 O2 Sat by Pulse Oximetry (%) - Treatment Hospital Course: Detox Protocol Followed, Detoxed Safely - Medication Discharge Medications: Ambulatory Orders NK [No Known Home Medication] 06/29/18 - AMA Did Patient Leave Against Medical Advice: No
[2019-02-16] MEDS ORDERED: chlordiazePOXIDE HCL 10 MG CAPSULE PO ONE (05:00)
== END 2019-02-15 17:20 | disposition home or self-care (01) | DRG 774 ==
LOC: YASAS 11:44 → Y6N 17:15
PROVIDERS: ADMIT Surgery; ATTEND Surgery
PROC: HZ2ZZZZ Detoxification Services for Substance Abuse Treatment (ICD-10-PCS; principal; 2019-02-12)
DX: F10.230 Alcohol dependence with withdrawal, uncomplicated (principal); F14.20 Cocaine dependence, uncomplicated; Z91.013 Allergy to seafood
CPT/HCPCS: 81025

== ENCOUNTER 2019-03-13 09:12 | Inpatient (IN) | payer BC ==
[2019-03-13 10:14] VITALS: BMI 20.2
--- NOTE | 2019-03-13 10:35 | HP ---
CIWA Score Nausea/Vomitin Muscle Tremors: 4-Moderate,w/Arms Extend Anxiety: 3 Agitation: 2 Paroxysmal Sweats: 2 Orientation: 0-Oriented Tacttile Disturbances: 0-None Auditory Disturbances: 2-Mild Harshness/Frighten Visual Disturbances: 0-None Headache: 3-Moderate CIWA-Ar Total Score: 19 - Admission Criteria OASAS Guidelines: Admission for Medically Managed Detox: Requires at least one of the followin. CIWA greater than 12 2. Seizures within the past 24 hours 3. Delirium tremens within the past 24 hours 4. Hallucinations within the past 24 hours 5. Acute intervention needed for co occurring medical disorder 6. Acute intervention needed for co occurring psychiatric disorder 7. Severe withdrawal that cannot be handled at a lower level of care (continued vomiting, continued diarrhea, abnormal vital signs) requiring intravenous medication and/or fluids 8. Patient presents the following: CIWA greater than 12 Admission Criteria Met: Admission criteria met Admission ROS S - HPI Chief Complaint: IM TIRED OF DOING THIS EVERY DAY Allergies/Adverse Reactions: Allergies Allergy/AdvReac Type Severity Reaction Status Date / Time Fish Containing Products Allergy Verified 03/13/19 10:03 No Known Drug Allergies Allergy Verified 03/13/19 10:03 - Ebola screening Have you traveled outside of the country in the last 21 days: No (N) Have you had contact with anyone from an Ebola affected area: No Do you have a fever: No Patient History - Patient Medical History Hx Anemia: Yes (Not on medication) Hx Asthma: No Hx Chronic Obstructive Pulmonary Disease (COPD): No Hx Cancer: No Hx Cardiac Disorders: No Hx Congestive Heart Failure: No Hx Hypertension: No Hx Hypercholesterolemia: No Hx Pacemaker: No HX Cerebrovascular Accident: No Hx Seizures: No Hx Dementia: No Hx Diabetes: No Hx Gastrointestinal Disorders: No Hx Liver Disease: No Hx Genitourinary Disorders: No Hx Sexually Transmitted Disorders: No Hx Renal Disease (ESRD): No Hx Thyroid Disease: No Hx Human Immunodeficiency Virus (HIV): No Hx Hepatitis C: No Hx Depression: Yes Hx Suicide Attempt: No Hx Bipolar Disorder: Yes (FORMER RISPERDAL) Hx Schizophrenia: No - Patient Surgical History Past Surgical History: No Hx Neurologic Surgery: No Hx Cataract Extraction: No Hx Cardiac Surgery: No Hx Lung Surgery: No Hx Breast Surgery: No Hx Breast Biopsy: No Hx Abdominal Surgery: No Hx Appendectomy: No Hx Cholecystectomy: No Hx Genitourinary Surgery: No Hx Section: No Hx Orthopedic Surgery: No Anesthesia Reaction: No - PPD History Date: 01/17/18 Results: NEGATIVE 0mm - Reproductive History Patient is a Female of Child Bearing Age (11 -55 yrs old): Yes Last Menstrual Period: 12/29/18 - Smoking Cessation Smoking history: Never smoked Have you smoked in the past 12 months: No Hx Chewing Tobacco Use: No - Substances abused Alcohol Substance route: Oral Frequency: Daily Amount used: 4 PINT VODKA , one x 6 PACKS BEER x 24 oz Age of first use: 42 Date of last use: 02/12/19 Cocaine Substance route: Smoking Frequency: Daily Amount used: $100-200 (10-20 bags) Age of first use: 45 Date of last use: 02/12/19 Heroin Substance route: Oral Frequency: No use in 30 days Amount used: 3 pints vodka Age of first use: 45 Date of last use: 02/11/19 Admission Physical Exam [facility] - Vital Signs Vital Signs: Vital Signs - 24 hr 03/13/19 10:05 Temperature 97.4 F L Pulse Rate 84 Respiratory 16 Rate Blood Pressure 120/84 - Physical General Appearance: Yes: Disheveled, Alcohol on Breath, Irritable, Sweating, Anxious HEENTM: Yes: EOMI, Hearing grossly Normal (POOR DENTITION) Respiratory: Yes: Within Normal Limits, Chest Non-Tender, Lungs Clear Neck: Yes: No masses,lesions,Nodules Breast: Yes: Breast Exam Deferred Cardiology: Yes: Regular Rhythm, Regular Rate, S1, S2, Bradycardia Abdominal: Yes: Within Normal Limits, Normal Bowel Sounds, Non Tender Genitourinary: Yes: Within Normal Limits Back: Yes: Within Normal Limits, Normal Inspection Musculoskeletal: Yes: Within Normal Limits, full range of Motion, Gait Steady Extremities: Yes: Within Normal Limits, Normal Capillary Refill, Normal Inspection, Normal Range of Motion Neurological: Yes: topper packer II-XII NML intact, Fully Oriented, Alert, Motor Strength 5/5 Integumentary: Yes: Within Normal Limits - Diagnostic (1) Alcohol dependence with uncomplicated withdrawal Current Visit: Yes Status: Acute (2) Bipolar disorder Current Visit: Yes Status: Chronic Qualifiers: Active/Remission status: remission status unspecified Qualified Code(s): F31.9 - Bipolar disorder, unspecified (3) Alcohol dependence Current Visit: Yes Status: Chronic Qualifiers: Substance use status: uncomplicated Qualified Code(s): F10.20 - Alcohol dependence, uncomplicated (4) Cocaine dependence Current Visit: Yes Status: Chronic Qualifiers: Substance use status: uncomplicated Qualified Code(s): F14.20 - Cocaine dependence, uncomplicated Cleared for Admission [facility] - Detox or Rehab [facility] Level of Care: Medically Supervised Breathalyzer - Breathalyzer Breathalyzer: 0 Urine Drug Screen - Test Device Lot number: [id number] Expiration date: 11/19/20 - Control Is test valid?: Yes - Results Drug screen NEGATIVE: No Urine drug screen results: TOM-Cocaine, BZO-Benzodiazepines Inpatient Rehab Admission - Rehab Decision to Admit Inpatient rehab admission?: No
[2019-03-13] MEDS ORDERED: MELATONIN 5 MG TABLETS PO PRN (10:41)
[2019-03-13] MEDS ORDERED: MAGNESIUM CITRATE 300 ML BOTTLE PO PRN (10:41)
[2019-03-13] MEDS ORDERED: MENTHOL/PHENOL 1 EACH UD MM PRN (10:41)
[2019-03-13] MEDS ORDERED: chlordiazePOXIDE HCL 25 MG CAPSULE PO PRN (10:41)
[2019-03-13] MEDS ORDERED: METHOCARBAMOL 500 MG TABLET PO PRN (10:41)
[2019-03-13] MEDS ORDERED: hydrOXYzine PAMOATE 25 MG CAPSULE (FP) PO PRN (10:41)
[2019-03-13] MEDS ORDERED: IBUPROFEN 400 MG TABLET (FP) PO PRN (10:41)
[2019-03-13] MEDS ORDERED: MAGNESIUM HYDROX 2400MG/30ML ORAL SUSPENSION 30 ML CUP PO PRN (10:41)
[2019-03-13] MEDS ORDERED: MAG HYDROX/AL HYDROX/SIMETH 30 ML UNIT-DOSE CUP PO PRN (10:41)
[2019-03-13] MEDS ORDERED: BISMUTH SUBSALICYLATE 524 MG/30 ML UD PO PRN (10:41)
[2019-03-13] MEDS ORDERED: ACETAMINOPHEN 325 MG TABLET (FP) PO PRN ×2 (10:41)
[2019-03-13] MEDS: NICOTINE 21 MG/24 HOURS TOPICAL PATCH TD SCH (11:39)
[2019-03-13] MEDS: chlordiazePOXIDE HCL 25 MG CAPSULE PO SCH ×3 (11:44→22:40)
[2019-03-13] MEDS: THIAMINE HCL 100 MG TABLET (FP) PO SCH (22:40)
[2019-03-14] MEDS: chlordiazePOXIDE HCL 25 MG CAPSULE PO SCH ×4 (05:46→23:17)
[2019-03-14] MEDS: PRENATAL VITAMINS W/ FOLIC ACID TABLET (FP) PO SCH (10:35)
[2019-03-14] MEDS: NICOTINE 21 MG/24 HOURS TOPICAL PATCH TD SCH (10:37)
[2019-03-14 10:38] LABS: HEMATOCRIT 30.5 % (32.4-45.2); HEMOGLOBIN 9.5 GM/dL (10.7-15.3); MCH 24.4 pg (25.7-33.7); MCHC 31.2 g/dl (32.0-36.0); MEAN CELL VOLUME 78.2 fl (80-96); MEAN PLT VOLUME 9.7 fl (7.5-11.1); PLATELET COUNT 324 K/MM3 (134-434); RDW 22.2 % (11.6-15.6); WHITE BLOOD COUNT 5.3 K/mm3 (4.0-10.0)
[2019-03-14 11:01] LABS: ALBUMIN 3.7 g/dl (3.4-5.0); BILIRUBIN,TOTAL 0.4 mg/dL (0.2-1); BLOOD UREA NITROGEN 17.4 mg/dL (7-18); CALCIUM 9.4 mg/dL (8.5-10.1); CREATININE 0.7 mg/dL (0.55-1.3); POTASSIUM 4.1 mmol/L (3.5-5.1)
--- NOTE | 2019-03-14 11:09 | PN ---
S CIWA - CIWA Score Nausea/Vomitin-Mild Nausea/No Vomiting Muscle Tremors: 1-None Visible, but [place] Anxiety: 2 Agitation: 2 Paroxysmal Sweats: 1-Minimal Palms Moist Orientation: 0-Oriented Tacttile Disturbances: 0-None Auditory Disturbances: 0-None Visual Disturbances: 0-None Headache: 1-Very Mild CIWA-Ar Total Score: 8 BHS Progress Note (SOAP) Subjective: alert,irritable,anxious,interrupted sleep,pain in the body Objective: 03/14/19 11:07 Vital Signs Temperature 97.7 F 03/14/19 10:50 Pulse Rate 98 H 03/14/19 10:50 Respiratory Rate 16 03/14/19 10:50 Blood Pressure 107/77 03/14/19 10:50 O2 Sat by Pulse Oximetry (%) Laboratory Last Values WBC 5.3 K/mm3 (4.0-10.0) 03/14/19 08:30 RBC 3.90 M/mm3 (3.60-5.2) 03/14/19 08:30 Hgb 9.5 GM/dL (10.7-15.3) L 03/14/19 08:30 Hct 30.5 % (32.4-45.2) L D 03/14/19 08:30 MCV 78.2 fl (80-96) L 03/14/19 08:30 MCH 24.4 pg (25.7-33.7) L 03/14/19 08:30 MCHC 31.2 g/dl (32.0-36.0) L 03/14/19 08:30 RDW 22.2 % (11.6-15.6) H 03/14/19 08:30 Plt Count 324 K/MM3 (134-434) 03/14/19 08:30 MPV 9.7 fl (7.5-11.1) 03/14/19 08:30 Sodium 138 mmol/L (136-145) 03/14/19 08:30 Potassium 4.1 mmol/L (3.5-5.1) 03/14/19 08:30 Chloride 101 mmol/L (98-107) 03/14/19 08:30 Carbon Dioxide 29 mmol/L (21-32) 03/14/19 08:30 Anion Gap 8 MMOL/L (8-16) 03/14/19 08:30 BUN 17.4 mg/dL (7-18) 03/14/19 08:30 Creatinine 0.7 mg/dL (0.55-1.3) 03/14/19 08:30 Est GFR (CKD-EPI)AfAm 119.58 03/14/19 08:30 Est GFR (CKD-EPI)NonAf 103.18 03/14/19 08:30 Random Glucose 52 mg/dL (74-106) L 03/14/19 08:30 Calcium 9.4 mg/dL (8.5-10.1) 03/14/19 08:30 Total Bilirubin 0.4 mg/dL (0.2-1) 03/14/19 08:30 AST 32 U/L (15-37) 03/14/19 08:30 ALT 23 U/L (13-61) 03/14/19 08:30 Alkaline Phosphatase 56 U/L (45-117) 03/14/19 08:30 Total Protein 8.0 g/dl (6.4-8.2) 03/14/19 08:30 Albumin 3.7 g/dl (3.4-5.0) 03/14/19 08:30 POC Urine HCG, Qual Negative 03/13/19 10:33 Assessment: 03/14/19 11:08 withdrawal symptom Plan: continue detox librium regimen,anemia will give ferrous sulfate 325 mgs po bid, tinactin cream for tinea pedis
[2019-03-14] MEDS: TOLNAFTATE 1% CREAM 15 GM TUBE TP SCH ×2 (13:00→23:00)
[2019-03-14] MEDS: FERROUS SO4 325 MG TABLET (FP) PO SCH (17:20)
[2019-03-14] MEDS: THIAMINE HCL 100 MG TABLET (FP) PO SCH (23:00)
[2019-03-15] MEDS: chlordiazePOXIDE HCL 25 MG CAPSULE PO SCH ×4 (05:41→22:11)
[2019-03-15] MEDS: FERROUS SO4 325 MG TABLET (FP) PO SCH ×2 (07:49→17:36)
[2019-03-15] MEDS: TOLNAFTATE 1% CREAM 15 GM TUBE TP SCH ×2 (10:11→23:03)
[2019-03-15] MEDS: NICOTINE 21 MG/24 HOURS TOPICAL PATCH TD SCH (10:12)
[2019-03-15] MEDS: PRENATAL VITAMINS W/ FOLIC ACID TABLET (FP) PO SCH (10:30)
[2019-03-15] MEDS ORDERED: MELATONIN 5 MG TABLETS PO PRN (10:33)
[2019-03-15] MEDS ORDERED: ONDANSETRON *ODT* 4 MG TABLET SL PRN (12:32)
--- NOTE | 2019-03-15 14:29 | PN ---
S CIWA - CIWA Score Nausea/Vomitin Muscle Tremors: None Anxiety: 2 Agitation: 2 Paroxysmal Sweats: No Perspiration Orientation: 0-Oriented Tacttile Disturbances: 0-None Auditory Disturbances: 0-None Visual Disturbances: 0-None Headache: 0-None Present CIWA-Ar Total Score: 9 BHS Progress Note (SOAP) Subjective: Nausea, Body Aches, Vomiting, Interrupted Sleep. Objective: PATIENT A & O X 3, OBSERVED AMBULATING ON DETOX UNIT UNASSISTED. IN NO ACUTE DISTRESS. 03/15/19 14:30 Vital Signs Temperature 98.1 F 03/15/19 06:30 Pulse Rate 84 03/15/19 09:33 Respiratory Rate 16 03/15/19 09:33 Blood Pressure 94/66 03/15/19 09:33 O2 Sat by Pulse Oximetry (%) Laboratory Tests 03/13/19 03/14/19 03/14/19 10:33 08:30 08:30 WBC 5.3 RBC 3.90 Hgb 9.5 L Hct 30.5 L D MCV 78.2 L MCH 24.4 L MCHC 31.2 L RDW 22.2 H Plt Count 324 MPV 9.7 Sodium 138 Potassium 4.1 Chloride 101 Carbon Dioxide 29 Anion Gap 8 BUN 17.4 Creatinine 0.7 Est GFR (CKD-EPI)AfAm 119.58 Est GFR (CKD-EPI)NonAf 103.18 POC Glucometer Random Glucose 52 L Calcium 9.4 Total Bilirubin 0.4 AST 32 ALT 23 Alkaline Phosphatase 56 Total Protein 8.0 Albumin 3.7 POC Urine HCG, Qual Negative RPR Titer 03/14/19 03/15/19 08:30 07:44 WBC RBC Hgb Hct MCV MCH MCHC RDW Plt Count MPV Sodium Potassium Chloride Carbon Dioxide Anion Gap BUN Creatinine Est GFR (CKD-EPI)AfAm Est GFR (CKD-EPI)NonAf POC Glucometer 93 Random Glucose Calcium Total Bilirubin AST ALT Alkaline Phosphatase Total Protein Albumin POC Urine HCG, Qual RPR Titer Nonreactive LABS NOTED. PATIENT REPORTED HISTORY OF ANEMIA ON DETOX ADMISSION HISTORY AND PHYSICAL ASSESSMENT. PATIENT HAS BEEN ANEMIC ON PREVIOUS ADMISSIONS. RESULT OF FASTING GLUCOSE LEVEL DRAWN EARLIER THIS AM NOTED (93 - RESULT WITHIN NORMAL RANGE). 03/15/19 14:30 Assessment: 03/15/19 14:32 WITHDRAWAL SYMPTOMS. ANEMIA. Plan: CONTINUE DETOX. CONTINUE FEOSOL PO FOR ANEMIA. CBC TO BE RE-CHECKED TOMORROW AM TO SEE IF ANY CHANGE IN ANEMIA IN COMPARISON TO DETOX ADMISSION LABORATORY ASSESSMENT. PRN RANJAN STARK FOR NAUSEA / VOMITING. NOTE: ON DETOX ADMISSION HISTORY AND PHYSICAL ASSESSMENT REPORT, IT WAS NOTED THAT, PRIOR TO ADMISSION TO DETOX, PATIENT LAST USED BOTH ALCOHOL AND COCAINE ON 02/12/2019. HOWEVER, ACCORDING TO PATIENT WHEN ASKED EARLIER TODAY, SHE REPORTED THAT SHE LAST USED BOTH ALCOHOL AND COCAINE ON THE 03/13/2019 IN THE AM PRIOR TO COMING IN TO [facility] TO BE ADMITTED FOR DETOX.
[2019-03-15] MEDS: THIAMINE HCL 100 MG TABLET (FP) PO SCH (22:12)
[2019-03-16] MEDS ORDERED: chlordiazePOXIDE HCL 10 MG CAPSULE PO PRN
[2019-03-16] MEDS: chlordiazePOXIDE HCL 10 MG CAPSULE PO SCH ×4 (06:01→22:15)
[2019-03-16] MEDS: FERROUS SO4 325 MG TABLET (FP) PO SCH ×2 (07:13→16:39)
--- NOTE | 2019-03-16 10:12 | PN ---
BHS Progress Note Note: pt states that the melatonin 10mg was not working and pt agreed to try 50mg of seroquel for tonight.
[2019-03-16] MEDS: NICOTINE 21 MG/24 HOURS TOPICAL PATCH TD SCH (10:14)
[2019-03-16] MEDS: TOLNAFTATE 1% CREAM 15 GM TUBE TP SCH ×2 (10:14→22:16)
[2019-03-16] MEDS: PRENATAL VITAMINS W/ FOLIC ACID TABLET (FP) PO SCH (10:16)
--- NOTE | 2019-03-16 10:45 | PN ---
[facility] CIWA - CIWA Score Nausea/Vomitin-No Nausea/No Vomiting Muscle Tremors: 1-None Visible, but [place] Anxiety: 2 Agitation: 2 Paroxysmal Sweats: No Perspiration Orientation: 0-Oriented Tacttile Disturbances: 0-None Auditory Disturbances: 0-None Visual Disturbances: 1-Very Mild Sensitivity Headache: 1-Very Mild CIWA-Ar Total Score: 7 S Progress Note (SOAP) Subjective: alert,irritable,anxious,interrupted sleep Objective: 03/16/19 10:45 Vital Signs Temperature 98.2 F 03/16/19 08:46 Pulse Rate 101 H 03/16/19 08:46 Respiratory Rate 18 03/16/19 08:46 Blood Pressure 100/69 03/16/19 08:46 O2 Sat by Pulse Oximetry (%) Assessment: 03/16/19 10:45 withdrawal symptom Plan: continue detox librium regimen,[id number],
[2019-03-16 11:20] LABS: BASO % 1.1 % (0-2.0); EOS % 5.8 % (0-4.5); HEMATOCRIT 28.5 % (32.4-45.2); HEMOGLOBIN 8.9 GM/dL (10.7-15.3); LYMPH % 30.5 % (8-40); MCH 24.6 pg (25.7-33.7); MCHC 31.3 g/dl (32.0-36.0); MEAN CELL VOLUME 78.6 fl (80-96); MONO % 9.9 % (3.8-10.2); NEUT % 52.7 % (42.8-82.8); PLATELET COUNT 261 K/MM3 (134-434); RBC 3.62 M/mm3 (3.60-5.2); RDW 22.3 % (11.6-15.6); WHITE BLOOD COUNT 4.6 K/mm3 (4.0-10.0)
[2019-03-16 13:39] LABS: ANISOCYTOSIS 1+
[2019-03-16] MEDS ORDERED: QUEtiapine FUMARATE 50 MG TABLET PO SCH (22:00)
[2019-03-16] MEDS: THIAMINE HCL 100 MG TABLET (FP) PO SCH (22:15)
[2019-03-17] MEDS ORDERED: chlordiazePOXIDE HCL 10 MG CAPSULE PO SCH (05:00)
[2019-03-17 06:57] VITALS: BP 100/65; PULSE 80; TEMP 97.9
[2019-03-17] MEDS: FERROUS SO4 325 MG TABLET (FP) PO SCH (08:45)
[2019-03-17] MEDS: NICOTINE 21 MG/24 HOURS TOPICAL PATCH TD SCH (10:24)
[2019-03-17] MEDS: PRENATAL VITAMINS W/ FOLIC ACID TABLET (FP) PO SCH (10:24)
[2019-03-17] MEDS: TOLNAFTATE 1% CREAM 15 GM TUBE TP SCH (10:25)
--- NOTE | 2019-03-17 10:28 | DS ---
[facility] Detox Discharge Summary Admission Date: 03/13/19 Discharge Date: 03/17/19 - History Present History: Alcohol Dependence, Opioid Dependence - Physical Exam Results Vital Signs: Vital Signs Temperature 97.9 F 03/17/19 06:57 Pulse Rate 80 03/17/19 06:57 Respiratory Rate 17 03/17/19 06:57 Blood Pressure 100/65 03/17/19 06:57 O2 Sat by Pulse Oximetry (%) Pertinent Admission Physical Exam Findings: pt arrived in [facility] Laboratory Tests 03/13/19 03/14/19 03/14/19 10:33 08:30 08:30 WBC 5.3 RBC 3.90 Hgb 9.5 L Hct 30.5 L D MCV 78.2 L MCH 24.4 L MCHC 31.2 L RDW 22.2 H Plt Count 324 MPV 9.7 Absolute Neuts (auto) Neutrophils % Lymphocytes % Monocytes % Eosinophils % Basophils % Nucleated RBC % Anisocytosis Microcytosis Sodium 138 Potassium 4.1 Chloride 101 Carbon Dioxide 29 Anion Gap 8 BUN 17.4 Creatinine 0.7 Est GFR (CKD-EPI)AfAm 119.58 Est GFR (CKD-EPI)NonAf 103.18 POC Glucometer Random Glucose 52 L Calcium 9.4 Total Bilirubin 0.4 AST 32 ALT 23 Alkaline Phosphatase 56 Total Protein 8.0 Albumin 3.7 POC Urine HCG, Qual Negative RPR Titer 03/14/19 03/15/19 03/16/19 08:30 07:44 07:45 WBC 4.6 RBC 3.62 Hgb 8.9 L Hct 28.5 L MCV 78.6 L MCH 24.6 L MCHC 31.3 L RDW 22.3 H Plt Count 261 MPV 10.0 Absolute Neuts (auto) 2.4 Neutrophils % 52.7 Lymphocytes % 30.5 D Monocytes % 9.9 Eosinophils % 5.8 H Basophils % 1.1 Nucleated RBC % 0 Anisocytosis 1+ Microcytosis 1+ Sodium Potassium Chloride Carbon Dioxide Anion Gap BUN Creatinine Est GFR (CKD-EPI)AfAm Est GFR (CKD-EPI)NonAf POC Glucometer 93 Random Glucose Calcium Total Bilirubin AST ALT Alkaline Phosphatase Total Protein Albumin POC Urine HCG, Qual RPR Titer Nonreactive today pt is aaox3 ambulating no acute distress - Treatment Hospital Course: Detox Protocol Followed, Detoxed Safely, Responded well, Discharged Condition Good, Rehab Referral Accepted Patient has Accepted a Rehab Referral to: pt declined rehab; referral provided - Medication Discharge Medications: Ambulatory Orders NK [No Known Home Medication] 06/29/18 - Diagnosis (1) Alcohol dependence Current Visit: Yes Status: Chronic Qualifiers: Substance use status: uncomplicated Qualified Code(s): F10.20 - Alcohol dependence, uncomplicated (2) Alcohol dependence with uncomplicated withdrawal Current Visit: Yes Status: Chronic (3) Anemia Current Visit: No Status: Chronic Qualifiers: Anemia type: iron deficiency Iron deficiency anemia type: other iron deficiency Qualified Code(s): D50.8 - Other iron deficiency anemias (4) Bipolar disorder Current Visit: Yes Status: Chronic Qualifiers: Active/Remission status: remission status unspecified Qualified Code(s): F31.9 - Bipolar disorder, unspecified (5) Cocaine dependence Current Visit: Yes Status: Chronic Qualifiers: Substance use status: uncomplicated Qualified Code(s): F14.20 - Cocaine dependence, uncomplicated (6) Depression Current Visit: No Status: Chronic Qualifiers: Depression Type: unspecified Qualified Code(s): F32.9 - Major depressive disorder, single episode, unspecified (7) Weight loss Current Visit: Yes Status: Acute - AMA Did Patient Leave Against Medical Advice: No
[2019-03-18] MEDS ORDERED: chlordiazePOXIDE HCL 10 MG CAPSULE PO ONE (05:00)
== END 2019-03-17 10:38 | disposition home or self-care (01) | DRG 774 ==
LOC: YASAS 09:12 → Y6N 11:13
PROVIDERS: ADMIT Surgery; ATTEND Surgery
PROC: HZ2ZZZZ Detoxification Services for Substance Abuse Treatment (ICD-10-PCS; principal; 2019-03-13)
DX: F10.230 Alcohol dependence with withdrawal, uncomplicated (principal); F14.20 Cocaine dependence, uncomplicated; F31.9 Bipolar disorder, unspecified; D50.8 Other iron deficiency anemias; R63.4 Abnormal weight loss; R00.1 Bradycardia, unspecified; Z91.013 Allergy to seafood
CPT/HCPCS: 36415; 80053; 81025; 82962; 85025; 85027; 86593

== ENCOUNTER 2019-04-09 11:31 | Inpatient (IN) | payer BC ==
[2019-04-09 12:42] VITALS: BMI 21.2
--- NOTE | 2019-04-09 16:38 | HP ---
CIWA Score Nausea/Vomitin Muscle Tremors: 3 Anxiety: 1-Mildly Anxious Agitation: 1-Slight > Activity Paroxysmal Sweats: 3 Orientation: 0-Oriented Tacttile Disturbances: 2-Mild Itch/Numbness/Burn Auditory Disturbances: 0-None Visual Disturbances: 0-None Headache: 2-Mild CIWA-Ar Total Score: 15 - Admission Criteria OASAS Guidelines: Admission for Medically Managed Detox: Requires at least one of the followin. CIWA greater than 12 2. Seizures within the past 24 hours 3. Delirium tremens within the past 24 hours 4. Hallucinations within the past 24 hours 5. Acute intervention needed for co occurring medical disorder 6. Acute intervention needed for co occurring psychiatric disorder 7. Severe withdrawal that cannot be handled at a lower level of care (continued vomiting, continued diarrhea, abnormal vital signs) requiring intravenous medication and/or fluids 8. Patient presents the following: CIWA greater than 12 Admission Criteria Met: Admission criteria met Admitting History and Physical - Past Medical History ...LMP: 12/29/18 - Smoking History Smoking history: Never smoked Have you smoked in the past 12 months: No - Alcohol/Substance Use Hx Alcohol Use: Yes Admission ROS [facility] Chief Complaint: "I'm tired, drinking too much" Allergies/Adverse Reactions: Allergies Allergy/AdvReac Type Severity Reaction Status Date / Time Fish Containing Products Allergy Verified 04/09/19 12:32 No Known Drug Allergies Allergy Verified 04/09/19 12:32 History of Present Illness: 49 year old woman with multiple admissions ( last admission 03/13) presents for detox. Exam Limitations: No Limitations - Ebola screening Have you traveled outside of the country in the last 21 days: No Have you had contact with anyone from an Ebola affected area: No Have you been sick,other than usual withdrawal symptoms: No Do you have a fever: No - Review of Systems Constitutional: Chills, Loss of Appetite, Changes in sleep EENT: reports: Sinus Pressure Respiratory: reports: Cough, SOB with Exertion Cardiac: reports: Lightheadedness GI: reports: Nausea, Poor Appetite, Vomiting, Abdominal cramping : reports: No Symptoms Reported Musculoskeletal: reports: Back Pain, Joint Pain, Muscle Pain, Muscle Weakness Integumentary: reports: Flushing Neuro: reports: Headache, Numbness, Tremors Endocrine: reports: No Symptoms Reported Hematology: reports: Anemia Psychiatric: reports: Depressed Other Systems: Reviewed and Negative Patient History - Patient Medical History Hx Anemia: Yes (Not on medication) Hx Asthma: No Hx Chronic Obstructive Pulmonary Disease (COPD): No Hx Cancer: No Hx Cardiac Disorders: No Hx Congestive Heart Failure: No Hx Hypertension: No Hx Hypercholesterolemia: No Hx Pacemaker: No HX Cerebrovascular Accident: No Hx Seizures: No Hx Dementia: No Hx Diabetes: No Hx Gastrointestinal Disorders: No Hx Liver Disease: No Hx Genitourinary Disorders: No Hx Sexually Transmitted Disorders: No Hx Renal Disease (ESRD): No Hx Thyroid Disease: No Hx Human Immunodeficiency Virus (HIV): No Hx Hepatitis C: No Hx Depression: Yes Hx Suicide Attempt: No Hx Bipolar Disorder: Yes Hx Schizophrenia: No - Patient Surgical History Past Surgical History: No - PPD History Previous Implant?: Yes Documented Results: Negative w/proof Implanted On Prior R Admission?: Yes Date: 01/17/18 Results: NEGATIVE 0mm PPD to be Administered?: Yes - Reproductive History Patient is a Female of Child Bearing Age (11 -55 yrs old): Yes Last Menstrual Period: 03/01/19 Patient : No - Smoking Cessation Smoking history: Never smoked Have you smoked in the past 12 months: No Hx Chewing Tobacco Use: No Initiated information on smoking cessation: No - Substances abused Alcohol Substance route: Oral Frequency: Daily Amount used: 3 pint vodka & 1 6pk beer Age of first use: 42 Date of last use: 04/09/19 Cocaine Substance route: Smoking Frequency: Daily Amount used: 10-15 bags Age of first use: 45 Date of last use: 04/08/19 Heroin Substance route: Oral Frequency: No use in 30 days Amount used: 3 pints vodka Age of first use: 45 Date of last use: 02/11/19 Admission Physical Exam [facility] - Vital Signs Vital Signs: Vital Signs - 24 hr 04/09/19 12:31 Temperature 97.3 F L Pulse Rate 91 H Respiratory 18 Rate Blood Pressure 111/72 - Physical General Appearance: Yes: No Apparent Distress, Cachetic HEENTM: Yes: Normocephalic, Normal Voice Respiratory: Yes: Chest Non-Tender, Lungs Clear, Normal Breath Sounds, No Respiratory Distress, No Accessory Muscle Use Neck: Yes: No masses,lesions,Nodules, Supple Breast: Yes: Breast Exam Deferred Cardiology: Yes: Regular Rhythm, Regular Rate, S1, S2 Abdominal: Yes: Normal Bowel Sounds, Non Tender, Soft Genitourinary: Yes: Within Normal Limits Back: Yes: Normal Inspection Musculoskeletal: Yes: Back pain, Muscle Pain, Muscle weakness Extremities: Yes: Tremors Neurological: Yes: phlebotomy coordinator II-XII NML intact, Fully Oriented, Alert, Normal Mood/ Affect, Normal Response Integumentary: Yes: Clammy Lymphatic: Yes: Within Normal Limits - Diagnostic (1) Weight loss Current Visit: Yes Status: Chronic (2) Alcohol dependence with uncomplicated withdrawal Current Visit: No Status: Acute (3) Cocaine dependence Current Visit: No Status: Acute Qualifiers: Substance use status: uncomplicated Qualified Code(s): F14.20 - Cocaine dependence, uncomplicated (4) Depression Current Visit: No Status: Chronic Qualifiers: Depression Type: unspecified Qualified Code(s): F32.9 - Major depressive disorder, single episode, unspecified Cleared for Admission S - Detox or Rehab [facility] Level of Care: Medically Managed Detox Regimen/Protocol: Librium Claeared for Rehab Admission: No Breathalyzer - Breathalyzer Breathalyzer: 0 Urine Drug Screen - Test Device Lot number: [id number] Expiration date: 11/19/20 - Control Is test valid?: Yes - Results Drug screen NEGATIVE: No Urine drug screen results: TOM-Cocaine Inpatient Rehab Admission - Rehab Decision to Admit Inpatient rehab admission?: No
[2019-04-09] MEDS ORDERED: IBUPROFEN 400 MG TABLET (FP) PO PRN (16:48)
[2019-04-09] MEDS ORDERED: METHOCARBAMOL 500 MG TABLET PO PRN (16:48)
[2019-04-09] MEDS ORDERED: ACETAMINOPHEN 325 MG TABLET (FP) PO PRN ×2 (16:48)
[2019-04-09] MEDS ORDERED: MENTHOL/PHENOL 1 EACH UD MM PRN (16:48)
[2019-04-09] MEDS ORDERED: chlordiazePOXIDE HCL 10 MG CAPSULE PO PRN (16:48)
[2019-04-09] MEDS ORDERED: MAGNESIUM HYDROX 2400MG/30ML ORAL SUSPENSION 30 ML CUP PO PRN (16:48)
[2019-04-09] MEDS ORDERED: chlordiazePOXIDE HCL 25 MG CAPSULE PO ONE (16:48)
[2019-04-09] MEDS ORDERED: hydrOXYzine PAMOATE 25 MG CAPSULE (FP) PO PRN (16:48)
[2019-04-09] MEDS ORDERED: BISMUTH SUBSALICYLATE 524 MG/30 ML UD PO PRN (16:48)
[2019-04-09] MEDS ORDERED: MELATONIN 5 MG TABLETS PO PRN (16:48)
[2019-04-09] MEDS ORDERED: MAGNESIUM CITRATE 300 ML BOTTLE PO PRN (16:48)
[2019-04-09] MEDS ORDERED: MAG HYDROX/AL HYDROX/SIMETH 30 ML UNIT-DOSE CUP PO PRN (16:48)
[2019-04-09] MEDS ORDERED: ONDANSETRON *ODT* 4 MG TABLET SL PRN (16:48)
[2019-04-09] MEDS: chlordiazePOXIDE HCL 25 MG CAPSULE PO SCH (21:33)
[2019-04-09] MEDS: THIAMINE HCL 100 MG TABLET (FP) PO SCH (21:33)
[2019-04-10] MEDS: chlordiazePOXIDE HCL 25 MG CAPSULE PO SCH ×3 (05:53→22:28)
[2019-04-10] MEDS: PRENATAL VITAMINS W/ FOLIC ACID TABLET (FP) PO SCH (10:29)
--- NOTE | 2019-04-10 16:09 | PN ---
S CIWA - CIWA Score Nausea/Vomitin-Mild Nausea/No Vomiting Muscle Tremors: 3 Anxiety: 3 Agitation: 3 Paroxysmal Sweats: 3 Orientation: 0-Oriented Tacttile Disturbances: 0-None Auditory Disturbances: 0-None Visual Disturbances: 0-None Headache: 0-None Present CIWA-Ar Total Score: 13 B[facility] Progress Note (SOAP) Subjective: Feels ok, medication working well Objective: 04/10/19 16:07 Last Vital Signs Temp Pulse Resp BP Pulse Ox 97.3 F L 81 18 109/77 04/10/19 14:38 04/10/19 14:38 04/10/19 14:38 04/10/19 14:38 Labs reviewed from 02/2019 Assessment: 04/10/19 16:08 Withdrawal sxs Plan: Continue detox Encouraged PO water hydration
[2019-04-10] MEDS: THIAMINE HCL 100 MG TABLET (FP) PO SCH (22:28)
[2019-04-11] MEDS: chlordiazePOXIDE 5 MG CAPSULE PO SCH ×3 (05:48→21:51)
[2019-04-11] MEDS: PRENATAL VITAMINS W/ FOLIC ACID TABLET (FP) PO SCH (10:58)
--- NOTE | 2019-04-11 11:35 | PN ---
[facility] CIWA - CIWA Score Nausea/Vomitin-No Nausea/No Vomiting Muscle Tremors: 3 Anxiety: 2 Agitation: 3 Paroxysmal Sweats: 2 Orientation: 0-Oriented Tacttile Disturbances: 0-None Auditory Disturbances: 0-None Visual Disturbances: 0-None Headache: 0-None Present CIWA-Ar Total Score: 10 S Progress Note (SOAP) Subjective: sweats anxiety restless interrupted sleep Objective: 04/11/19 11:34 Vital Signs Temperature 97.4 F L 04/11/19 07:12 Pulse Rate 68 04/11/19 07:12 Respiratory Rate 18 04/11/19 07:12 Blood Pressure 95/55 L 04/11/19 07:12 O2 Sat by Pulse Oximetry (%) aaox3 ambulating no acute distress Assessment: 04/11/19 11:35 withdrawals Plan: continue detox increase fluids
[2019-04-11] MEDS: THIAMINE HCL 100 MG TABLET (FP) PO SCH (21:52)
[2019-04-12] MEDS ORDERED: chlordiazePOXIDE HCL 10 MG CAPSULE PO PRN
[2019-04-12] MEDS: chlordiazePOXIDE HCL 10 MG CAPSULE PO SCH ×3 (07:24→23:32)
[2019-04-12] MEDS: PRENATAL VITAMINS W/ FOLIC ACID TABLET (FP) PO SCH (11:01)
--- NOTE | 2019-04-12 12:14 | PN ---
S CIWA - CIWA Score Nausea/Vomitin-No Nausea/No Vomiting Muscle Tremors: 2 Anxiety: 1-Mildly Anxious Agitation: 1-Slight > Activity Paroxysmal Sweats: 1-Minimal Palms Moist Orientation: 0-Oriented Tacttile Disturbances: 0-None Auditory Disturbances: 0-None Visual Disturbances: 0-None Headache: 0-None Present CIWA-Ar Total Score: 5 BHS Progress Note (SOAP) Subjective: irritable Objective: 04/12/19 12:15 Vital Signs Temperature 98.1 F 04/11/19 14:27 Pulse Rate 78 04/11/19 21:33 Respiratory Rate 18 04/12/19 00:30 Blood Pressure 113/73 04/11/19 21:33 O2 Sat by Pulse Oximetry (%) aaox3 ambulating no acute distress Assessment: 04/12/19 12:15 mild withdrawal sx Plan: continue detox d/c in am
[2019-04-12] MEDS: THIAMINE HCL 100 MG TABLET (FP) PO SCH (23:33)
[2019-04-13] MEDS ORDERED: chlordiazePOXIDE HCL 10 MG CAPSULE PO ONE (05:00)
--- NOTE | 2019-04-13 09:22 | DS ---
[facility] Detox Discharge Summary Admission Date: 04/09/19 Discharge Date: 04/13/19 - History Present History: Alcohol Dependence, Cocaine Dependence - Physical Exam Results Vital Signs: Vital Signs Temperature 97.7 F 04/11/19 17:35 Pulse Rate 78 04/11/19 21:33 Respiratory Rate 18 04/12/19 00:30 Blood Pressure 113/73 04/11/19 21:33 O2 Sat by Pulse Oximetry (%) Pertinent Admission Physical Exam Findings: pt arrived in withdrawals Laboratory Tests 04/09/19 15:02 POC Urine HCG, Qual Negative today pt is aaox3 ambulating no acute distress no s/s of withdrawal - Treatment Hospital Course: Detox Protocol Followed, Detoxed Safely, Responded well, Discharged Condition Good, Rehab Referral Accepted Patient has Accepted a Rehab Referral to: pt referred to bx atc - Medication Discharge Medications: Ambulatory Orders NK [No Known Home Medication] 06/29/18 - Diagnosis (1) Weight loss Current Visit: Yes Status: Chronic (2) Alcohol dependence with uncomplicated withdrawal Current Visit: Yes Status: Chronic (3) Cocaine dependence Current Visit: Yes Status: Chronic Qualifiers: Substance use status: uncomplicated Qualified Code(s): F14.20 - Cocaine dependence, uncomplicated (4) Bipolar disorder Current Visit: No Status: Chronic Qualifiers: Active/Remission status: remission status unspecified Qualified Code(s): F31.9 - Bipolar disorder, unspecified (5) Depression Current Visit: No Status: Chronic Qualifiers: Depression Type: unspecified Qualified Code(s): F32.9 - Major depressive disorder, single episode, unspecified - AMA Did Patient Leave Against Medical Advice: No
[2019-04-13 09:26] VITALS: BP 94/52; PULSE 101; TEMP 97.5
[2019-04-13] MEDS: PRENATAL VITAMINS W/ FOLIC ACID TABLET (FP) PO SCH (11:33)
== END 2019-04-13 12:25 | disposition home or self-care (01) | DRG 774 ==
LOC: YASAS 11:31 → Y6N 17:35
PROVIDERS: ADMIT Allergy & Immunology; ATTEND Allergy & Immunology
PROC: HZ2ZZZZ Detoxification Services for Substance Abuse Treatment (ICD-10-PCS; principal; 2019-04-09)
DX: F10.230 Alcohol dependence with withdrawal, uncomplicated (principal); F14.20 Cocaine dependence, uncomplicated; F31.9 Bipolar disorder, unspecified; R63.4 Abnormal weight loss; Z91.013 Allergy to seafood
CPT/HCPCS: 81025

== ENCOUNTER 2019-05-01 12:33 | Inpatient (IN) | payer BC ==
[2019-05-01 13:50] VITALS: BMI 21.2
--- NOTE | 2019-05-01 15:57 | HP ---
CIWA Score Nausea/Vomitin Muscle Tremors: 3 Anxiety: 3 Agitation: 3 Paroxysmal Sweats: 1-Minimal Palms Moist Orientation: 0-Oriented Tacttile Disturbances: 0-None Auditory Disturbances: 0-None Visual Disturbances: 0-None Headache: 2-Mild CIWA-Ar Total Score: 15 - Admission Criteria OASAS Guidelines: Admission for Medically Managed Detox: Requires at least one of the followin. CIWA greater than 12 2. Seizures within the past 24 hours 3. Delirium tremens within the past 24 hours 4. Hallucinations within the past 24 hours 5. Acute intervention needed for co occurring medical disorder 6. Acute intervention needed for co occurring psychiatric disorder 7. Severe withdrawal that cannot be handled at a lower level of care (continued vomiting, continued diarrhea, abnormal vital signs) requiring intravenous medication and/or fluids 8. Admitting History and Physical - Past Medical History ...LMP: 03/01/19 - Smoking History Smoking history: Never smoked Have you smoked in the past 12 months: No - Alcohol/Substance Use Hx Alcohol Use: Yes Admission ROS [facility] - HPI Chief Complaint: i need help to stop drinking alcohol and cocaine Allergies/Adverse Reactions: Allergies Allergy/AdvReac Type Severity Reaction Status Date / Time Fish Containing Products Allergy Verified 05/01/19 13:46 No Known Drug Allergies Allergy Verified 05/01/19 13:46 History of Present Illness: this 49 years old female with alcohol,cocaine dependence seeking detox, withdrawal symptom, multiple admissions in detox,last 04/09/19 to 03/24/19 denied seizure denied syncope history of anemia weight loss depression plan for rehab living in [facility] Exam Limitations: No Limitations - Ebola screening Have you traveled outside of the country in the last 21 days: No (N) Have you had contact with anyone from an Ebola affected area: No Do you have a fever: No - Review of Systems Constitutional: Loss of Appetite, Malaise, Night Sweats, Changes in sleep, Weakness, Unintentional Wgt. Loss EENT: reports: Tearing, Nose Congestion Respiratory: reports: No Symptoms reported Cardiac: reports: Palpitations GI: reports: Diarrhea, Nausea, Vomiting, Abdominal cramping : reports: No Symptoms Reported Musculoskeletal: reports: Back Pain, Muscle Pain Integumentary: reports: Dryness Neuro: reports: Headache, Tremors Endocrine: reports: No Symptoms Reported Hematology: reports: No Symptoms Reported Psychiatric: reports: No Sypmtoms Reported Other Systems: Reviewed and Negative Patient History - Patient Medical History Hx Anemia: Yes (Not on medication) Hx Asthma: No Hx Chronic Obstructive Pulmonary Disease (COPD): No Hx Cancer: No Hx Cardiac Disorders: No Hx Congestive Heart Failure: No Hx Hypertension: No Hx Hypercholesterolemia: No Hx Pacemaker: No HX Cerebrovascular Accident: No Hx Seizures: No Hx Dementia: No Hx Diabetes: No Hx Gastrointestinal Disorders: No Hx Liver Disease: No Hx Genitourinary Disorders: No Hx Sexually Transmitted Disorders: No Hx Renal Disease (ESRD): No Hx Thyroid Disease: No Hx Human Immunodeficiency Virus (HIV): No (last 2018 nnegative) Hx Hepatitis C: No Hx Depression: Yes Hx Suicide Attempt: No Hx Bipolar Disorder: No (no med) Hx Schizophrenia: No Other Medical History: no sucidal,no homicidal - Patient Surgical History Past Surgical History: No Hx Neurologic Surgery: No Hx Cataract Extraction: No Hx Cardiac Surgery: No Hx Lung Surgery: No Hx Breast Surgery: No Hx Breast Biopsy: No Hx Abdominal Surgery: No Hx Appendectomy: No Hx Cholecystectomy: No Hx Genitourinary Surgery: No Hx Section: No Hx Orthopedic Surgery: No Anesthesia Reaction: No - PPD History Previous Implant?: Yes Documented Results: Negative w/proof Date: 04/12/19 Results: NEGATIVE 0mm PPD to be Administered?: No - Reproductive History Patient is a Female of Child Bearing Age (11 -55 yrs old): Yes Last Menstrual Period: 04/10/19 Patient : No - Smoking Cessation Smoking history: Never smoked Have you smoked in the past 12 months: No Hx Chewing Tobacco Use: No - Substance & Tx. History Hx Alcohol Use: Yes Hx Substance Use: Yes Substance Use Type: Alcohol, Cocaine, Heroin Hx Substance Use Treatment: Yes ([facility] 04/09/19 to 04/13/19) - Substances abused Alcohol Substance route: Oral Frequency: Daily Amount used: 3 pint vodka & 1 6pk beer Age of first use: 37 Date of last use: 05/01/19 Cocaine Substance route: Smoking Frequency: Daily Amount used: 10-15 bags Age of first use: 45 Date of last use: 05/01/19 Heroin Substance route: Oral Frequency: No use in 30 days Amount used: 3 pints vodka Age of first use: 45 Date of last use: 02/11/19 Admission Physical Exam [facility] - Vital Signs Vital Signs: Vital Signs - 24 hr 05/01/19 05/01/19 13:46 15:31 Temperature 98.9 F 98.9 F Pulse Rate 97 H 97 H Respiratory 18 18 Rate Blood Pressure 113/74 113/74 - Physical General Appearance: Yes: Moderate Distress, Tremorous, Irritable, Sweating, Anxious HEENTM: Yes: Normal ENT Inspection, Normal Voice, ROSALBA, Pharynx Normal Respiratory: Yes: Lungs Clear, Normal Breath Sounds, No Respiratory Distress Neck: Yes: Within Normal Limits, Supple, Trachea in good position Breast: Yes: Within Normal Limits Cardiology: Yes: Regular Rhythm, Regular Rate, S1, S2 Abdominal: Yes: Within Normal Limits, Normal Bowel Sounds, Soft Genitourinary: Yes: Within Normal Limits Back: Yes: Muscle Spasm Musculoskeletal: Yes: Back pain, Muscle Pain Neurological: Yes: complex care nurse II-XII NML intact, Fully Oriented, Alert, Motor Strength 5/5 Integumentary: Yes: Dry Lymphatic: Yes: Within Normal Limits - Diagnostic (1) Alcohol dependence with uncomplicated withdrawal Current Visit: No Status: Chronic (2) Cocaine dependence Current Visit: No Status: Chronic Qualifiers: Substance use status: uncomplicated Qualified Code(s): F14.20 - Cocaine dependence, uncomplicated (3) Depression Current Visit: No Status: Chronic Qualifiers: Depression Type: unspecified Qualified Code(s): F32.9 - Major depressive disorder, single episode, unspecified (4) Weight loss Current Visit: No Status: Chronic Cleared for Admission [facility] - Detox or Rehab [facility] Level of Care: Medically Managed Detox Regimen/Protocol: Librium Breathalyzer - Breathalyzer Breathalyzer: 0 Urine Drug Screen - Test Device Lot number: [id number] Expiration date: 01/19/21 - Control Is test valid?: Yes - Results Drug screen NEGATIVE: No Urine drug screen results: TOM-Cocaine, BZO-Benzodiazepines Inpatient Rehab Admission - Rehab Decision to Admit Inpatient rehab admission?: No
[2019-05-01] MEDS ORDERED: guaiFENesin 200 MG/10 ML 10 ML UNIT-DOSE CUPS PO PRN (16:12)
[2019-05-01] MEDS ORDERED: METHOCARBAMOL 500 MG TABLET PO PRN (17:26)
[2019-05-01] MEDS ORDERED: hydrOXYzine PAMOATE 25 MG CAPSULE (FP) PO PRN (17:26)
[2019-05-01] MEDS ORDERED: chlordiazePOXIDE HCL 25 MG CAPSULE PO PRN (17:26)
[2019-05-01] MEDS ORDERED: BISMUTH SUBSALICYLATE 524 MG/30 ML UD PO PRN (17:26)
[2019-05-01] MEDS ORDERED: MAG HYDROX/AL HYDROX/SIMETH 30 ML UNIT-DOSE CUP PO PRN (17:26)
[2019-05-01] MEDS ORDERED: IBUPROFEN 400 MG TABLET (FP) PO PRN (17:26)
[2019-05-01] MEDS ORDERED: MAGNESIUM HYDROX 2400MG/30ML ORAL SUSPENSION 30 ML CUP PO PRN (17:26)
[2019-05-01] MEDS ORDERED: MENTHOL/PHENOL 1 EACH UD MM PRN (17:26)
[2019-05-01] MEDS ORDERED: ACETAMINOPHEN 325 MG TABLET (FP) PO PRN ×2 (17:26)
[2019-05-01] MEDS ORDERED: MAGNESIUM CITRATE 300 ML BOTTLE PO PRN (17:26)
[2019-05-01] MEDS ORDERED: MELATONIN 5 MG TABLETS PO PRN (22:00)
[2019-05-01] MEDS: chlordiazePOXIDE HCL 25 MG CAPSULE PO SCH (22:56)
[2019-05-01] MEDS: THIAMINE HCL 100 MG TABLET (FP) PO SCH (22:56)
[2019-05-02] MEDS: chlordiazePOXIDE HCL 25 MG CAPSULE PO SCH ×4 (05:41→22:29)
[2019-05-02 09:54] LABS: URINE APPEARANCE CLEAR; URINE BILIRUBIN NEGATIVE (NEGATIVE); URINE COLOR YELLOW; URINE GLUCOSE (UA) NEGATIVE (NEGATIVE); URINE KETONE NEGATIVE (NEGATIVE); URINE LEUK ESTERASE NEGATIVE (NEGATIVE); URINE NITRITE NEGATIVE (NEGATIVE); URINE PROTEIN TRACE (NEGATIVE)
[2019-05-02] MEDS: PRENATAL VITAMINS W/ FOLIC ACID TABLET (FP) PO SCH (10:45)
--- NOTE | 2019-05-02 11:54 | PN ---
S CIWA - CIWA Score Nausea/Vomitin-Mild Nausea/No Vomiting Muscle Tremors: 2 Anxiety: 2 Agitation: 2 Paroxysmal Sweats: No Perspiration Orientation: 0-Oriented Tacttile Disturbances: 1-Very Mild Itch/Numbness Auditory Disturbances: 0-None Visual Disturbances: 0-None Headache: 1-Very Mild CIWA-Ar Total Score: 9 BHS Progress Note (SOAP) Subjective: alert,irritable,anxious,interrupted sleep,tremor Objective: 05/02/19 11:52 Vital Signs Temperature 98.7 F 05/02/19 09:41 Pulse Rate 88 05/02/19 09:41 Respiratory Rate 18 05/02/19 09:41 Blood Pressure 101/69 05/02/19 09:41 O2 Sat by Pulse Oximetry (%) Laboratory Last Values Urine Color Yellow 05/02/19 07:50 Urine Appearance Clear 05/02/19 07:50 Urine pH 7.0 (5.0-8.0) D 05/02/19 07:50 Ur Specific [place] 1.025 (1.010-1.035) 05/02/19 07:50 Urine Protein Trace (NEGATIVE) 05/02/19 07:50 Urine Glucose (UA) Negative (NEGATIVE) 05/02/19 07:50 Urine Ketones Negative (NEGATIVE) 05/02/19 07:50 Urine Blood Negative (NEGATIVE) 05/02/19 07:50 Urine Nitrite Negative (NEGATIVE) 05/02/19 07:50 Urine Bilirubin Negative (NEGATIVE) 05/02/19 07:50 Urine Urobilinogen 1.0 mg/dL (0.2-1.0) 05/02/19 07:50 Ur Leukocyte Esterase Negative (NEGATIVE) 05/02/19 07:50 labs pending Assessment: 05/02/19 11:52 withdrawal symptom Plan: continue detox librium regimen
[2019-05-02] MEDS: THIAMINE HCL 100 MG TABLET (FP) PO SCH (22:29)
[2019-05-02] MEDS: diphenhydrAMINE HCL 25 MG CAPSULE (FP) PO SCH (22:29)
[2019-05-03] MEDS: chlordiazePOXIDE HCL 25 MG CAPSULE PO SCH ×4 (06:34→22:30)
[2019-05-03] MEDS: PRENATAL VITAMINS W/ FOLIC ACID TABLET (FP) PO SCH (10:34)
--- NOTE | 2019-05-03 13:28 | PN ---
S CIWA - CIWA Score Nausea/Vomitin-No Nausea/No Vomiting Muscle Tremors: 3 Anxiety: 2 Agitation: 3 Paroxysmal Sweats: 2 Orientation: 0-Oriented Tacttile Disturbances: 0-None Auditory Disturbances: 0-None Visual Disturbances: 0-None Headache: 0-None Present CIWA-Ar Total Score: 10 BHS Progress Note (SOAP) Subjective: sweats shakes insomnia Objective: 05/03/19 13:27 Vital Signs Temperature 97.9 F 05/03/19 09:29 Pulse Rate 85 05/03/19 09:29 Respiratory Rate 18 05/03/19 09:29 Blood Pressure 112/73 05/03/19 09:29 O2 Sat by Pulse Oximetry (%) Laboratory Tests 05/01/19 05/02/19 15:32 07:50 Urine Color Yellow Urine Appearance Clear Urine pH 7.0 D Ur Specific [place] 1.025 Urine Protein Trace Urine Glucose (UA) Negative Urine Ketones Negative Urine Blood Negative Urine Nitrite Negative Urine Bilirubin Negative Urine Urobilinogen 1.0 Ur Leukocyte Esterase Negative POC Urine HCG, Qual Negative labs noted aaox3 ambulating no acute distress Assessment: 05/03/19 13:27 withdrawal sx Plan: continue detox
[2019-05-03] MEDS: diphenhydrAMINE HCL 25 MG CAPSULE (FP) PO SCH (22:30)
[2019-05-03] MEDS: THIAMINE HCL 100 MG TABLET (FP) PO SCH (22:30)
[2019-05-04] MEDS ORDERED: chlordiazePOXIDE HCL 10 MG CAPSULE PO PRN
[2019-05-04] MEDS: chlordiazePOXIDE HCL 10 MG CAPSULE PO SCH ×4 (05:46→22:34)
--- NOTE | 2019-05-04 09:52 | PN ---
S CIWA - CIWA Score Nausea/Vomitin-No Nausea/No Vomiting Muscle Tremors: 1-None Visible, but [place] Anxiety: 2 Agitation: 2 Paroxysmal Sweats: No Perspiration Orientation: 0-Oriented Tacttile Disturbances: 1-Very Mild Itch/Numbness Auditory Disturbances: 0-None Visual Disturbances: 0-None Headache: 1-Very Mild CIWA-Ar Total Score: 7 BHS Progress Note (SOAP) Subjective: alert,irritable,anxious,interrupted sleep Objective: 05/04/19 09:51 Vital Signs Temperature 96.4 F L 05/04/19 07:18 Pulse Rate 80 05/04/19 07:18 Respiratory Rate 16 05/04/19 07:18 Blood Pressure 106/69 05/04/19 07:18 O2 Sat by Pulse Oximetry (%) 05/04/19 09:51 Laboratory Last Values Urine Color Yellow 05/02/19 07:50 Urine Appearance Clear 05/02/19 07:50 Urine pH 7.0 (5.0-8.0) D 05/02/19 07:50 Ur Specific [place] 1.025 (1.010-1.035) 05/02/19 07:50 Urine Protein Trace (NEGATIVE) 05/02/19 07:50 Urine Glucose (UA) Negative (NEGATIVE) 05/02/19 07:50 Urine Ketones Negative (NEGATIVE) 05/02/19 07:50 Urine Blood Negative (NEGATIVE) 05/02/19 07:50 Urine Nitrite Negative (NEGATIVE) 05/02/19 07:50 Urine Bilirubin Negative (NEGATIVE) 05/02/19 07:50 Urine Urobilinogen 1.0 mg/dL (0.2-1.0) 05/02/19 07:50 Ur Leukocyte Esterase Negative (NEGATIVE) 05/02/19 07:50 POC Urine HCG, Qual Negative 05/01/19 15:32 Assessment: 05/04/19 09:52 withdrawal symptom Plan: continue detox librium regimen
[2019-05-04] MEDS: PRENATAL VITAMINS W/ FOLIC ACID TABLET (FP) PO SCH (11:00)
[2019-05-04] MEDS: THIAMINE HCL 100 MG TABLET (FP) PO SCH (22:34)
[2019-05-04] MEDS: diphenhydrAMINE HCL 25 MG CAPSULE (FP) PO SCH (22:34)
[2019-05-05] MEDS: chlordiazePOXIDE HCL 10 MG CAPSULE PO SCH ×2 (05:54→17:58)
--- NOTE | 2019-05-05 10:12 | PN ---
[facility] CIWA - CIWA Score Nausea/Vomitin-No Nausea/No Vomiting Muscle Tremors: 1-None Visible, but [place] Anxiety: 1-Mildly Anxious Agitation: 1-Slight > Activity Paroxysmal Sweats: No Perspiration Orientation: 0-Oriented Tacttile Disturbances: 0-None Auditory Disturbances: 0-None Visual Disturbances: 0-None Headache: 2-Mild CIWA-Ar Total Score: 5 BHS Progress Note (SOAP) Subjective: alert,irritable,interrupted sleep Objective: 05/05/19 10:11 Vital Signs Temperature 96.6 F L 05/04/19 21:07 Pulse Rate 79 05/04/19 21:07 Respiratory Rate 18 05/05/19 03:30 Blood Pressure 127/86 05/04/19 21:07 O2 Sat by Pulse Oximetry (%) Assessment: 05/05/19 10:12 withdrawal symptom Plan: continue detox librium regimen
[2019-05-05] MEDS: PRENATAL VITAMINS W/ FOLIC ACID TABLET (FP) PO SCH (11:16)
[2019-05-05] MEDS: diphenhydrAMINE HCL 25 MG CAPSULE (FP) PO SCH (22:55)
[2019-05-05] MEDS: THIAMINE HCL 100 MG TABLET (FP) PO SCH (22:55)
[2019-05-06] MEDS ORDERED: chlordiazePOXIDE HCL 10 MG CAPSULE PO ONE (05:00)
--- NOTE | 2019-05-06 09:21 | DS ---
[facility] Detox Discharge Summary Admission Date: 05/01/19 Discharge Date: 05/06/19 - History Present History: Alcohol Dependence, Cocaine Dependence - Physical Exam Results Vital Signs: Vital Signs Temperature 97.9 F 05/05/19 18:00 Pulse Rate 72 05/06/19 06:46 Respiratory Rate 16 05/06/19 06:46 Blood Pressure 105/61 05/06/19 06:46 O2 Sat by Pulse Oximetry (%) Pertinent Admission Physical Exam Findings: pt arrived in withdrawals Vital Signs Temperature 98.1 F 05/06/19 09:27 Pulse Rate 114 H 05/06/19 09:27 Respiratory Rate 16 05/06/19 09:27 Blood Pressure 154/60 05/06/19 09:27 O2 Sat by Pulse Oximetry (%) aaox3 ambulating no acute distress - Treatment Hospital Course: Detox Protocol Followed, Detoxed Safely, Responded well, Discharged Condition Good, Rehab Referral Accepted Patient has Accepted a Rehab Referral to: pt referred to [facility] inpatient rehab - Medication Discharge Medications: Ambulatory Orders NK [No Known Home Medication] 06/29/18 - Diagnosis (1) Alcohol dependence with uncomplicated withdrawal Current Visit: Yes Status: Chronic (2) Bipolar disorder Current Visit: Yes Status: Chronic Qualifiers: Active/Remission status: remission status unspecified Qualified Code(s): F31.9 - Bipolar disorder, unspecified (3) Cocaine dependence Current Visit: Yes Status: Chronic Qualifiers: Substance use status: uncomplicated Qualified Code(s): F14.20 - Cocaine dependence, uncomplicated (4) Depression Current Visit: No Status: Chronic Qualifiers: Depression Type: unspecified Qualified Code(s): F32.9 - Major depressive disorder, single episode, unspecified (5) Weight loss Current Visit: No Status: Chronic - AMA Did Patient Leave Against Medical Advice: No
[2019-05-06] MEDS: PRENATAL VITAMINS W/ FOLIC ACID TABLET (FP) PO SCH (11:15)
[2019-05-06 13:16] VITALS: BP 98/56; PULSE 84; TEMP 98.2
== END 2019-05-06 02:25 | disposition home or self-care (01) | DRG 774 ==
LOC: YASAS 12:33 → Y6N 16:45
PROVIDERS: ADMIT Allergy & Immunology; ATTEND Allergy & Immunology
PROC: HZ2ZZZZ Detoxification Services for Substance Abuse Treatment (ICD-10-PCS; principal; 2019-05-01)
DX: F10.230 Alcohol dependence with withdrawal, uncomplicated (principal); F14.20 Cocaine dependence, uncomplicated; F31.9 Bipolar disorder, unspecified; R63.4 Abnormal weight loss; Z68.21 Body mass index [BMI] 21.0-21.9, adult; Z86.2 Personal history of diseases of the blood and blood-forming organs and certain disorders involving the immune mechanism; Z91.013 Allergy to seafood; Z59.0 Homelessness
CPT/HCPCS: 81003; 81025

== ENCOUNTER 2020-01-24 14:17 | Inpatient (IN) | payer BC ==
--- NOTE | 2020-01-24 14:31 | BHS.RME ---
Physical/Psych/Mental Status - Behavior General Behavior: Increased activity (restlessness, agitation) Eye Contact: Normal - Cooperativeness Cooperativeness: Cooperative - Thinking Thought Processes: Tight Thought content: Future oriented - Physical Health Problems Is patient presently having any pain?: No Does patient presently have any injuries (include location): No Does patient currently have a fever: No CIWA Nausea/Vomitin-Mild Nausea/No Vomiting Muscle Tremors: 3 Anxiety: 3 Agitation: 1-Slight > Activity Paroxysmal Sweats: No Perspiration Orientation: 0-Oriented Tacttile Disturbances: 0-None Auditory Disturbances: 2-Mild Harshness/Frighten Visual Disturbances: 2-Mild Sensitivity Headache: 0-None Present CIWA-Ar Total Score: 12
--- NOTE | 2020-01-24 16:06 | HP ---
CIWA Score Nausea/Vomitin-Mild Nausea/No Vomiting Muscle Tremors: 3 Anxiety: 3 Agitation: 1-Slight > Activity Paroxysmal Sweats: No Perspiration Orientation: 0-Oriented Tacttile Disturbances: 0-None Auditory Disturbances: 2-Mild Harshness/Frighten Visual Disturbances: 2-Mild Sensitivity Headache: 0-None Present CIWA-Ar Total Score: 12 - Admission Criteria OASAS Guidelines: Admission for Medically Managed Detox: Requires at least one of the followin. CIWA greater than 12 2. Seizures within the past 24 hours 3. Delirium tremens within the past 24 hours 4. Hallucinations within the past 24 hours 5. Acute intervention needed for co occurring medical disorder 6. Acute intervention needed for co occurring psychiatric disorder 7. Severe withdrawal that cannot be handled at a lower level of care (continued vomiting, continued diarrhea, abnormal vital signs) requiring intravenous medication and/or fluids 8. Admitting History and Physical - Admission Chief Complaint: "Need detox from cocaine, alcohol, marijuana" History of Present Illness: CC: "Need detox from cocaine, alcohol, marijuana" HPI: Elaina is a 49 year old woman with polysubstance use disorder (alcohol, crack, marijuana), seeking detox. She reports drinking an unknown liquid at 6am 01/24/20, given to her by her friend, which made her sick with diarrhea. She felt very ill and reports heading to [facility] ED later in the morning. She was not admitted but was given a pill for the diarrhea, and left. She reports feeling better and is now seeking detox. Substance: Alcohol Amount: 2 pints daily vodka Route: oral Last Use: 01/24/20 2am Age of first use: 32 Substance: Crack Amount: $100 Route: Smoking 2am Last Use: 01/24/20 Age of first use: 46 Substance: Marijuana Amount: $20/day Route: Smoking Last Use: 01/23/20 Age of first use: 47 PMH: Anemia, hypertension PSH: None Psych: None Social: [facility] in [facility] Legal: None History Source: Patient Limitations to Obtaining History: No Limitations - Past Medical History ...LMP: 04/10/19 - Smoking History Smoking history: Never smoked Have you smoked in the past 12 months: No - Alcohol/Substance Use Hx Alcohol Use: Yes Admission ROS [facility] - HPI Chief Complaint: "Need detox from cocaine, alcohol, marijuana" Allergies/Adverse Reactions: Allergies Allergy/AdvReac Type Severity Reaction Status Date / Time Fish Containing Products Allergy Verified 05/01/19 13:46 No Known Drug Allergies Allergy Verified 05/01/19 13:46 Exam Limitations: No Limitations - Ebola screening Have you traveled outside of the country in the last 21 days: No Have you had contact with anyone from an Ebola affected area: No Have you been sick,other than usual withdrawal symptoms: No Do you have a fever: No - Review of Systems Constitutional: Unintentional Wgt. Loss EENT: denies: Eye Pain, Ear Pain, Nose Congestion, Dental Problems Respiratory: reports: Cough. denies: Shortness of Breath Cardiac: denies: Chest Pain GI: reports: Diarrhea : reports: No Symptoms Reported Musculoskeletal: reports: No Symptoms Reported Integumentary: denies: Rash Endocrine: reports: No Symptoms Reported Hematology: reports: No Symptoms Reported Psychiatric: reports: Orientated x3 Patient History - Patient Medical History Hx Anemia: Yes (Not on medication) Hx Asthma: No Hx Chronic Obstructive Pulmonary Disease (COPD): No Hx Cancer: No Hx Cardiac Disorders: No Hx Congestive Heart Failure: No Hx Hypertension: No Hx Hypercholesterolemia: No Hx Pacemaker: No HX Cerebrovascular Accident: No Hx Seizures: No Hx Dementia: No Hx Diabetes: No Hx Gastrointestinal Disorders: No Hx Liver Disease: No Hx Genitourinary Disorders: No Hx Sexually Transmitted Disorders: No Hx Renal Disease (ESRD): No Hx Thyroid Disease: No Hx Human Immunodeficiency Virus (HIV): No (last 2018 nnegative) Hx Hepatitis C: No Hx Depression: Yes Hx Suicide Attempt: No Hx Bipolar Disorder: No (no med) Hx Schizophrenia: No - Patient Surgical History Past Surgical History: No Hx Neurologic Surgery: No Hx Cataract Extraction: No Hx Cardiac Surgery: No Hx Lung Surgery: No Hx Breast Surgery: No Hx Breast Biopsy: No Hx Abdominal Surgery: No Hx Appendectomy: No Hx Cholecystectomy: No Hx Genitourinary Surgery: No Hx Section: No Hx Orthopedic Surgery: No Anesthesia Reaction: No - PPD History Date: 04/12/19 Results: NEGATIVE 0mm - Reproductive History Last Menstrual Period: 04/10/19 - Smoking Cessation Smoking history: Never smoked Have you smoked in the past 12 months: No Hx Chewing Tobacco Use: No Admission Physical Exam BHS - Physical General Appearance: Yes: Thin, Tremorous HEENTM: Yes: Normocephalic, Normal Voice, ROSALBA Respiratory: Yes: Lungs Clear, Normal Breath Sounds, No Respiratory Distress, No Accessory Muscle Use Neck: Yes: Within Normal Limits Breast: Yes: Breast Exam Deferred Cardiology: Yes: Regular Rhythm, S1, S2 Abdominal: Yes: Flat, Soft Genitourinary: Yes: Within Normal Limits Back: Yes: Within Normal Limits Musculoskeletal: Yes: Within Normal Limits, full range of Motion, Gait Steady Extremities: Yes: Within Normal Limits, Normal Inspection, Tremors Neurological: Yes: Fully Oriented, Motor Strength 5/5, Normal Mood/Affect, Normal Response Integumentary: Yes: Within Normal Limits, Normal Color, Dry - Diagnostic (1) Marijuana use Current Visit: Yes Status: Chronic (2) Cocaine use disorder Current Visit: Yes Status: Acute (3) Alcohol dependence with uncomplicated withdrawal Current Visit: No Status: Acute Cleared for Admission S - Detox or Rehab [facility] Level of Care: Medically Managed Screened but not Admitted - Documentation of Visit Screened but not Admitted: No Breathalyzer - Breathalyzer Breathalyzer: 0 Urine Drug Screen - Test Device Lot number: [id number] Expiration date: 01/23/22 - Control Is test valid?: Yes - Results Drug screen NEGATIVE: No Urine drug screen results: TOM-Cocaine, MET-Methamphetamine, AMP-Amphetamines, BAR-Barbiturates Inpatient Rehab Admission - Rehab Decision to Admit Inpatient rehab admission?: No
[2020-01-24] MEDS ORDERED: ONDANSETRON *ODT* 4 MG TABLET SL PRN (16:36)
[2020-01-24] MEDS ORDERED: MAG HYDROX/AL HYDROX/SIMETH 30 ML UNIT-DOSE CUP PO PRN (16:36)
[2020-01-24] MEDS ORDERED: IBUPROFEN 400 MG TABLET (FP) PO PRN (16:36)
[2020-01-24] MEDS ORDERED: MENTHOL/PHENOL 1 EACH UD MM PRN (16:36)
[2020-01-24] MEDS ORDERED: MAGNESIUM CITRATE 300 ML BOTTLE PO PRN (16:36)
[2020-01-24] MEDS ORDERED: chlordiazePOXIDE HCL 25 MG CAPSULE PO PRN (16:36)
[2020-01-24] MEDS ORDERED: MAGNESIUM HYDROX 2400MG/30ML ORAL SUSPENSION 30 ML CUP PO PRN (16:36)
[2020-01-24] MEDS ORDERED: METHOCARBAMOL 500 MG TABLET PO PRN (16:36)
[2020-01-24] MEDS ORDERED: ACETAMINOPHEN 325 MG TABLET (FP) PO PRN ×2 (16:36)
[2020-01-24] MEDS ORDERED: BISMUTH SUBSALICYLATE 524 MG/30 ML UD PO PRN (16:36)
[2020-01-24] MEDS: chlordiazePOXIDE HCL 25 MG CAPSULE PO SCH ×2 (17:53→22:51)
[2020-01-24] MEDS ORDERED: hydrOXYzine PAMOATE 25 MG CAPSULE (FP) PO SCH (18:00)
[2020-01-24] MEDS ORDERED: hydrOXYzine PAMOATE 25 MG CAPSULE (FP) PO PRN (19:16)
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
[2020-01-24] MEDS: THIAMINE HCL 100 MG TABLET (FP) PO SCH (22:51)
[2020-01-24] MEDS: MELATONIN 5 MG TABLETS PO SCH (22:51)
[2020-01-25] MEDS: chlordiazePOXIDE HCL 25 MG CAPSULE PO SCH ×4 (06:20→22:42)
[2020-01-25] MEDS ORDERED: MASKS NR ONE (08:24)
--- NOTE | 2020-01-25 09:40 | PN ---
S CIWA - CIWA Score Nausea/Vomitin-Mild Nausea/No Vomiting Muscle Tremors: 3 Anxiety: 3 Agitation: 0-Normal Activity Paroxysmal Sweats: 1-Minimal Palms Moist Orientation: 0-Oriented Tacttile Disturbances: 0-None Auditory Disturbances: 0-None Visual Disturbances: 2-Mild Sensitivity Headache: 1-Very Mild CIWA-Ar Total Score: 11 S Progress Note (SOAP) Subjective: 49 years old male admitted on 01/24/20 for alcohol withdrawal sx management treating with librium detox regiment feeling tired prefers to resting in bed limited conversation with staff Objective: 01/25/20 09:42 Vital Signs - 24 hr 01/24/20 01/24/20 01/24/20 16:37 16:58 17:27 Temperature 97.3 F L 97.3 F L Pulse Rate 91 H 90 Respiratory 14 16 Rate Blood Pressure 108/72 111/74 O2 Sat by Pulse 100 Oximetry (%) 01/24/20 01/24/20 01/25/20 18:19 21:05 06:18 Temperature 97.3 F L 96.9 F L Pulse Rate 94 H 82 Respiratory 16 18 Rate Blood Pressure 120/82 114/73 O2 Sat by Pulse 100 99 100 Oximetry (%) 01/25/20 08:43 Temperature 97.7 F Pulse Rate 92 H Respiratory 18 Rate Blood Pressure 102/66 O2 Sat by Pulse 100 Oximetry (%) Laboratory Tests 01/24/20 15:28 POC Urine HCG, Qual Negative 01/25/20 09:44 [facility] admission lab been cancelled reorder admission lab Assessment: 01/25/20 09:44 alcohol withdrawal Plan: librium regiment
[2020-01-25] MEDS ORDERED: PRENATAL VITAMINS W/ FOLIC ACID TABLET (FP) PO SCH (10:00)
[2020-01-25] MEDS ORDERED: PNEUMOCOCCAL 23 VACCINE 0.5 ML VIAL IM ONE (12:00)
[2020-01-25] MEDS ORDERED: PNEUMOC 13-VAL CONJ-DIP CRM/PF 0.5 ML DISP.SYRIN IM ONE (12:00)
--- NOTE | 2020-01-25 12:45 | CONSULT ---
[facility] Psychiatric Consult - Data Date of interview: 01/25/20 Admission source: [facility] Identifying data: Patient is approached at bedside for psychiatric interview. She refuses. Nursing staff is made aware.
[2020-01-25] MEDS: MELATONIN 5 MG TABLETS PO SCH (22:41)
[2020-01-25] MEDS: THIAMINE HCL 100 MG TABLET (FP) PO SCH (22:41)
[2020-01-26] MEDS ORDERED: chlordiazePOXIDE HCL 25 MG CAPSULE PO SCH (05:00)
[2020-01-26 06:22] VITALS: BP 99/60; PULSE 67; TEMP 97.5
--- NOTE | 2020-01-26 08:43 | DS ---
[facility] Detox Discharge Summary Admission Date: 01/24/20 Discharge Date: 01/26/20 - History Present History: Alcohol Dependence Additional Comments: 49 years old female admitted on 01/24/20 for alcohol withdrawal sx management treating with librium detox regiment ms kelley insists to leave the detox today that she prefers to go home sleep in own room ms kelley refuses to be seen by a psychiatrist while in detox that she has her own psychiatrist in the community ms kelley refuses to take librium for alcohol withdrawal "I do not need the medication" ms kelley refues admission blood work states that she does not drink long enough to have alcohol withdrawal ms kelley is alert oriented x 3 speech clearly coherently ambulating steady gaits General Appearance: Yes: Thin, Tremorous HEENTM: Yes: Normocephalic, Normal Voice, ROSALBA Respiratory: Yes: Lungs Clear, Normal Breath Sounds, No Respiratory Distress, No Accessory Muscle Use Neck: Yes: Within Normal Limits Breast: Yes: Breast Exam Deferred Cardiology: Yes: Regular Rhythm, S1, S2 Abdominal: Yes: Flat, Soft Genitourinary: Yes: Within Normal Limits Back: Yes: Within Normal Limits Musculoskeletal: Yes: Within Normal Limits, full range of Motion, Gait Steady Extremities: Yes: Within Normal Limits, Normal Inspection, Tremors Neurological: Yes: Fully Oriented, Motor Strength 5/5, Normal Mood/Affect, Normal Response Integumentary: Yes: Within Normal Limits, Normal Color, Dry Pertinent Past History: time for discharge 56 minutes treatment team met with ms kelley discussing benefits of librium completion as well as follow up [facility] nurse concerns ms kelley has not taking librium for alcohol withdrawal that a gainst medical advice is appropriated discontinue discharge order - Physical Exam Results Vital Signs: Vital Signs Temperature 97.5 F L 01/26/20 06:22 Pulse Rate 67 01/26/20 06:22 Respiratory Rate 16 01/26/20 06:22 Blood Pressure 99/60 01/26/20 06:22 O2 Sat by Pulse Oximetry (%) 100 01/26/20 06:22 Pertinent Admission Physical Exam Findings: alcohol withdrawal Laboratory Tests 01/24/20 01/24/20 15:28 17:00 POC Urine HCG, Qual Negative COVID-19 ([facility]ADIA) Not detected - Treatment Hospital Course: Detox Protocol Followed, Detoxed Safely, Responded well, Discharged Condition Good, Rehab Referral Accepted Patient has Accepted a [facility] Ref[facility] - Medication Discharge Medications: Ambulatory Orders NK [No Known Home Medication] 06/29/18 - Diagnosis (1) Substance induced mood disorder Status: Suspected (2) Alcohol dependence with uncomplicated withdrawal Status: Acute (3) Weight loss Status: Chronic - AMA Did Patient Leave Against Medical Advice: Yes CIWA Score - CIWA Score Nausea/Vomitin-No Nausea/No Vomiting Muscle Tremors: 3 Anxiety: 2 Agitation: 0-Normal Activity Paroxysmal Sweats: No Perspiration Orientation: 0-Oriented Tacttile Disturbances: 0-None Auditory Disturbances: 0-None Visual Disturbances: 1-Very Mild Sensitivity Headache: 0-None Present CIWA-Ar Total Score: 6
[2020-01-27] MEDS ORDERED: chlordiazePOXIDE HCL 10 MG CAPSULE PO PRN
[2020-01-27] MEDS ORDERED: chlordiazePOXIDE HCL 10 MG CAPSULE PO SCH (05:00)
[2020-01-28] MEDS ORDERED: chlordiazePOXIDE HCL 10 MG CAPSULE PO SCH (05:00)
[2020-01-29] MEDS ORDERED: chlordiazePOXIDE HCL 10 MG CAPSULE PO ONE (05:00)
== END 2020-01-26 09:36 | disposition left against medical advice (07) | DRG 770 ==
LOC: YASAS 14:17 → Y3N 16:43
PROVIDERS: ADMIT Allergy & Immunology; ATTEND Allergy & Immunology
PROC: HZ2ZZZZ Detoxification Services for Substance Abuse Treatment (ICD-10-PCS; principal; 2020-01-24)
DX: F10.230 Alcohol dependence with withdrawal, uncomplicated (principal); F14.10 Cocaine abuse, uncomplicated; F12.90 Cannabis use, unspecified, uncomplicated; R63.4 Abnormal weight loss; Z91.013 Allergy to seafood
CPT/HCPCS: 81025; U0003

== ENCOUNTER 2021-12-16 12:04 | Inpatient (IN) | payer BC ==
[2021-12-16] MEDS ORDERED: BENZOCAINE/MENTHOL (CHLORASEPTIC ) LOZENGE MM PRN (14:29)
[2021-12-16] MEDS ORDERED: METHOCARBAMOL 500 MG TABLET PO PRN (14:29)
[2021-12-16] MEDS ORDERED: LOPERAMIDE HCL 2 MG CAPSULE PO PRN (14:29)
[2021-12-16] MEDS ORDERED: MAGNESIUM CITRATE 300 ML BOTTLE PO PRN (14:29)
[2021-12-16] MEDS ORDERED: ONDANSETRON *ODT* 4 MG TABLET SL PRN (14:29)
[2021-12-16] MEDS ORDERED: MAGNESIUM HYDROX 2400MG/30ML ORAL SUSPENSION 30 ML CUP PO PRN (14:29)
[2021-12-16] MEDS ORDERED: IBUPROFEN 400 MG TABLET (FP) PO PRN (14:29)
[2021-12-16] MEDS ORDERED: ACETAMINOPHEN 325 MG TABLET (FP) PO PRN ×2 (14:29)
[2021-12-16] MEDS ORDERED: IBUPROFEN 600 MG TABLET (FP) PO PRN (14:29)
[2021-12-16] MEDS ORDERED: DICYCLOMINE HCL 10 MG CAPSULE PO PRN (14:29)
[2021-12-16] MEDS ORDERED: MAG HYDROX/AL HYDROX/SIMETH 30 ML UNIT-DOSE CUP PO PRN (14:29)
[2021-12-16] MEDS ORDERED: BISMUTH SUBSALICYLATE 262 MG/15 ML BTL PO PRN (14:29)
[2021-12-16] MEDS: hydrOXYzine PAMOATE 25 MG CAPSULE (FP) PO SCH ×2 (17:47→23:14)
[2021-12-16] MEDS: THIAMINE HCL 100 MG TABLET (FP) PO SCH (23:14)
[2021-12-16] MEDS: MELATONIN 5 MG TABLETS PO SCH (23:14)
[2021-12-17] MEDS: hydrOXYzine PAMOATE 25 MG CAPSULE (FP) PO SCH ×5 (06:17→22:36)
[2021-12-17] MEDS: PRENATAL VITAMINS W/ FOLIC ACID TABLET (FP) PO SCH (10:11)
[2021-12-17 10:45] LABS: HEMATOCRIT 28.5 % (32.4-45.2); HEMOGLOBIN 9.3 GM/dL (10.7-15.3); MCH 23.2 pg (25.7-33.7); MCHC 32.6 g/dl (32.0-36.0); MEAN PLT VOLUME 9.3 fl (7.5-11.1); PLATELET COUNT 283 10^3/uL (134-434); RBC 4.01 M/mm3 (3.60-5.2); RDW 34.9 % (11.6-15.6); WHITE BLOOD COUNT 3.5 K/mm3 (4.0-10.0)
[2021-12-17 10:49] LABS: CALCIUM 9.1 mg/dL (8.5-10.1)
[2021-12-17 10:50] LABS: ALBUMIN 3.7 g/dl (3.4-5.0); BLOOD UREA NITROGEN 24.5 mg/dL (7-18)
[2021-12-17 10:53] LABS: CREATININE 0.7 mg/dL (0.55-1.3)
[2021-12-17 10:55] LABS: BILIRUBIN,TOTAL 0.4 mg/dL (0.2-1); TOT PROT 8.2 g/dl (6.4-8.2)
[2021-12-17] MEDS: THIAMINE HCL 100 MG TABLET (FP) PO SCH (22:36)
[2021-12-17] MEDS: MELATONIN 5 MG TABLETS PO SCH (22:36)
[2021-12-18] MEDS: hydrOXYzine PAMOATE 25 MG CAPSULE (FP) PO SCH ×2 (05:36→09:47)
[2021-12-18 09:18] VITALS: BP 124/69; PULSE 102; TEMP 97.3
[2021-12-18] MEDS: PRENATAL VITAMINS W/ FOLIC ACID TABLET (FP) PO SCH (09:47)
== END 2021-12-18 09:20 | disposition home or self-care (01) | DRG 774 ==
LOC: YASAS 12:04 → Y3N 14:27 → UNDOADMIN 14:27 → UNDODISIN 12-18 09:20
PROVIDERS: ADMIT Allergy & Immunology; ATTEND Surgery
PROC: HZ2ZZZZ Detoxification Services for Substance Abuse Treatment (ICD-10-PCS; principal; 2021-12-16)
DX: F10.230 Alcohol dependence with withdrawal, uncomplicated (principal); F14.20 Cocaine dependence, uncomplicated; F12.10 Cannabis abuse, uncomplicated; F31.31 Bipolar disorder, current episode depressed, mild; I10 Essential (primary) hypertension; D64.9 Anemia, unspecified; R63.4 Abnormal weight loss
CPT/HCPCS: 36415; 80053; 85027; 86780; C9803-CS; U0003; U0005

== ENCOUNTER 2022-01-13 10:13 | Inpatient (IN) | payer BC ==
[2022-01-13 11:52] VITALS: BMI 20.2
[2022-01-13] MEDS ORDERED: MAGNESIUM HYDROX 2400MG/30ML ORAL SUSPENSION 30 ML CUP PO PRN (12:56)
[2022-01-13] MEDS ORDERED: ONDANSETRON *ODT* 4 MG TABLET SL PRN (12:56)
[2022-01-13] MEDS ORDERED: NALOXONE HCL (KLOXXADO) 8 MG SPRAY NS PRN (12:56)
[2022-01-13] MEDS ORDERED: BENZOCAINE/MENTHOL (CHLORASEPTIC ) LOZENGE MM PRN (12:56)
[2022-01-13] MEDS ORDERED: IBUPROFEN 400 MG TABLET (FP) PO PRN (12:56)
[2022-01-13] MEDS ORDERED: METHOCARBAMOL 500 MG TABLET PO PRN (12:56)
[2022-01-13] MEDS ORDERED: BISMUTH SUBSALICYLATE 262 MG/15 ML BTL PO PRN (12:56)
[2022-01-13] MEDS ORDERED: DICYCLOMINE HCL 10 MG CAPSULE PO PRN (12:56)
[2022-01-13] MEDS ORDERED: MAGNESIUM CITRATE 300 ML BOTTLE PO PRN (12:56)
[2022-01-13] MEDS ORDERED: IBUPROFEN 600 MG TABLET (FP) PO PRN (12:56)
[2022-01-13] MEDS ORDERED: chlordiazePOXIDE HCL 25 MG CAPSULE PO PRN (12:56)
[2022-01-13] MEDS ORDERED: LOPERAMIDE HCL 2 MG CAPSULE PO PRN (12:56)
[2022-01-13] MEDS ORDERED: MAG HYDROX/AL HYDROX/SIMETH 30 ML UNIT-DOSE CUP PO PRN (12:56)
[2022-01-13] MEDS ORDERED: ACETAMINOPHEN 325 MG TABLET (FP) PO PRN ×2 (12:56)
[2022-01-13] MEDS: chlordiazePOXIDE HCL 25 MG CAPSULE PO SCH ×2 (17:45→22:50)
[2022-01-13] MEDS: PRENATAL VITAMINS W/ FOLIC ACID TABLET (FP) PO SCH (18:43)
[2022-01-13] MEDS: hydrOXYzine PAMOATE 25 MG CAPSULE (FP) PO SCH ×2 (18:43→22:50)
[2022-01-13] MEDS ORDERED: THIAMINE HCL 100 MG TABLET (FP) PO SCH (22:00)
[2022-01-13] MEDS ORDERED: MELATONIN 5 MG TABLETS PO SCH (22:00)
[2022-01-14 06:13] VITALS: RESP 18
[2022-01-14] MEDS: chlordiazePOXIDE HCL 25 MG CAPSULE PO SCH ×2 (07:04→10:31)
[2022-01-14] MEDS: hydrOXYzine PAMOATE 25 MG CAPSULE (FP) PO SCH ×2 (07:07→10:31)
[2022-01-14 08:45] VITALS: BP 102/58; PULSE 61; TEMP 96.7
[2022-01-14] MEDS: PRENATAL VITAMINS W/ FOLIC ACID TABLET (FP) PO SCH (10:31)
[2022-01-14 13:45] LABS: HEMATOCRIT 28.2 % (32.4-45.2); HEMOGLOBIN 9.1 GM/dL (10.7-15.3); MCH 25.8 pg (25.7-33.7); MCHC 32.4 g/dl (32.0-36.0); MEAN CELL VOLUME 79.8 fl (80-96); MEAN PLT VOLUME 9.2 fl (7.5-11.1); PLATELET COUNT 241 10^3/uL (134-434); RBC 3.54 M/mm3 (3.60-5.2); RDW 31.2 % (11.6-15.6); WHITE BLOOD COUNT 2.9 K/mm3 (4.0-10.0)
[2022-01-14 13:52] LABS: ALBUMIN 3.6 g/dl (3.4-5.0); BLOOD UREA NITROGEN 25.9 mg/dL (7-18); CALCIUM 9.2 mg/dL (8.5-10.1)
[2022-01-14 13:55] LABS: CREATININE 0.7 mg/dL (0.55-1.3)
[2022-01-14 13:57] LABS: BILIRUBIN,TOTAL 0.4 mg/dL (0.2-1); TOT PROT 7.9 g/dl (6.4-8.2)
[2022-01-15] MEDS ORDERED: chlordiazePOXIDE HCL 25 MG CAPSULE PO SCH (05:00)
[2022-01-16] MEDS ORDERED: chlordiazePOXIDE HCL 10 MG CAPSULE PO PRN
[2022-01-16] MEDS ORDERED: chlordiazePOXIDE HCL 10 MG CAPSULE PO SCH (05:00)
[2022-01-17] MEDS ORDERED: chlordiazePOXIDE HCL 10 MG CAPSULE PO SCH (05:00)
[2022-01-18] MEDS ORDERED: chlordiazePOXIDE HCL 10 MG CAPSULE PO ONE (05:00)
== END 2022-01-14 12:06 | disposition left against medical advice (07) | DRG 770 ==
LOC: YASAS 10:13 → SUATTDRO 10:13 → Y3N 16:32
PROVIDERS: ADMIT Allergy & Immunology; ATTEND Surgery
PROC: HZ2ZZZZ Detoxification Services for Substance Abuse Treatment (ICD-10-PCS; principal; 2022-01-13)
DX: F10.230 Alcohol dependence with withdrawal, uncomplicated (principal); F11.20 Opioid dependence, uncomplicated; F14.20 Cocaine dependence, uncomplicated; F31.9 Bipolar disorder, unspecified; F41.9 Anxiety disorder, unspecified; D64.9 Anemia, unspecified; I10 Essential (primary) hypertension
CPT/HCPCS: 36415; 80053; 81025; 85027; 86780; C9803-CS; U0003; U0005

== ENCOUNTER 2022-03-07 09:22 | Inpatient (IN) | payer BC ==
[2022-03-07 10:11] VITALS: BMI 20.9
[2022-03-07] MEDS ORDERED: ONDANSETRON *ODT* 4 MG TABLET SL PRN (11:13)
[2022-03-07] MEDS ORDERED: MAGNESIUM CITRATE 300 ML BOTTLE PO PRN (11:13)
[2022-03-07] MEDS ORDERED: LOPERAMIDE HCL 2 MG CAPSULE PO PRN (11:13)
[2022-03-07] MEDS ORDERED: NICOTINE 10 MG CARTRIDGE (INHALER) IH PRN (11:13)
[2022-03-07] MEDS ORDERED: IBUPROFEN 400 MG TABLET (FP) PO PRN (11:13)
[2022-03-07] MEDS ORDERED: BENZOCAINE/MENTHOL (CHLORASEPTIC ) LOZENGE MM PRN (11:13)
[2022-03-07] MEDS ORDERED: ACETAMINOPHEN 325 MG TABLET (FP) PO PRN ×2 (11:13)
[2022-03-07] MEDS ORDERED: NALOXONE HCL (KLOXXADO) 8 MG SPRAY NS PRN (11:13)
[2022-03-07] MEDS ORDERED: MAG HYDROX/AL HYDROX/SIMETH 30 ML UNIT-DOSE CUP PO PRN (11:13)
[2022-03-07] MEDS ORDERED: MAGNESIUM HYDROX 2400MG/30ML ORAL SUSPENSION 30 ML CUP PO PRN (11:13)
[2022-03-07] MEDS ORDERED: METHOCARBAMOL 500 MG TABLET PO PRN (11:13)
[2022-03-07] MEDS ORDERED: DICYCLOMINE HCL 10 MG CAPSULE PO PRN (11:13)
[2022-03-07] MEDS ORDERED: BISMUTH SUBSALICYLATE 524 MG/30 ML PO PRN (11:13)
[2022-03-07] MEDS ORDERED: IBUPROFEN 600 MG TABLET (FP) PO PRN (11:13)
[2022-03-07] MEDS: hydrOXYzine PAMOATE 25 MG CAPSULE (FP) PO SCH ×3 (13:11→22:25)
[2022-03-07 13:29] LABS: HEMATOCRIT 26.3 % (32.4-45.2); HEMOGLOBIN 8.9 GM/dL (10.7-15.3); MCH 28.1 pg (25.7-33.7); MCHC 33.9 g/dl (32.0-36.0); MEAN PLT VOLUME 8.1 fl (7.5-11.1); PLATELET COUNT 318 10^3/uL (134-434); RBC 3.17 M/mm3 (3.60-5.2); RDW 18.2 % (11.6-15.6); WHITE BLOOD COUNT 6.4 K/mm3 (4.0-10.0)
[2022-03-07 13:52] LABS: ALBUMIN 3.6 g/dl (3.4-5.0); CALCIUM 9.2 mg/dL (8.5-10.1)
[2022-03-07 13:54] LABS: BLOOD UREA NITROGEN 17.4 mg/dL (7-18)
[2022-03-07 13:57] LABS: CREATININE 0.6 mg/dL (0.55-1.3)
[2022-03-07 13:58] LABS: BILIRUBIN,TOTAL 0.3 mg/dL (0.2-1); TOT PROT 7.9 g/dl (6.4-8.2)
[2022-03-07] MEDS ORDERED: MELATONIN 5 MG TABLETS PO SCH (22:00)
[2022-03-07] MEDS ORDERED: THIAMINE HCL 100 MG TABLET (FP) PO SCH (22:00)
[2022-03-08] MEDS: hydrOXYzine PAMOATE 25 MG CAPSULE (FP) PO SCH ×3 (05:55→13:36)
[2022-03-08] MEDS ORDERED: PRENATAL VITAMINS W/ FOLIC ACID TABLET (FP) PO SCH (10:00)
[2022-03-08] MEDS ORDERED: PNEUMOC 20-VAL CONJ-DIP CRM/PF 0.5 ML SYRINGE IM ONE (12:00)
[2022-03-08 12:53] VITALS: BP 107/70; PULSE 92; RESP 16; TEMP 98.1
== END 2022-03-08 15:53 | disposition home or self-care (01) | DRG 774 ==
LOC: YASAS 09:22 → UNDOADMIN 11:38 → Y3N 11:38 → UNDODISIN 03-08 15:53
PROVIDERS: ADMIT Allergy & Immunology; ATTEND Surgery
PROC: HZ2ZZZZ Detoxification Services for Substance Abuse Treatment (ICD-10-PCS; principal; 2022-03-07)
DX: F10.230 Alcohol dependence with withdrawal, uncomplicated (principal); F14.20 Cocaine dependence, uncomplicated; F32.A Depression, unspecified; D64.9 Anemia, unspecified; Z59.01 Sheltered homelessness
CPT/HCPCS: 36415; 80053; 81025; 85027; 86780; 90677; C9803-CS; U0003; U0005

== ENCOUNTER 2022-04-08 12:10 | Inpatient (IN) | payer BC ==
[2022-04-08 13:05] VITALS: BMI 20.6
[2022-04-08] MEDS ORDERED: NALOXONE HCL (KLOXXADO) 8 MG SPRAY NS PRN (17:36)
[2022-04-08] MEDS ORDERED: IBUPROFEN 400 MG TABLET (FP) PO PRN (17:36)
[2022-04-08] MEDS ORDERED: LOPERAMIDE HCL 2 MG CAPSULE PO PRN (17:36)
[2022-04-08] MEDS ORDERED: NICOTINE 10 MG CARTRIDGE (INHALER) IH PRN (17:36)
[2022-04-08] MEDS ORDERED: hydrOXYzine PAMOATE 25 MG CAPSULE (FP) PO PRN (17:36)
[2022-04-08] MEDS ORDERED: MAGNESIUM HYDROX 2400MG/30ML ORAL SUSPENSION 30 ML CUP PO PRN (17:36)
[2022-04-08] MEDS ORDERED: ONDANSETRON *ODT* 4 MG TABLET SL PRN (17:36)
[2022-04-08] MEDS ORDERED: ACETAMINOPHEN 325 MG TABLET (FP) PO PRN ×2 (17:36)
[2022-04-08] MEDS ORDERED: BENZOCAINE/MENTHOL (CHLORASEPTIC ) LOZENGE MM PRN (17:36)
[2022-04-08] MEDS ORDERED: BISMUTH SUBSALICYLATE 524 MG/30 ML PO PRN (17:36)
[2022-04-08] MEDS ORDERED: IBUPROFEN 600 MG TABLET (FP) PO PRN (17:36)
[2022-04-08] MEDS ORDERED: METHOCARBAMOL 500 MG TABLET PO PRN (17:36)
[2022-04-08] MEDS ORDERED: DICYCLOMINE HCL 10 MG CAPSULE PO PRN (17:36)
[2022-04-08] MEDS ORDERED: MAG HYDROX/AL HYDROX/SIMETH 30 ML UNIT-DOSE CUP PO PRN (17:36)
[2022-04-08] MEDS ORDERED: MAGNESIUM CITRATE 300 ML BOTTLE PO PRN (17:36)
[2022-04-08] MEDS: MELATONIN 5 MG TABLETS PO SCH (22:42)
[2022-04-08] MEDS: THIAMINE HCL 100 MG TABLET (FP) PO SCH (22:42)
[2022-04-09] MEDS: PRENATAL VITAMINS W/ FOLIC ACID TABLET (FP) PO SCH (11:15)
[2022-04-09] MEDS: NALTREXONE HCL 50 MG TABLET PO SCH (14:14)
[2022-04-09] MEDS: MELATONIN 5 MG TABLETS PO SCH (22:02)
[2022-04-09] MEDS: THIAMINE HCL 100 MG TABLET (FP) PO SCH (22:02)
[2022-04-10] MEDS: NALTREXONE HCL 50 MG TABLET PO SCH (10:41)
[2022-04-10] MEDS: PRENATAL VITAMINS W/ FOLIC ACID TABLET (FP) PO SCH (10:41)
[2022-04-10 13:16] VITALS: BP 106/72; PULSE 83; RESP 16; TEMP 96.8
[2022-04-12] MEDS ORDERED: NALTREXONE MICROSPHERES (VIVITROL) 380 MG DISP.SYRIN IM ONE (10:00)
== END 2022-04-10 13:31 | disposition home or self-care (01) | DRG 774 ==
LOC: YASAS 12:10 → UNDOADMIN 17:38 → Y6N 17:38
PROVIDERS: ADMIT Allergy & Immunology; ATTEND Surgery
PROC: HZ2ZZZZ Detoxification Services for Substance Abuse Treatment (ICD-10-PCS; principal; 2022-04-08)
DX: F10.230 Alcohol dependence with withdrawal, uncomplicated (principal); F14.20 Cocaine dependence, uncomplicated; F32.A Depression, unspecified; D64.9 Anemia, unspecified; I10 Essential (primary) hypertension; S99.821A Other specified injuries of right foot, initial encounter; W19.XXXA Unspecified fall, initial encounter; Y92.9 Unspecified place or not applicable; Y99.9 Unspecified external cause status
CPT/HCPCS: 81025; C9803-CS; U0003; U0005

== ENCOUNTER 2022-05-27 14:05 | Inpatient (IN) | payer BC ==
[2022-05-27 15:18] VITALS: BMI 21.6
[2022-05-27] MEDS ORDERED: MAGNESIUM HYDROX 2400MG/30ML ORAL SUSPENSION 30 ML CUP PO PRN (16:50)
[2022-05-27] MEDS ORDERED: ONDANSETRON *ODT* 4 MG TABLET SL PRN (16:50)
[2022-05-27] MEDS ORDERED: IBUPROFEN 400 MG TABLET (FP) PO PRN (16:50)
[2022-05-27] MEDS ORDERED: P-EPHED 60MG/TRIPROLIDI 2.5MG TABLET PO PRN (16:50)
[2022-05-27] MEDS ORDERED: METHOCARBAMOL 500 MG TABLET PO PRN (16:50)
[2022-05-27] MEDS ORDERED: hydrOXYzine PAMOATE 25 MG CAPSULE (FP) PO PRN (16:50)
[2022-05-27] MEDS ORDERED: BISMUTH SUBSALICYLATE 524 MG/30 ML PO PRN (16:50)
[2022-05-27] MEDS ORDERED: MAG HYDROX/AL HYDROX/SIMETH 30 ML UNIT-DOSE CUP PO PRN (16:50)
[2022-05-27] MEDS ORDERED: IBUPROFEN 600 MG TABLET (FP) PO PRN (16:50)
[2022-05-27] MEDS ORDERED: POLYETHYLENE GLYCOL (HEALTHYLAX) 3350 17 GM PACKET PO PRN (16:50)
[2022-05-27] MEDS ORDERED: DICYCLOMINE HCL 10 MG CAPSULE PO PRN (16:50)
[2022-05-27] MEDS ORDERED: guaiFENesin 200 MG/10 ML 10 ML UNIT-DOSE CUPS PO PRN (16:50)
[2022-05-27] MEDS ORDERED: BENZOCAINE/MENTHOL (CHLORASEPTIC ) LOZENGE MM PRN (16:50)
[2022-05-27] MEDS ORDERED: LOPERAMIDE HCL 2 MG CAPSULE PO PRN (16:50)
[2022-05-27] MEDS ORDERED: ACETAMINOPHEN 325 MG TABLET (FP) PO PRN ×2 (16:50)
[2022-05-27] MEDS: THIAMINE HCL 100 MG TABLET (FP) PO SCH (22:26)
[2022-05-27] MEDS: MELATONIN 5 MG TABLETS PO SCH (22:26)
[2022-05-28] MEDS: PRENATAL VITAMINS W/ FOLIC ACID TABLET (FP) PO SCH (09:42)
[2022-05-28] MEDS: THIAMINE HCL 100 MG TABLET (FP) PO SCH (23:09)
[2022-05-28] MEDS: MELATONIN 5 MG TABLETS PO SCH (23:09)
[2022-05-29] MEDS ORDERED: diazePAM 5 MG TABLET PO PRN (09:24)
[2022-05-29] MEDS: PRENATAL VITAMINS W/ FOLIC ACID TABLET (FP) PO SCH (11:07)
[2022-05-29] MEDS: diazePAM 5 MG TABLET PO SCH ×3 (11:08→22:48)
[2022-05-29] MEDS: THIAMINE HCL 100 MG TABLET (FP) PO SCH (22:48)
[2022-05-29] MEDS: MELATONIN 5 MG TABLETS PO SCH (22:48)
[2022-05-30] MEDS: diazePAM 5 MG TABLET PO SCH ×2 (07:22→10:39)
[2022-05-30] MEDS: PRENATAL VITAMINS W/ FOLIC ACID TABLET (FP) PO SCH (10:39)
[2022-05-30 10:45] LABS: HEMATOCRIT 29.6 % (32.4-45.2); HEMOGLOBIN 9.5 GM/dL (10.7-15.3); MCH 24.6 pg (25.7-33.7); MCHC 31.9 g/dl (32.0-36.0); MEAN CELL VOLUME 77.2 fl (80-96); MEAN PLT VOLUME 8.3 fl (7.5-11.1); PLATELET COUNT 358 10^3/uL (134-434); RBC 3.84 M/mm3 (3.60-5.2); WHITE BLOOD COUNT 5.2 K/mm3 (4.0-10.0)
[2022-05-30 11:23] LABS: ALBUMIN 3.2 g/dl (3.4-5.0); BILIRUBIN,TOTAL 0.2 mg/dL (0.2-1); BLOOD UREA NITROGEN 16.8 mg/dL (7-18); CALCIUM 8.8 mg/dL (8.5-10.1); CREATININE 0.7 mg/dL (0.55-1.3); TOT PROT 7.2 g/dl (6.4-8.2)
[2022-05-30 13:44] VITALS: BP 112/73; PULSE 95; RESP 18; TEMP 97.5
[2022-05-31] MEDS ORDERED: diazePAM 5 MG TABLET PO SCH (06:00)
[2022-05-31] MEDS ORDERED: FERROUS SO4 325 MG TABLET (FP) PO SCH (10:00)
[2022-06-01] MEDS ORDERED: diazePAM 5 MG TABLET PO SCH (06:00)
[2022-06-02] MEDS ORDERED: diazePAM 5 MG TABLET PO ONE (06:00)
== END 2022-05-30 15:07 | disposition left against medical advice (07) | DRG 770 ==
LOC: YASAS 14:05 → Y3N 19:06 → UNDOADMIN 19:06 → UNDODISIN 05-30 15:07
PROVIDERS: ADMIT Allergy & Immunology; ATTEND Surgery
PROC: HZ2ZZZZ Detoxification Services for Substance Abuse Treatment (ICD-10-PCS; principal; 2022-05-27)
DX: F10.230 Alcohol dependence with withdrawal, uncomplicated (principal); F14.20 Cocaine dependence, uncomplicated; F32.A Depression, unspecified; D64.9 Anemia, unspecified; I10 Essential (primary) hypertension
CPT/HCPCS: 36415; 80053; 81025; 85027; 86780; 87811; C9803-CS; U0003; U0005

== ENCOUNTER 2022-07-08 09:10 | Inpatient (IN) | payer BC ==
[2022-07-08 09:47] VITALS: BMI 21.6
[2022-07-08] MEDS ORDERED: IBUPROFEN 400 MG TABLET (FP) PO PRN (10:29)
[2022-07-08] MEDS ORDERED: LOPERAMIDE HCL 2 MG CAPSULE PO PRN (10:29)
[2022-07-08] MEDS ORDERED: IBUPROFEN 600 MG TABLET (FP) PO PRN (10:29)
[2022-07-08] MEDS ORDERED: POLYETHYLENE GLYCOL (HEALTHYLAX) 3350 17 GM PACKET PO PRN (10:29)
[2022-07-08] MEDS ORDERED: MAGNESIUM HYDROX 2400MG/30ML ORAL SUSPENSION 30 ML CUP PO PRN (10:29)
[2022-07-08] MEDS ORDERED: ONDANSETRON *ODT* 4 MG TABLET SL PRN (10:29)
[2022-07-08] MEDS ORDERED: NICOTINE 10 MG CARTRIDGE (INHALER) IH PRN (10:29)
[2022-07-08] MEDS ORDERED: NALOXONE HCL (KLOXXADO) 8 MG SPRAY NS PRN (10:29)
[2022-07-08] MEDS ORDERED: MAG HYDROX/AL HYDROX/SIMETH 30 ML UNIT-DOSE CUP PO PRN (10:29)
[2022-07-08] MEDS ORDERED: BISMUTH SUBSALICYLATE 262 MG/15 ML BTL PO PRN (10:29)
[2022-07-08] MEDS ORDERED: BENZOCAINE/MENTHOL (CHLORASEPTIC ) LOZENGE MM PRN (10:29)
[2022-07-08] MEDS ORDERED: DICYCLOMINE HCL 10 MG CAPSULE PO PRN (10:29)
[2022-07-08] MEDS ORDERED: hydrOXYzine PAMOATE 25 MG CAPSULE (FP) PO PRN (10:29)
[2022-07-08] MEDS ORDERED: ACETAMINOPHEN 325 MG TABLET (FP) PO PRN ×2 (10:29)
[2022-07-08] MEDS ORDERED: METHOCARBAMOL 500 MG TABLET PO PRN (10:29)
[2022-07-08] MEDS ORDERED: chlordiazePOXIDE HCL 25 MG CAPSULE PO PRN (10:35)
[2022-07-08] MEDS ORDERED: LORazepam 1 MG TABLET PO PRN (12:11)
[2022-07-08] MEDS: BACITRACIN 0.9 GM PACKET TP SCH ×2 (12:55→22:16)
[2022-07-08] MEDS ORDERED: chlordiazePOXIDE HCL 25 MG CAPSULE PO SCH (17:00)
[2022-07-08] MEDS: LORazepam 2 MG TABLET PO SCH ×2 (17:34→22:56)
[2022-07-08] MEDS: MELATONIN 5 MG TABLETS PO SCH (22:17)
[2022-07-08] MEDS: THIAMINE HCL 100 MG TABLET (FP) PO SCH (22:17)
[2022-07-09] MEDS: LORazepam 2 MG TABLET PO SCH (06:14)
[2022-07-09 10:22] LABS: HEMATOCRIT 28.5 % (32.4-45.2); MCH 24.8 pg (25.7-33.7); MCHC 31.4 g/dl (32.0-36.0); MEAN PLT VOLUME 8.4 fl (7.5-11.1); PLATELET COUNT 317 10^3/uL (134-434); RBC 3.61 M/mm3 (3.60-5.2); RDW 22.2 % (11.6-15.6); WHITE BLOOD COUNT 5.3 K/mm3 (4.0-10.0)
[2022-07-09] MEDS: PRENATAL VITAMINS W/ FOLIC ACID TABLET (FP) PO SCH (10:34)
[2022-07-09] MEDS: BACITRACIN 0.9 GM PACKET TP SCH ×2 (10:34→22:49)
[2022-07-09 11:07] LABS: CALCIUM 8.8 mg/dL (8.5-10.1)
[2022-07-09 11:08] LABS: ALBUMIN 3.2 g/dl (3.4-5.0); BLOOD UREA NITROGEN 17.8 mg/dL (7-18)
[2022-07-09 11:10] LABS: CREATININE 0.5 mg/dL (0.55-1.3)
[2022-07-09 11:12] LABS: BILIRUBIN,TOTAL 0.2 mg/dL (0.2-1); TOT PROT 6.8 g/dl (6.4-8.2)
[2022-07-09] MEDS: diazePAM 5 MG TABLET PO SCH ×2 (16:42→22:48)
[2022-07-09] MEDS: MELATONIN 5 MG TABLETS PO SCH (22:48)
[2022-07-09] MEDS: THIAMINE HCL 100 MG TABLET (FP) PO SCH (22:48)
[2022-07-10] MEDS ORDERED: LORazepam 1 MG TABLET PO SCH (05:00)
[2022-07-10] MEDS ORDERED: chlordiazePOXIDE HCL 25 MG CAPSULE PO SCH (05:00)
[2022-07-10] MEDS: diazePAM 5 MG TABLET PO SCH ×3 (05:19→22:02)
[2022-07-10] MEDS: BACITRACIN 0.9 GM PACKET TP SCH ×2 (10:41→22:01)
[2022-07-10] MEDS: PRENATAL VITAMINS W/ FOLIC ACID TABLET (FP) PO SCH (10:41)
[2022-07-10 21:16] VITALS: RESP 16
[2022-07-10] MEDS: MELATONIN 5 MG TABLETS PO SCH (22:01)
[2022-07-10] MEDS: THIAMINE HCL 100 MG TABLET (FP) PO SCH (22:02)
[2022-07-11] MEDS ORDERED: chlordiazePOXIDE HCL 10 MG CAPSULE PO PRN
[2022-07-11] MEDS ORDERED: LORazepam 0.5 MG TABLET PO PRN
[2022-07-11] MEDS ORDERED: chlordiazePOXIDE HCL 10 MG CAPSULE PO SCH (05:00)
[2022-07-11] MEDS ORDERED: LORazepam 0.5 MG TABLET PO SCH (05:00)
[2022-07-11] MEDS ORDERED: diazePAM 5 MG TABLET PO SCH (06:00)
[2022-07-11 06:55] VITALS: BP 95/60; PULSE 80; TEMP 97.7
[2022-07-11] MEDS: BACITRACIN 0.9 GM PACKET TP SCH (10:43)
[2022-07-11] MEDS: PRENATAL VITAMINS W/ FOLIC ACID TABLET (FP) PO SCH (10:43)
[2022-07-12] MEDS ORDERED: chlordiazePOXIDE HCL 10 MG CAPSULE PO SCH (05:00)
[2022-07-12] MEDS ORDERED: LORazepam 0.5 MG TABLET PO ONE (05:00)
[2022-07-12] MEDS ORDERED: diazePAM 5 MG TABLET PO ONE (06:00)
[2022-07-13] MEDS ORDERED: chlordiazePOXIDE HCL 10 MG CAPSULE PO ONE (05:00)
== END 2022-07-11 09:30 | disposition left against medical advice (07) | DRG 770 ==
LOC: YASAS 09:10 → Y6N 10:46
PROVIDERS: ADMIT Allergy & Immunology; ATTEND Surgery
PROC: HZ2ZZZZ Detoxification Services for Substance Abuse Treatment (ICD-10-PCS; principal; 2022-07-08)
DX: F10.230 Alcohol dependence with withdrawal, uncomplicated (principal); F14.20 Cocaine dependence, uncomplicated; F31.9 Bipolar disorder, unspecified; F41.9 Anxiety disorder, unspecified; D64.9 Anemia, unspecified; I10 Essential (primary) hypertension
CPT/HCPCS: 36415; 80053; 81025; 82607; 82746; 83540; 83550; 85027; 86780; 87811; C9803-CS; U0003; U0005

== ENCOUNTER 2022-08-06 11:11 | Inpatient (IN) | payer BC ==
[2022-08-06] MEDS ORDERED: IBUPROFEN 600 MG TABLET (FP) PO PRN (15:22)
[2022-08-06] MEDS ORDERED: NICOTINE 10 MG CARTRIDGE (INHALER) IH PRN (15:22)
[2022-08-06] MEDS ORDERED: NICOTINE 7 MG/24 HOURS TOPICAL PATCH TD PRN (15:22)
[2022-08-06] MEDS ORDERED: BENZOCAINE/MENTHOL (CHLORASEPTIC ) LOZENGE MM PRN (15:22)
[2022-08-06] MEDS ORDERED: ONDANSETRON *ODT* 4 MG TABLET SL PRN (15:22)
[2022-08-06] MEDS ORDERED: MAG HYDROX/AL HYDROX/SIMETH 30 ML UNIT-DOSE CUP PO PRN (15:22)
[2022-08-06] MEDS ORDERED: IBUPROFEN 400 MG TABLET (FP) PO PRN (15:22)
[2022-08-06] MEDS ORDERED: NICOTINE POLACRILEX 2 MG GUM BUC PRN (15:22)
[2022-08-06] MEDS ORDERED: ACETAMINOPHEN 325 MG TABLET (FP) PO PRN ×2 (15:22)
[2022-08-06] MEDS ORDERED: MAGNESIUM HYDROX 2400MG/30ML ORAL SUSPENSION 30 ML CUP PO PRN (15:22)
[2022-08-06] MEDS ORDERED: POLYETHYLENE GLYCOL (HEALTHYLAX) 3350 17 GM PACKET PO PRN (15:22)
[2022-08-06] MEDS ORDERED: LORazepam 1 MG TABLET PO PRN (15:22)
[2022-08-06] MEDS ORDERED: DICYCLOMINE HCL 10 MG CAPSULE PO PRN (15:22)
[2022-08-06] MEDS ORDERED: LOPERAMIDE HCL 2 MG CAPSULE PO PRN (15:22)
[2022-08-06] MEDS ORDERED: BISMUTH SUBSALICYLATE 524 MG/30 ML PO PRN (15:22)
[2022-08-06] MEDS: LORazepam 1 MG TABLET PO SCH ×2 (17:30→22:38)
[2022-08-06] MEDS: MELATONIN 5 MG TABLETS PO SCH (22:36)
[2022-08-06] MEDS: THIAMINE HCL 100 MG TABLET (FP) PO SCH (22:39)
[2022-08-07] MEDS: LORazepam 1 MG TABLET PO SCH ×5 (06:00→22:45)
[2022-08-07] MEDS: PRENATAL VITAMINS W/ FOLIC ACID TABLET (FP) PO SCH (10:28)
[2022-08-07 13:14] LABS: HEMATOCRIT 28.6 % (32.4-45.2); HEMOGLOBIN 9.3 GM/dL (10.7-15.3); MCH 25.6 pg (25.7-33.7); MCHC 32.5 g/dl (32.0-36.0); MEAN CELL VOLUME 78.7 fl (80-96); MEAN PLT VOLUME 8.1 fl (7.5-11.1); PLATELET COUNT 374 10^3/uL (134-434); RBC 3.64 M/mm3 (3.60-5.2); RDW 19.4 % (11.6-15.6); WHITE BLOOD COUNT 6.1 K/mm3 (4.0-10.0)
[2022-08-07 13:33] LABS: ALBUMIN 3.5 g/dl (3.4-5.0); BLOOD UREA NITROGEN 18.7 mg/dL (7-18); CALCIUM 8.8 mg/dL (8.5-10.1)
[2022-08-07 13:37] LABS: CREATININE 0.7 mg/dL (0.55-1.3)
[2022-08-07 13:38] LABS: BILIRUBIN,TOTAL 0.5 mg/dL (0.2-1); TOT PROT 7.7 g/dl (6.4-8.2)
[2022-08-07] MEDS: MELATONIN 5 MG TABLETS PO SCH ×2 (22:44→22:48)
[2022-08-07] MEDS: THIAMINE HCL 100 MG TABLET (FP) PO SCH (22:44)
[2022-08-08] MEDS ORDERED: LORazepam 0.5 MG TABLET PO PRN
[2022-08-08] MEDS: LORazepam 0.5 MG TABLET PO SCH ×4 (06:40→22:28)
[2022-08-08] MEDS: PRENATAL VITAMINS W/ FOLIC ACID TABLET (FP) PO SCH (10:41)
[2022-08-08] MEDS: MELATONIN 5 MG TABLETS PO SCH (22:28)
[2022-08-08] MEDS: THIAMINE HCL 100 MG TABLET (FP) PO SCH (22:28)
[2022-08-09] MEDS ORDERED: LORazepam 0.5 MG TABLET PO ONE (05:00)
[2022-08-09 07:12] VITALS: BP 112/68; PULSE 83; RESP 16; TEMP 97.3
== END 2022-08-09 09:47 | disposition home or self-care (01) | DRG 774 ==
LOC: YASAS 11:11 → Y3N 15:40
PROVIDERS: ADMIT Allergy & Immunology; ATTEND Surgery
PROC: HZ2ZZZZ Detoxification Services for Substance Abuse Treatment (ICD-10-PCS; principal; 2022-08-06)
DX: F10.230 Alcohol dependence with withdrawal, uncomplicated (principal); F14.20 Cocaine dependence, uncomplicated; F31.9 Bipolar disorder, unspecified; I10 Essential (primary) hypertension; R63.4 Abnormal weight loss; Z68.20 Body mass index [BMI] 20.0-20.9, adult; Z86.2 Personal history of diseases of the blood and blood-forming organs and certain disorders involving the immune mechanism
CPT/HCPCS: 36415; 80053; 85027; 86780; 87811; C9803-CS; U0003; U0005

== ENCOUNTER 2022-08-31 11:05 | Inpatient (IN) | payer BC ==
[2022-08-31 12:50] VITALS: BMI 20.7
[2022-08-31] MEDS ORDERED: hydrOXYzine PAMOATE 25 MG CAPSULE (FP) PO PRN (15:40)
[2022-08-31] MEDS ORDERED: IBUPROFEN 600 MG TABLET (FP) PO PRN (15:40)
[2022-08-31] MEDS ORDERED: MAG HYDROX/AL HYDROX/SIMETH 30 ML UNIT-DOSE CUP PO PRN (15:40)
[2022-08-31] MEDS ORDERED: BENZOCAINE/MENTHOL (CHLORASEPTIC ) LOZENGE MM PRN (15:40)
[2022-08-31] MEDS ORDERED: diazePAM 5 MG TABLET PO PRN (15:40)
[2022-08-31] MEDS ORDERED: LOPERAMIDE HCL 2 MG CAPSULE PO PRN (15:40)
[2022-08-31] MEDS ORDERED: POLYETHYLENE GLYCOL (HEALTHYLAX) 3350 17 GM PACKET PO PRN (15:40)
[2022-08-31] MEDS ORDERED: DICYCLOMINE HCL 10 MG CAPSULE PO PRN (15:40)
[2022-08-31] MEDS ORDERED: ONDANSETRON *ODT* 4 MG TABLET SL PRN (15:40)
[2022-08-31] MEDS ORDERED: NICOTINE 10 MG CARTRIDGE (INHALER) IH PRN (15:40)
[2022-08-31] MEDS ORDERED: MAGNESIUM HYDROX 2400MG/30ML ORAL SUSPENSION 30 ML CUP PO PRN (15:40)
[2022-08-31] MEDS ORDERED: BISMUTH SUBSALICYLATE 524 MG/30 ML PO PRN (15:40)
[2022-08-31] MEDS ORDERED: METHOCARBAMOL 500 MG TABLET PO PRN (15:40)
[2022-08-31] MEDS ORDERED: ACETAMINOPHEN 325 MG TABLET (FP) PO PRN ×2 (15:40)
[2022-08-31] MEDS ORDERED: IBUPROFEN 400 MG TABLET (FP) PO PRN (15:40)
[2022-08-31] MEDS ORDERED: diazePAM 5 MG TABLET ONE (16:48)
[2022-08-31] MEDS: diazePAM 5 MG TABLET PO SCH ×2 (19:02→22:55)
[2022-08-31] MEDS: MELATONIN 5 MG TABLETS PO SCH (22:54)
[2022-08-31] MEDS: THIAMINE HCL 100 MG TABLET (FP) PO SCH (22:55)
[2022-09-01] MEDS: diazePAM 5 MG TABLET PO SCH ×4 (05:40→22:28)
[2022-09-01] MEDS: PRENATAL VITAMINS W/ FOLIC ACID TABLET (FP) PO SCH (10:25)
[2022-09-01] MEDS: MELATONIN 5 MG TABLETS PO SCH (22:28)
[2022-09-01] MEDS: THIAMINE HCL 100 MG TABLET (FP) PO SCH (22:28)
[2022-09-02] MEDS: diazePAM 5 MG TABLET PO SCH ×3 (06:09→22:29)
[2022-09-02] MEDS: PRENATAL VITAMINS W/ FOLIC ACID TABLET (FP) PO SCH (10:33)
[2022-09-02] MEDS: THIAMINE HCL 100 MG TABLET (FP) PO SCH (22:27)
[2022-09-02] MEDS: MELATONIN 5 MG TABLETS PO SCH (22:27)
[2022-09-03] MEDS: diazePAM 5 MG TABLET PO SCH ×2 (06:06→17:44)
[2022-09-03] MEDS: PRENATAL VITAMINS W/ FOLIC ACID TABLET (FP) PO SCH (10:43)
[2022-09-03 21:30] VITALS: RESP 16
[2022-09-03] MEDS: MELATONIN 5 MG TABLETS PO SCH (21:59)
[2022-09-03] MEDS: THIAMINE HCL 100 MG TABLET (FP) PO SCH (21:59)
[2022-09-04] MEDS ORDERED: diazePAM 5 MG TABLET PO ONE (06:00)
[2022-09-04 06:05] VITALS: BP 112/72; PULSE 74; TEMP 96.9
[2022-09-04] MEDS: PRENATAL VITAMINS W/ FOLIC ACID TABLET (FP) PO SCH (09:43)
== END 2022-09-04 09:36 | disposition home or self-care (01) | DRG 774 ==
LOC: YASAS 11:05 → Y6N 15:32
PROVIDERS: ADMIT Allergy & Immunology; ATTEND Surgery
PROC: HZ2ZZZZ Detoxification Services for Substance Abuse Treatment (ICD-10-PCS; principal; 2022-08-31)
DX: F10.230 Alcohol dependence with withdrawal, uncomplicated (principal); F14.20 Cocaine dependence, uncomplicated; F13.20 Sedative, hypnotic or anxiolytic dependence, uncomplicated; F31.31 Bipolar disorder, current episode depressed, mild; D64.9 Anemia, unspecified; R63.4 Abnormal weight loss; Z68.20 Body mass index [BMI] 20.0-20.9, adult; Z59.00 Homelessness unspecified; Z56.0 Unemployment, unspecified
CPT/HCPCS: 81025; C9803-CS; U0003; U0005

== ENCOUNTER 2022-10-18 10:43 | Inpatient (IN) | payer BC ==
[2022-10-18 12:00] VITALS: BMI 20.5
[2022-10-18] MEDS ORDERED: MAG HYDROX/AL HYDROX/SIMETH 30 ML UNIT-DOSE CUP PO PRN (12:19)
[2022-10-18] MEDS ORDERED: DICYCLOMINE HCL 10 MG CAPSULE PO PRN (12:19)
[2022-10-18] MEDS ORDERED: IBUPROFEN 400 MG TABLET (FP) PO PRN (12:19)
[2022-10-18] MEDS ORDERED: hydrOXYzine PAMOATE 25 MG CAPSULE (FP) PO PRN (12:19)
[2022-10-18] MEDS ORDERED: guaiFENesin 600 MG TABLET.ER (FP) PO PRN (12:19)
[2022-10-18] MEDS ORDERED: NALOXONE HCL (KLOXXADO) 8 MG SPRAY NS PRN (12:19)
[2022-10-18] MEDS ORDERED: ONDANSETRON *ODT* 4 MG TABLET SL PRN (12:19)
[2022-10-18] MEDS ORDERED: POLYETHYLENE GLYCOL (HEALTHYLAX) 3350 17 GM PACKET PO PRN (12:19)
[2022-10-18] MEDS ORDERED: METHOCARBAMOL 500 MG TABLET PO PRN (12:19)
[2022-10-18] MEDS ORDERED: BENZOCAINE/MENTHOL (CHLORASEPTIC ) LOZENGE MM PRN (12:19)
[2022-10-18] MEDS ORDERED: ACETAMINOPHEN 325 MG TABLET (FP) PO PRN (12:19)
[2022-10-18] MEDS ORDERED: LOPERAMIDE HCL 2 MG CAPSULE PO PRN (12:19)
[2022-10-18] MEDS ORDERED: NALOXONE HCL 0.4 MG/ML VIAL IM PRN (12:19)
[2022-10-18] MEDS ORDERED: MAGNESIUM HYDROX 2400MG/30ML ORAL SUSPENSION 30 ML CUP PO PRN (12:19)
[2022-10-18] MEDS ORDERED: BISMUTH SUBSALICYLATE 524 MG/30 ML PO PRN (12:19)
[2022-10-18] MEDS ORDERED: BENZONATATE 200 MG CAPSULE PO PRN (12:19)
[2022-10-18] MEDS: THIAMINE HCL 100 MG TABLET (FP) PO SCH (23:26)
[2022-10-18] MEDS: MELATONIN 5 MG TABLETS PO SCH (23:26)
[2022-10-19] MEDS: PRENATAL VITAMINS W/ FOLIC ACID TABLET (FP) PO SCH (10:20)
[2022-10-19] MEDS ORDERED: diazePAM 5 MG TABLET PO PRN (10:54)
[2022-10-19] MEDS ORDERED: diazePAM 5 MG TABLET PO SCH (11:30)
[2022-10-19] MEDS: IBUPROFEN 600 MG TABLET (FP) PO PRN (15:17)
[2022-10-19] MEDS: THIAMINE HCL 100 MG TABLET (FP) PO SCH (22:42)
[2022-10-19] MEDS: MELATONIN 5 MG TABLETS PO SCH (22:42)
[2022-10-20] MEDS: IBUPROFEN 600 MG TABLET (FP) PO PRN ×2 (03:55→11:16)
[2022-10-20] MEDS: PRENATAL VITAMINS W/ FOLIC ACID TABLET (FP) PO SCH (10:38)
[2022-10-20] MEDS ORDERED: CLINDAMYCIN HCL 150 MG CAPSULE (FP) PO SCH (12:00)
[2022-10-20 12:48] VITALS: BP 138/78; PULSE 101; RESP 20; TEMP 97.3
[2022-10-21] MEDS ORDERED: diazePAM 5 MG TABLET PO SCH (06:00)
[2022-10-22] MEDS ORDERED: diazePAM 5 MG TABLET PO SCH (06:00)
[2022-10-23] MEDS ORDERED: diazePAM 5 MG TABLET PO ONE (06:00)
== END 2022-10-20 13:45 | disposition home or self-care (01) | DRG 774 ==
LOC: YASAS 10:43 → UNDOADMIN 12:46 → Y6N 12:46 → UNDODISIN 10-20 13:45
PROVIDERS: ADMIT Allergy & Immunology; ATTEND Surgery
PROC: HZ2ZZZZ Detoxification Services for Substance Abuse Treatment (ICD-10-PCS; principal; 2022-10-18)
DX: F14.20 Cocaine dependence, uncomplicated (principal); F10.20 Alcohol dependence, uncomplicated; F31.9 Bipolar disorder, unspecified; F41.9 Anxiety disorder, unspecified; I10 Essential (primary) hypertension; K04.7 Periapical abscess without sinus
CPT/HCPCS: 81025; 87811; C9803-CS; U0003; U0005

== ENCOUNTER 2022-11-26 09:54 | Inpatient (IN) | payer BC ==
[2022-11-26 10:10] VITALS: BMI 20.9
[2022-11-26] MEDS ORDERED: ONDANSETRON *ODT* 4 MG TABLET SL PRN (11:38)
[2022-11-26] MEDS ORDERED: BISMUTH SUBSALICYLATE 262 MG/15 ML BTL PO PRN (11:38)
[2022-11-26] MEDS ORDERED: guaiFENesin 600 MG TABLET.ER (FP) PO PRN (11:38)
[2022-11-26] MEDS ORDERED: MAGNESIUM HYDROX 2400MG/30ML ORAL SUSPENSION 30 ML CUP PO PRN (11:38)
[2022-11-26] MEDS ORDERED: MAG HYDROX/AL HYDROX/SIMETH 30 ML UNIT-DOSE CUP PO PRN (11:38)
[2022-11-26] MEDS ORDERED: POLYETHYLENE GLYCOL (HEALTHYLAX) 3350 17 GM PACKET PO PRN (11:38)
[2022-11-26] MEDS ORDERED: NALOXONE HCL 0.4 MG/ML VIAL IM PRN (11:38)
[2022-11-26] MEDS ORDERED: BENZONATATE 200 MG CAPSULE PO PRN (11:38)
[2022-11-26] MEDS ORDERED: hydrOXYzine PAMOATE 25 MG CAPSULE (FP) PO PRN (11:38)
[2022-11-26] MEDS ORDERED: DICYCLOMINE HCL 10 MG CAPSULE PO PRN (11:38)
[2022-11-26] MEDS ORDERED: LORazepam 1 MG TABLET PO PRN (11:38)
[2022-11-26] MEDS ORDERED: ACETAMINOPHEN 325 MG TABLET (FP) PO PRN (11:38)
[2022-11-26] MEDS ORDERED: NALOXONE HCL (KLOXXADO) 8 MG SPRAY NS PRN (11:38)
[2022-11-26] MEDS ORDERED: BENZOCAINE/MENTHOL (CHLORASEPTIC ) LOZENGE MM PRN (11:38)
[2022-11-26] MEDS ORDERED: IBUPROFEN 600 MG TABLET (FP) PO PRN (11:38)
[2022-11-26] MEDS ORDERED: LOPERAMIDE HCL 2 MG CAPSULE PO PRN (11:38)
[2022-11-26] MEDS ORDERED: IBUPROFEN 400 MG TABLET (FP) PO PRN (11:38)
[2022-11-26] MEDS ORDERED: METHOCARBAMOL 500 MG TABLET PO PRN (11:38)
[2022-11-26] MEDS ORDERED: PRENATAL VITAMINS W/ FOLIC ACID TABLET (FP) PO ONE (13:45)
[2022-11-26] MEDS: PRENATAL VITAMINS W/ FOLIC ACID TABLET (FP) PO SCH (13:46)
[2022-11-26 15:19] LABS: HEMATOCRIT 28.6 % (32.4-45.2); HEMOGLOBIN 9.1 GM/dL (10.7-15.3); MCH 22.7 pg (25.7-33.7); MCHC 31.7 g/dl (32.0-36.0); MEAN CELL VOLUME 71.8 fl (80-96); MEAN PLT VOLUME 8.7 fl (7.5-11.1); PLATELET COUNT 334 10^3/uL (134-434); RBC 3.98 M/mm3 (3.60-5.2); RDW 20.2 % (11.6-15.6); WHITE BLOOD COUNT 5.8 K/mm3 (4.0-10.0)
[2022-11-26 15:45] LABS: BLOOD UREA NITROGEN 23.3 mg/dL (7-18); CALCIUM 9.1 mg/dL (8.5-10.1)
[2022-11-26 15:46] LABS: ALBUMIN 3.6 g/dl (3.4-5.0)
[2022-11-26 15:49] LABS: CREATININE 0.6 mg/dL (0.55-1.3)
[2022-11-26 15:50] LABS: BILIRUBIN,TOTAL 0.6 mg/dL (0.2-1); TOT PROT 7.9 g/dl (6.4-8.2)
[2022-11-26] MEDS: LORazepam 2 MG TABLET PO SCH ×2 (17:23→22:28)
[2022-11-26] MEDS: QUEtiapine FUMARATE 50 MG TABLET PO SCH (22:28)
[2022-11-26] MEDS: THIAMINE HCL 100 MG TABLET (FP) PO SCH (22:28)
[2022-11-26] MEDS: MELATONIN 5 MG TABLETS PO SCH (22:28)
[2022-11-27] MEDS: LORazepam 2 MG TABLET PO SCH ×4 (05:46→23:11)
[2022-11-27] MEDS: PRENATAL VITAMINS W/ FOLIC ACID TABLET (FP) PO SCH (10:18)
[2022-11-27] MEDS: LACTULOSE 20 GM/30 ML UDC (FOR ORAL USE ONLY) PO SCH ×3 (13:57→22:45)
[2022-11-27] MEDS: MELATONIN 5 MG TABLETS PO SCH (22:46)
[2022-11-27] MEDS: QUEtiapine FUMARATE 50 MG TABLET PO SCH (22:46)
[2022-11-27] MEDS: THIAMINE HCL 100 MG TABLET (FP) PO SCH (22:46)
[2022-11-28] MEDS: LORazepam 1 MG TABLET PO SCH ×2 (06:00→10:03)
[2022-11-28 08:55] VITALS: BP 104/73; PULSE 94; RESP 18; TEMP 97.3
[2022-11-28] MEDS: PRENATAL VITAMINS W/ FOLIC ACID TABLET (FP) PO SCH (10:03)
[2022-11-28] MEDS: LACTULOSE 20 GM/30 ML UDC (FOR ORAL USE ONLY) PO SCH (10:03)
[2022-11-29] MEDS ORDERED: LORazepam 0.5 MG TABLET PO PRN
[2022-11-29] MEDS ORDERED: LORazepam 0.5 MG TABLET PO SCH (05:00)
[2022-11-30] MEDS ORDERED: LORazepam 0.5 MG TABLET PO ONE (05:00)
== END 2022-11-28 11:02 | disposition home or self-care (01) | DRG 774 ==
LOC: YASAS 09:54 → Y3N 11:54
PROVIDERS: ADMIT Allergy & Immunology; ATTEND Surgery
PROC: HZ2ZZZZ Detoxification Services for Substance Abuse Treatment (ICD-10-PCS; principal; 2022-11-26)
DX: F10.230 Alcohol dependence with withdrawal, uncomplicated (principal); F14.20 Cocaine dependence, uncomplicated; F31.9 Bipolar disorder, unspecified; F19.24 Other psychoactive substance dependence with psychoactive substance-induced mood disorder; F41.9 Anxiety disorder, unspecified; E72.20 Disorder of urea cycle metabolism, unspecified; I10 Essential (primary) hypertension; Z86.2 Personal history of diseases of the blood and blood-forming organs and certain disorders involving the immune mechanism; Z56.0 Unemployment, unspecified; Z59.01 Sheltered homelessness; Z91.199 Patient's noncompliance with other medical treatment and regimen due to unspecified reason
CPT/HCPCS: 36415; 80053; 81025; 82140; 85027; 86780; 87635; 87811

== ENCOUNTER 2023-01-28 09:32 | Inpatient (IN) | payer BC ==
[2023-01-28] MEDS ORDERED: ACETAMINOPHEN 325 MG TABLET (FP) PO PRN (10:27)
[2023-01-28] MEDS ORDERED: MAGNESIUM HYDROX 2400MG/30ML ORAL SUSPENSION 30 ML CUP PO PRN (10:27)
[2023-01-28] MEDS ORDERED: IBUPROFEN 400 MG TABLET (FP) PO PRN (10:27)
[2023-01-28] MEDS ORDERED: hydrOXYzine PAMOATE 25 MG CAPSULE (FP) PO PRN (10:27)
[2023-01-28] MEDS ORDERED: LOPERAMIDE HCL 2 MG CAPSULE PO PRN (10:27)
[2023-01-28] MEDS ORDERED: NALOXONE HCL (KLOXXADO) 8 MG SPRAY NS PRN (10:27)
[2023-01-28] MEDS ORDERED: DICYCLOMINE HCL 10 MG CAPSULE PO PRN (10:27)
[2023-01-28] MEDS ORDERED: ONDANSETRON *ODT* 4 MG TABLET SL PRN (10:27)
[2023-01-28] MEDS ORDERED: BENZONATATE 200 MG CAPSULE PO PRN (10:27)
[2023-01-28] MEDS ORDERED: guaiFENesin 600 MG TABLET.ER (FP) PO PRN (10:27)
[2023-01-28] MEDS ORDERED: NALOXONE HCL 0.4 MG/ML VIAL IM PRN (10:27)
[2023-01-28] MEDS ORDERED: POLYETHYLENE GLYCOL (HEALTHYLAX) 3350 17 GM PACKET PO PRN (10:27)
[2023-01-28] MEDS ORDERED: BENZOCAINE/MENTHOL (CHLORASEPTIC ) LOZENGE MM PRN (10:27)
[2023-01-28] MEDS ORDERED: BISMUTH SUBSALICYLATE 524 MG/30 ML PO PRN (10:27)
[2023-01-28] MEDS ORDERED: MAG HYDROX/AL HYDROX/SIMETH 30 ML UNIT-DOSE CUP PO PRN (10:27)
[2023-01-28] MEDS ORDERED: IBUPROFEN 600 MG TABLET (FP) PO PRN (10:27)
[2023-01-28] MEDS ORDERED: LORazepam 1 MG TABLET PO PRN (10:30)
[2023-01-28] MEDS: LORazepam 2 MG TABLET PO SCH ×3 (10:56→22:28)
[2023-01-28] MEDS ORDERED: THIAMINE HCL 100 MG TABLET (FP) PO SCH (22:00)
[2023-01-28] MEDS ORDERED: MELATONIN 5 MG TABLETS PO SCH (22:00)
[2023-01-29] MEDS: LORazepam 2 MG TABLET PO SCH ×2 (06:00→10:28)
[2023-01-29 09:36] VITALS: BP 117/77; PULSE 92; RESP 16; TEMP 95.5
[2023-01-29 09:59] LABS: HEMATOCRIT 27.3 % (32.4-45.2); HEMOGLOBIN 8.4 GM/dL (10.7-15.3); MCH 22.7 pg (25.7-33.7); MCHC 30.7 g/dl (32.0-36.0); MEAN PLT VOLUME 9.7 fl (7.5-11.1); PLATELET COUNT 321 10^3/uL (134-434); POTASSIUM 4.5 mmol/L (3.5-5.1); RBC 3.69 M/mm3 (3.60-5.2); RDW 19.7 % (11.6-15.6); WHITE BLOOD COUNT 4.4 K/mm3 (4.0-10.0)
[2023-01-29] MEDS ORDERED: PRENATAL VITAMINS W/ FOLIC ACID TABLET (FP) PO SCH (10:00)
[2023-01-29 10:01] LABS: ALBUMIN 3.7 g/dl (3.4-5.0); BLOOD UREA NITROGEN 22.1 mg/dL (7-18); CALCIUM 9.1 mg/dL (8.5-10.1)
[2023-01-29 10:04] LABS: CREATININE 0.7 mg/dL (0.55-1.3)
[2023-01-29 10:06] LABS: BILIRUBIN,TOTAL 0.2 mg/dL (0.2-1); TOT PROT 7.9 g/dl (6.4-8.2)
[2023-01-29] MEDS ORDERED: FERROUS SO4 325 MG TABLET (FP) PO SCH (12:00)
[2023-01-29] MEDS ORDERED: LORazepam 1 MG TABLET PO SCH (17:00)
[2023-01-30] MEDS ORDERED: LORazepam 1 MG TABLET PO SCH (05:00)
[2023-01-31] MEDS ORDERED: LORazepam 0.5 MG TABLET PO PRN
[2023-01-31] MEDS ORDERED: LORazepam 0.5 MG TABLET PO SCH (05:00)
[2023-02-01] MEDS ORDERED: LORazepam 0.5 MG TABLET PO ONE (05:00)
== END 2023-01-29 13:05 | disposition left against medical advice (07) | DRG 770 ==
LOC: YASAS 09:32 → Y3N 11:06 → Y6N 11:45
PROVIDERS: ADMIT Allergy & Immunology; ATTEND Allergy & Immunology
PROC: HZ2ZZZZ Detoxification Services for Substance Abuse Treatment (ICD-10-PCS; principal; 2023-01-28)
DX: F10.230 Alcohol dependence with withdrawal, uncomplicated (principal); F14.10 Cocaine abuse, uncomplicated; F31.31 Bipolar disorder, current episode depressed, mild; F41.8 Other specified anxiety disorders; D50.8 Other iron deficiency anemias; I10 Essential (primary) hypertension; R63.4 Abnormal weight loss; Z68.20 Body mass index [BMI] 20.0-20.9, adult
CPT/HCPCS: 36415; 80053; 81025; 85027; 86780; 87635